=== PATIENT | female | born 1950 | race Caucasian/White ===

== ENCOUNTER 2017-07-10 17:29 | Inpatient (IN) | payer MEDICARE ==
[~2017-07-10] VITALS: Ht 165.1 cm; Wt 87.6 kg
--- NOTE | 2017-07-10 17:45 | NUR ---
BIB RA 102 C/O ALTERED MENTAL STATUS X LAST NIGHT, CL=[id number]. FACE SYMMETRICAL, BILATERAL STRONG AND EQUAL BULLDOZER OPERATOR, DIAPHORETIC. NO SOB. VITALS STABLE. SAFETY AND COMFORT MEASURES IN PLACE. AWAITNG MD ORDERS.
--- NOTE | 2017-07-10 18:30 | NUR ---
PHYSICIAN UNDERWRITER AT BEDSIDE.
--- NOTE | 2017-07-10 18:32 | NUR ---
TURNAROUND ENGINEER AT BEDSIDE FOR BLOOD DRAW.
[2017-07-10 18:44] LABS: BASOPHILS % (AUTO) 0.5 % (0.0-2.0); EOSINOPHILS # (AUTO) 0.1 /CMM (0.0-0.7); EOSINOPHILS % (AUTO) 1.5 % (0.0-6.0); HEMATOCRIT 30 % (33-45); HEMOGLOBIN 10.1 g/dL (11.5-14.8); LYMPHOCYTES # (AUTO) 1.4 /CMM (0.8-4.8); LYMPHOCYTES % (AUTO) 20.9 % (20.0-44.0); MEAN CORPUSCULAR HEMOGLOBIN 31 PG (26.0-33.0); MEAN CORPUSCULAR HGB CONC 34 g/dl (31.0-36.0); MEAN CORPUSCULAR VOLUME 91 fL (82-100); MONOCYTES # (AUTO) 0.4 /CMM (0.1-1.30); MONOCYTES % (AUTO) 6.5 % (2.0-12.0); NEUTROPHILS # (AUTO) 4.6 /CMM (1.8-8.9); NEUTROPHILS % (AUTO) 70.6 % (43.0-81.0); PLATELET COUNT (AUTO) 205 /CMM (150-450); RDW COEFFICIENT OF VARIATION 12.2 (11.5-15.0); RED BLOOD CELL COUNT(AUTO) 3.29 MIL/uL (4.0-5.2); WHITE BLOOD COUNT (AUTO) 6.5 K/uL (4.3-11.0)
--- NOTE | 2017-07-10 18:56 | NUR ---
URINE OBTAINED VIA STRAIGHT CATH PER MD ORDERS AND SENT TO LAB.
[2017-07-10 18:59] LABS: CALCIUM, SERUM 9.6 mg/dL (8.5-10.1); CARBON DIOXIDE 22 mmol/L (21-32); CHLORIDE 107 mmol/L (98-107); CREATININE 1.3 mg/dL (0.6-1.3); GLUCOSE 240 mg/dL (74-106); POTASSIUM 4.8 mmol/L (3.5-5.1); SODIUM SERUM 140 mmol/L (136-145); UREA NITROGEN, BLOOD 35 mg/dL (7-18)
[2017-07-10 19:00] LABS: INR 1.07 (0.87-1.13); PROTHROMBIN TIME 11.1 SECS (9.5-12.7)
[2017-07-10 19:05] LABS: ACETAMINOPHEN < 2 ug/ml (10-30); ALANINE AMINOTRANSFERASE 54 U/L (12-78); ALBUMIN 3.3 g/dL (3.4-5.0); ALCOHOL, BLOOD < 3 mg/dL (0-0); ALKALINE PHOSPHATASE 137 U/L (46-116); ASPARTATE AMINOTRANSFERASE 32 U/L (15-37); BILIRUBIN,DIRECT 0.1 mg/dL (0.0-0.2); BILIRUBIN,TOTAL 0.3 mg/dL (0.2-1.0); SALICYLATE 3.1 mg/dL (2.8-20.0); TOTAL PROTEIN, SERUM 7.6 g/dL (6.4-8.2)
--- NOTE | 2017-07-10 19:05 | NUR ---
PATIENT TAKEN TO CT
--- NOTE | 2017-07-10 19:05 | NUR ---
Julio santiago in [facility] - 07/10/17 at 1938 by RICO PATIENT RETURNED FROM CT.
[2017-07-10 19:06] LABS: TROPONIN I < 0.017 ng/mL (0.00-0.056)
--- NOTE | 2017-07-10 19:10 | NUR ---
CALLED NURSING SUP FOR TELE BED
--- NOTE | 2017-07-10 19:15 | NUR ---
PATIENT RETURNED FROM CT IN STABLE CONDITION.
[2017-07-10 19:18] LABS: SERUM AMMONIA 34 umol/L (11-32)
--- NOTE | 2017-07-10 19:25 | NUR ---
SUKH DOYLE TALKING TO DR. MOORE REGARDING PT ADMISSION.
[2017-07-10 19:27] LABS: APPEARANCE,URINE Clear (CLEAR); BILIRUBIN,URINE Negative (NEGATIVE); BLOOD, URINE Moderate Ery/uL (NEGATIVE); COLOR,URINE Yellow (YELLOW); KETONES,URINE Negative (NEGATIVE); LEUKOCYTE ESTERASE ,URINE Trace (NEGATIVE); NITRITE, URINE Negative (NEGATIVE); PH,URINE 5.5 (5.0-8.0); PROTEIN,URINE Negative (NEGATIVE); UGLUCOSE 250 MG/DL mg/dL (NEGATIVE); UROBILINOGEN,URINE 0.2 EU/dL (0.2)
--- NOTE | 2017-07-10 19:29 | NUR ---
BED 324-1 TELE
[2017-07-10] MEDS ORDERED: IV NS 0.9% 1,000 ML BAG IV ONE (19:30)
[2017-07-10] MEDS ORDERED: IV NS 0.9% 1,000 ML IV PRN (19:33)
--- NOTE | 2017-07-10 19:35 | NUR ---
REPORT GIVEN TO BLINDMAKER, ED FOR CRISTAL.
[2017-07-10 19:40] LABS: BACTERIA,URINE Few /HPF (None Seen); CLINITEST,URINE 1%; SQUAMOUS EPITHELIAL CELL,UR Moderate /HPF (None Seen)
--- NOTE | 2017-07-10 19:41 | NUR ---
REPORT CALLED TO WELL SERVICING RIG OPERATOR JEM. WILL TRANSPORT PT VIA ACLS PROTOCOL.
--- NOTE | 2017-07-10 19:50 | NUR ---
PRIOR AUTHORIZATION TECHNICIAN NOTES: RECEIVED REPORT FROM ED APPLIANCE ADJUSTER, PT BROUGHT TO THE UNIT VIA STRETCHER, PT CAME IN BECAUSE OF ALOC, PT ON SIMPLE MASK PT IS MOUTH BREATHER AND DESATURATE WHEN SLEEPING, PT IS A/O X2, BOYFRIEND AT BED SIDE, PT HAS LEFT HAND G20 IV ACCESS WITH ONGOING 1L NS BOLUS. PT ORIENTED TO THE UNIT POLICY AND HOURLY ROUNDING, PLACED ON TELE MONITOR, WITH SINUS RHYTHM TO SINUS ARRYTHMIA READING HR 80, PT DENIES ANY CHEST PAIN BUT IS C/O LEG PAIN AND FEET PAIN / REQUESTING FOR MORPHINE TAB. SAFETY PRECAUTIONS FOR FALL INITAITED CALL LIGHT IN REACH, VS TAKEN AND RECORDED, WILL CONTINUE TO MONITOR
[2017-07-10 20:00] VITALS: BP_SYST 154; BP_SYST 155; BP_DIAS 105; BP_DIAS 92
[2017-07-10] MEDS ORDERED: INSULIN REGULAR, HUMAN 100 UNIT/ML 3 ML VIAL SQ PRN (20:00)
[2017-07-10] MEDS ORDERED: ZOLPIDEM TARTRATE 5 MG TABLET PO PRN (20:00)
[2017-07-10] MEDS ORDERED: DEXTROSE 50%-WATER 50 ML DISP.SYRIN IV PRN ×2 (20:00→20:15)
[2017-07-10] MEDS ORDERED: HYDROCODONE/APAP 5/325MG 1 EACH TABLET PO PRN (20:00)
[2017-07-10] MEDS ORDERED: ONDANSETRON HCL/PF 4 MG/2 ML VIAL IVP PRN ×2 (20:00→20:15)
[2017-07-10] MEDS ORDERED: MAGNESIUM HYDROXIDE 30 ML UDC PO PRN ×2 (20:00→20:15)
[2017-07-10] MEDS ORDERED: *INSULIN REGULAR(HUMULIN R)HUM 100 UNIT/ML VIAL SQ PRN (20:00)
[2017-07-10] MEDS ORDERED: ACETAMINOPHEN 325 MG TABLET PO PRN ×2 (20:00→20:15)
[2017-07-10] MEDS ORDERED: MAG HYDROX/AL HYDROX/SIMETH 30 ML UDC PO PRN ×2 (20:00→20:15)
[2017-07-10] MEDS ORDERED: Z GUARD REMEDY 2 OZ OINT TP PRN ×2 (20:00→20:15)
[2017-07-10] MEDS ORDERED: METF10002 PO (20:25)
[2017-07-10] MEDS ORDERED: MORP30TA PO (20:25)
--- NOTE | 2017-07-10 20:25 | NUR ---
RN NOTES: PT STATED SHE CANNOT REMEMBER THE OTHER MEDICATION SHE'S TAKING AT HOME, SHE ADDED TJHAT THE ONLY IMPORTANT ONE'S SHE CAN REMEMBER IS HER MORPHINE TABLET 30MG TAB PO AND SHE TAKES IT 3X A DAY, AND SHE ALSO TAKES METFORMIN 1000MG TID, ALSO SHE ADDED HYDROXYZINE 60MG TAB AT NIGHT TIME TO HELP HER SLEEP. WHEN ASKED ABOUT HER OTHER MEDS LIKE BP MEDS SHE STATED SHE CANNOT RECALL, SO I INFORMED THE PT'S BOYFRIEND TO PLEASE BRING THE MEDICATION BOTTLE OR MED LIST IN AM TO HELP WITH MED RECONCILIATION, AND THEY AGREE. ALSO PT REFUSED SCD SHE STATED HER LEG ARE ALREADY HURTING AND DOESNT WANT ANYTHING FOR THE LEGS. EDUCATION PROVIDED TO THE PT, REGARDING RISK AND BENEFITS OF DVT PUMP.
[2017-07-10] MEDS: HYDROCODONE/APAP 5/325MG 1 EACH TABLET PO PRN (20:31)
--- NOTE | 2017-07-10 20:31 | NUR ---
PRN NORCO: PT C/O PAIN ON HER BILATERAL LEG AND FEET, REQUESTING FOR HER OWN MORPHINE TABLET 30MG, I INFORMED HER THAT I HAVE TO CALL MD REGARDING THIS MEDICATION SINCE THERE'S ONLY NORCO ORDERED FOR HER PAIN, PT STATED SHE WILL GET NORCO INSTEAD AND CALL DOCTOR AFTERWARDS, PT'S BOYFRIEND AT BED SIDE. PRN NORCO 5/325 MG TAB PO ADMINISTERED TO THE PT AT THIS TIME, WILL CONTINUE TO MONITOR AND REASSES
--- NOTE | 2017-07-10 21:00 | NUR ---
SKIN ASSESSMENT: BODY CHECK PERFORMED, NO SKIN ISSUES NOTED, NO WOUND OR REDNESS ON PERINEAL AND SACRAL AREA, WITNESS BY SKY BARTON. ALSO PT'S BOYFRIEND BROUGHT PT'S CLOTHES BACK TO THEIR HOUSE.
[2017-07-10 22:00] VITALS: BP 155/79
[2017-07-10] MEDS ORDERED: BLOOD SUGAR DIAGNOSTIC 1 EACH STRIP VI SCH (22:00)
--- NOTE | 2017-07-10 22:26 | NUR ---
rn notes: contacted [facility] freedom of information officer regarding pt's diet order, earlier pt was placed on ccho diet but apparently afterwards it was cancelled, pt is diabetic, also to f/u as pt requesting to get her own morphine as pain medication
[2017-07-10] MEDS ORDERED: INSULIN REGULAR, HUMAN 100 UNIT/ML 3 ML VIAL ONE (22:30)
--- NOTE | 2017-07-10 22:37 | NUR ---
RN NOTES: SPOKE WITH DR MOORE, INFORMED ABOUT PT'S REQUEST FOR MORPHINE TABLET ALSO INFORMED ABOUT PT'S TELE READING SINUS RHYTHM TO SINUS ARRHYTHMIA HR 65-70'S VSS, PT HAS NO C/O CHEST PAIN A/O X2 ON SIMPLE MASK AT 6L, INFORMED ALSO ABOUT DIET ORDER, AND REPORTED ABNORMAL LABS SUCH AMMONIA 34, BNP 228, U.GLUCOSE 250MG/DL, URINE WBC 6-10, + URINE OPIATES, PER MD STATED "PUT DIABETIC DIET, AND WILL TAKE A LOOK AT MED RECON, AND CONTINUE MONITORING FOR HEART RHYTHM".
[2017-07-10] MEDS: BLOOD SUGAR DIAGNOSTIC 1 EACH STRIP VI SCH (22:45)
[2017-07-10] MEDS: IV NS 0.9% 1,000 ML IV PRN (22:46)
[2017-07-10] MEDS: *INSULIN REGULAR(HUMULIN R)HUM 100 UNIT/ML VIAL SQ PRN (22:48)
--- NOTE | 2017-07-10 22:48 | NUR ---
accuc check: blood sugar checked and reveal 260, 6units of insulin given per sliding scale, will monitor pt for any s/s of hypoglycemia
[2017-07-10] MEDS ORDERED: HYDR-3026 PO (23:06)
[2017-07-10] MEDS ORDERED: CEFTRIAXONE 1 G VIAL ONE (23:43)
--- NOTE | 2017-07-10 23:50 | NUR ---
rn notes: pt accidentally pulled out her iv access, tried to reinset an iv 3x but veins blew, called dehorner maddi to start a line
[2017-07-11] VITALS (7 sets, daily range): BP systolic 147–176; BP diastolic 68–99
[2017-07-11] MEDS: CEFTRIAXONE 1 G in IV D5W 50 ML IV SCH ×2 (00:23→22:32)
[2017-07-11] MEDS: ZOLPIDEM TARTRATE 5 MG TABLET PO PRN (00:24)
--- NOTE | 2017-07-11 00:25 | NUR ---
prn ambien: pt requested for sleeping pill, prn ambien 5mg tab po administered to the pt at this time, will continue to monitor and reassess
[2017-07-11] MEDS: HYDROCODONE/APAP 5/325MG 1 EACH TABLET PO PRN ×3 (02:00→10:41)
--- NOTE | 2017-07-11 02:00 | NUR ---
prn norco: pt c/o 04/27 pain on bilateral leg and feet requesting for norco, prn norco 5/325 mg tab po administered to the pt at this time, will continue to monitor and reassess
--- NOTE | 2017-07-11 06:24 | NUR ---
PRN NORCO: PT C/O 04/27 PAIN ON BILATERAL L;EGS FEET TOES, REQUESTING FOR PAIN MEDICATION, PRN NORCO 5/325 MG TAB PO ADMINISTERED TO THE PT AT THIS TIME, WILL CONTINUE TO MONITOR AND REASSESS
[2017-07-11] MEDS: BLOOD SUGAR DIAGNOSTIC 1 EACH STRIP VI SCH ×4 (06:27→22:32)
[2017-07-11] MEDS: INSULIN REGULAR, HUMAN 100 UNIT/ML 3 ML VIAL SQ PRN ×3 (06:29→18:00)
--- NOTE | 2017-07-11 06:30 | NUR ---
ACCU CHECK: BLOOD SUGAR CHECK AND REVEAL 190, 3UNITS OF INSULIN GIVEN PER SLIDING SCALE, WILL MONITOR PT FOR ANY S/S OF HYPOGLYCEMIA, PT ON DIABETIC DIET, TOLERATING PO INTAKE WELL
--- NOTE | 2017-07-11 06:45 | NUR ---
rn closing notes: pt in bed, remains a/o x2, on simple mask 5L, res[iration even and unlabored, last pain meds administered at 0624am, left hand iv access remains patent and flushing well infuisng with ns at 75ml/hr, remains on sinus rhythm with episode of sinus arrhythmia hr 90. ble kept offloaded. vs remains stable, needs attended. awaiting for pt's boyfriend to bring the medication list as pt cannot remember all her meds especially the dosage. safety precautions for fall remains engaged call light in reach, will endorse to day rn for anita.
[2017-07-11] MEDS ORDERED: PANTOPRAZOLE 40 MG TABLET.DR PO SCH (07:30)
--- NOTE | 2017-07-11 07:58 | NUR ---
TELE/RN NOTES RECEIVED PATIENT RESTING IN BED AWAKE AND ORIENTED X3, ON 02 AT 4LPM VIA SIMPLE MASK. PER TELE MONITOR SR HR 82 AT THIS TIME. PATIENT COMPLAINTS OF CHRONIC PAIN ON MULTIPLE PAIN MEDICATIONS. PHARMACIST RECON NURSE BY THE BEDSIDE OBTAINING MEDICATION HISTORY. IV TO LEFT HAND 22G INFUSING NS AT 75CC/HR. SAFETY MEASURES RENDERED, CALL LIGHT PLACED WITHIN REACH. WILL CONTINUE TO MONITOR.
[2017-07-11] MEDS: PANTOPRAZOLE 40 MG TABLET.DR PO SCH (09:22)
--- NOTE | 2017-07-11 10:41 | NUR ---
MS/RN NOTES PATIENT COMPLAINING OF BLE/BACK PAIN AT LEVEL 7/10 DESCRIBED TO BE DULL/HEAVY. ADMINISTERED NORCO 5-325MG 1 TAB EVERY 4 HOURS NEEDED FOR PAIN
--- NOTE | 2017-07-11 11:19 | NUR ---
MS/RN NOTES PATIENTS BOYFRIEND WILL PROVIDE MEDICATION LIST.
[2017-07-11] MEDS ORDERED: METO25TA3 PO (14:49)
[2017-07-11] MEDS ORDERED: MELO-264 PO (14:49)
[2017-07-11] MEDS ORDERED: DULO60CA45 PO (14:49)
[2017-07-11] MEDS ORDERED: VALA500T35 PO (14:49)
[2017-07-11] MEDS ORDERED: FURO-145 PO (14:49)
[2017-07-11] MEDS ORDERED: DOXA2TAB2 PO (14:49)
[2017-07-11] MEDS ORDERED: LOSA100T15 PO (14:49)
[2017-07-11] MEDS ORDERED: ATOR40TA PO (14:49)
[2017-07-11] MEDS ORDERED: PHEN100C4 PO (14:49)
[2017-07-11] MEDS ORDERED: ZIPR60CA2 PO (14:49)
[2017-07-11] MEDS ORDERED: FENO200C PO (14:49)
[2017-07-11] MEDS ORDERED: GABA-536 PO (14:49)
[2017-07-11] MEDS ORDERED: OMEP40CA37 PO (14:49)
[2017-07-11] MEDS ORDERED: MORP30TA59 PO (14:49)
[2017-07-11] MEDS ORDERED: OXYC-128 PO (14:49)
[2017-07-11] MEDS ORDERED: TRAZ-144 PO (14:49)
--- NOTE | 2017-07-11 15:30 | NUR ---
MS/RN NOTES HOME MEDICATIONS PROVIDED TO MED RECON NURSE NOTIFIED TO RECONCILE.
[2017-07-11] MEDS: PHENYTOIN EXTENDED RELEASE 100 MG CAPSULE PO SCH (16:32)
[2017-07-11] MEDS: MORPHINE SULFATE SR 30 MG TABLET.SA PO SCH (16:33)
[2017-07-11] MEDS: LOSARTAN POTASSIUM 50 MG TABLET PO SCH (16:33)
[2017-07-11] MEDS: GABAPENTIN 400 MG CAPSULE PO SCH (16:33)
[2017-07-11] MEDS: oxyCODONE/APAP (5/325 MG) 1 UDTAB TABLET PO SCH (16:34)
[2017-07-11] MEDS: ZIPRASIDONE 20 MG CAPSULE PO SCH (17:32)
[2017-07-11] MEDS: ATORVASTATIN 40 MG TABLET PO SCH (17:59)
--- NOTE | 2017-07-11 18:35 | NUR ---
MS/RN NOTES PATIENT RESTING IN BED, ALL DUE MEDICATIONS GIVEN ALL NEEDS MET AND ATTENDED. NO SIGNIFICANT CHANGES NOTED, PATIENT REMAINS STABLE AT THIS TIME. ALL MEDICATIONS RECONCILED AND ADMINISTERED PER MD ORDERS, [place] MANAGEMENT PROVIDED, SAFETY MEASURES RENDERED. PATIENT RESTING IN BED COMFORTABLY. BLOOD CHECKS DONE SCHEDULED. NO S/S OF COMPLICATIONS NOTED. WILL ENDOURSE CARE TO MAITRE D FOR CRISTAL.
--- NOTE | 2017-07-11 19:37 | NUR ---
RN INITIAL NOTES: RECEIVED REPORT FROM TAYLOR FUENTES, PT IN BED, SLEEPING, AROUSES TO TACTILE STIMULI, PT CURRENTLY ON RA, BUT USES SIMPLE MASK WHEN ASLEEP, SHE ALWAYS FORGOT TO USE THE MASK, EDUCATION PROVIDED TO THE PT, PT DENIES ANY PAIN OR DISCOMFORT AT THIS TIME, SHE RECEIVED HER PAIN MEDICATION AROUND 1630. LEFT HAND IV ACCESS REMAINS PATENT AND FLUSHING WELL, INFUSING WITH NS AT 75ML/HR. BLE KEPT OFFLOADED. PT STILL REFUSED FOR SCD. SAFETY PRECAUTIONS FOR FALL INITIATED CALL LIGHT IN REACH, WILL CONTINUE TO MONITOR
[2017-07-11] MEDS: IV NS 0.9% 1,000 ML IV PRN (21:21)
[2017-07-11] MEDS: TRAZODONE 50 MG TABLET PO SCH (22:00)
[2017-07-11] MEDS: *INSULIN REGULAR(HUMULIN R)HUM 100 UNIT/ML VIAL SQ PRN (22:34)
--- NOTE | 2017-07-11 22:34 | NUR ---
ACCU CHECK: BLOOD SUGAR CHECK AND REVEAL 189, 3UNITS OF INSULIN GIVEN PER SLIDING SCALE, PT ON DIABETIC DIET, TOLERATING PO INTAKE WELL, ALSO RECEIVING NS AT 75ML/HR. WILL MONITOR PT FOR ANY S/S OF HYPOGLYCEMIA.
--- NOTE | 2017-07-11 23:41 | NUR ---
NON ADMIN OF DESYREL: PT HAS SCHEDULED DESYREL AT 2200, HOWEVER PT STILL VERY SLEEPY FROM THE PAIN MEDICATIONS SHE RECEIVED AT 1630. PT AROUSES TO TACTILE STIMULI, AND WHEN YOU CALL THE NAME, PT ON SIMPLE MASK 4L VSS, RELAYED TO MIXING TUMBLER OPERATORMLIIND DODSON, DESYREL WILL NOT BE ADMINISTER AT THIS TIME FOR PT'S SAFETY, ALREADY VERY SLEEPY, BLOOD SUGAR 189, ABLE TO EAT SOME SNACKS BUT AFTER THAT WENT BACK TO SLEEP AGAIN. WILL CONTINUE MONITORING THE PT.
[2017-07-12] VITALS: BP 145/66
[2017-07-12 00:37] VITALS: BP 145/66
[2017-07-12] MEDS: HYDROCODONE/APAP 5/325MG 1 EACH TABLET PO PRN ×3 (00:43→23:03)
--- NOTE | 2017-07-12 00:43 | NUR ---
PRN NORCO: PT C/O LOWE BACK PAIN 04/27 REQUESTING FOR PAIN MEDICATION, PRN NORCO 5/325 MG TAB PO ADMINISTERED TO THE PT AT THIS TIME, WILL CONTINUE TO MONITOR AND REASSESS. ALSO INFORMED PT REGARDING DESYREL, SHE STATED SHE DOESN'T WANT IT AND WOULD RATHER GET HER PAIN MEDS,
[2017-07-12] MEDS: ZOLPIDEM TARTRATE 5 MG TABLET PO PRN (01:34)
--- NOTE | 2017-07-12 01:34 | NUR ---
PRN AMBIEN: PT REQUESTED FOR SLEEPING PILL, PRN AMBIEN 5MG TAB PO ADMINISTERED TO THE PT AT THIS TIME,
--- NOTE | 2017-07-12 04:47 | NUR ---
prn norco: pt c/o head ache and back ache 04/27 requesting for norco, prn norco 5/325 mg tab po administered to the pt at this time, will continue to monitor and reassess
[2017-07-12] MEDS: INSULIN REGULAR, HUMAN 100 UNIT/ML 3 ML VIAL SQ PRN ×3 (06:18→17:39)
[2017-07-12] MEDS: BLOOD SUGAR DIAGNOSTIC 1 EACH STRIP VI SCH ×4 (06:20→21:23)
--- NOTE | 2017-07-12 06:20 | NUR ---
accu check: blood sugar check and reveal 189, 3units of insulin given per sliding scale, pt would like to get insulin now she stated she would like to eat pudding as she is hungry.
--- NOTE | 2017-07-12 06:47 | NUR ---
rn closing notes: pt in bed, awake, remains a/o x 2-3 on simple mask at 4L respiration even and unlabored. last pain meds given at 0447am. left hand iv access remains patent and flushing well, infusing with ns at 75ml/hr. ble kept offloaded. awaiting pt eval. vs remains stable, needs attended. safety precautions for fall remains engaged call light in reach, will endorse to day rn for anita.
--- NOTE | 2017-07-12 07:25 | NUR ---
RN OPEN NOTES RECEIVED REPORT FROM WORKGROUP LEADER NURSE. PATIENT IS IN BED, AWAKE AND ORIENTED TO NAME, PLACE AND TIME. NO SIGNS OF DISTRESS OR DISCOMFORT. BREATHING EVEN AND UNLABORED. IV SITE IS INTACT AND PATENT WITH NS INFUSING AT 75ML/HR, NO SIGNS OF REDNESS OR INFILTRATION. BED IN LOW LOCKED POSITION WITH SIDE RAILS X2. CALL LIGHT WITHIN REACH. WILL CONTINUE TO MONITOR AND ASSESS PATIENT THOROUGH OUT MY SHIFT .
[2017-07-12] MEDS ORDERED: Medication Not On Formulary EA (Omeprazole 40 MG) PO SCH (07:30)
[2017-07-12 08:00] VITALS: BP 155/82
[2017-07-12] MEDS: PANTOPRAZOLE 40 MG TABLET.DR PO SCH (08:29)
[2017-07-12] MEDS: DOXAZOSIN MESYLATE (1 MG) 1 MG TABLET PO SCH (08:30)
[2017-07-12] MEDS: VALACYCLOVIR HCL 500 MG TABLET PO SCH (08:31)
[2017-07-12] MEDS: PHENYTOIN EXTENDED RELEASE 100 MG CAPSULE PO SCH ×2 (08:32→16:35)
[2017-07-12] MEDS: GABAPENTIN 400 MG CAPSULE PO SCH ×3 (08:33→16:36)
[2017-07-12] MEDS: METOPROLOL SUCCINATE 25 MG TAB.SR.24H PO SCH (08:33)
[2017-07-12] MEDS: ZIPRASIDONE 20 MG CAPSULE PO SCH ×2 (08:34→16:36)
[2017-07-12] MEDS: LOSARTAN POTASSIUM 50 MG TABLET PO SCH (08:35)
[2017-07-12] MEDS: DULOXETINE HCL 30 MG CAPSULE.DR PO SCH ×2 (08:35→16:36)
[2017-07-12] MEDS: FENOFIBRATE NANOCRYS (145 MG) 145 MG TABLET PO SCH (08:36)
[2017-07-12] MEDS: oxyCODONE/APAP (5/325 MG) 1 UDTAB TABLET PO SCH ×3 (08:37→17:33)
[2017-07-12] MEDS: MORPHINE SULFATE SR 30 MG TABLET.SA PO SCH ×3 (08:38→17:33)
[2017-07-12 09:17] LABS: BASOPHILS % (AUTO) 0.5 % (0.0-2.0); EOSINOPHILS # (AUTO) 0.1 /CMM (0.0-0.7); EOSINOPHILS % (AUTO) 1.5 % (0.0-6.0); HEMATOCRIT 34 % (33-45); HEMOGLOBIN 11.2 g/dL (11.5-14.8); LYMPHOCYTES # (AUTO) 1.9 /CMM (0.8-4.8); LYMPHOCYTES % (AUTO) 21.7 % (20.0-44.0); MEAN CORPUSCULAR HEMOGLOBIN 31 PG (26.0-33.0); MEAN CORPUSCULAR HGB CONC 33 g/dl (31.0-36.0); MEAN CORPUSCULAR VOLUME 92 fL (82-100); MONOCYTES # (AUTO) 0.5 /CMM (0.1-1.30); MONOCYTES % (AUTO) 5.3 % (2.0-12.0); NEUTROPHILS # (AUTO) 6.1 /CMM (1.8-8.9); PLATELET COUNT (AUTO) 227 /CMM (150-450); RDW COEFFICIENT OF VARIATION 13.1 (11.5-15.0); RED BLOOD CELL COUNT(AUTO) 3.68 MIL/uL (4.0-5.2); WHITE BLOOD COUNT (AUTO) 8.6 K/uL (4.3-11.0)
[2017-07-12 09:40] LABS: CALCIUM, SERUM 9.8 mg/dL (8.5-10.1); CREATININE 0.9 mg/dL (0.6-1.3); MAGNESIUM 1.3 mg/dL (1.8-2.4); PHOSPHORUS 3.6 mg/dL (2.5-4.9); POTASSIUM 3.8 mmol/L (3.5-5.1)
[2017-07-12] MEDS ORDERED: IV D5/0.45 NACL 500 ML IV SCH (13:00)
[2017-07-12] MEDS: IV D5/0.45 NACL 1,000 ML IV SCH (13:17)
[2017-07-12] MEDS: Magnesium 1GM/D5W 100ML PREMIX 100 ML IV SCH ×4 (13:17→17:40)
[2017-07-12 16:00] VITALS: BP 151/82
[2017-07-12] MEDS: ATORVASTATIN 40 MG TABLET PO SCH (17:32)
--- NOTE | 2017-07-12 18:37 | NUR ---
RN CLOSING NOTES PATIENT IS IN BED, ALERT AND ORIENTED TO NAME, PLACE AND TIME. NO SIGNS OF DISTRESS OR DISCOMFORT. BREATHING EVEN AND UNLABORED. IV SITE IS INTACT AND PATENT, CURRENTLY RUN 75ML/HR OF D51/2NS. NO SIGNS OR SYMPTOMS OF REDNESS OR INFILTRATION. MAGNESIUM LEVEL WAS 1.3, 4 GRAMS OF MAGNESIUM ADMINISTERED. PATIENT KEPT CLEAN AND DRY. ALL NURSING CARE ANTICIPATED. POSSIBLE DC IN AM. BED IN LOW LOCKED POSITION WITH SIDE RAILS X2. CALL LIGHT WITHIN REACH. WILL ENDORSE TO TIMBER TRIMMER NURSE
[2017-07-12] MEDS: TRAZODONE 50 MG TABLET PO SCH (21:23)
[2017-07-12] MEDS: *INSULIN REGULAR(HUMULIN R)HUM 100 UNIT/ML VIAL SQ PRN (21:25)
[2017-07-12] MEDS: CEFTRIAXONE 1 G in IV D5W 50 ML IV SCH (23:03)
[2017-07-13] MEDS: HYDROCODONE/APAP 5/325MG 1 EACH TABLET PO PRN (03:04)
--- NOTE | 2017-07-13 06:00 | NUR ---
pt alert,oriented, vss, afebrile, continue with iv fluids, new iv site started, old site infiltrated. chronic back pain and knee pain, norco given q4 hrs for migrain at night. slept well, all needs attended.call light at reached, no bm incontinent with urine at night.
[2017-07-13 06:32] LABS: BASOPHILS % (AUTO) 0.4 % (0.0-2.0); EOSINOPHILS # (AUTO) 0.2 /CMM (0.0-0.7); EOSINOPHILS % (AUTO) 2.9 % (0.0-6.0); HEMATOCRIT 31 % (33-45); HEMOGLOBIN 10.5 g/dL (11.5-14.8); LYMPHOCYTES # (AUTO) 1.9 /CMM (0.8-4.8); LYMPHOCYTES % (AUTO) 22.7 % (20.0-44.0); MEAN CORPUSCULAR HEMOGLOBIN 31 PG (26.0-33.0); MEAN CORPUSCULAR HGB CONC 33 g/dl (31.0-36.0); MEAN CORPUSCULAR VOLUME 92 fL (82-100); MONOCYTES # (AUTO) 0.6 /CMM (0.1-1.30); MONOCYTES % (AUTO) 7.7 % (2.0-12.0); NEUTROPHILS # (AUTO) 5.4 /CMM (1.8-8.9); NEUTROPHILS % (AUTO) 66.3 % (43.0-81.0); PLATELET COUNT (AUTO) 195 /CMM (150-450); RDW COEFFICIENT OF VARIATION 12.7 (11.5-15.0); RED BLOOD CELL COUNT(AUTO) 3.39 MIL/uL (4.0-5.2); WHITE BLOOD COUNT (AUTO) 8.2 K/uL (4.3-11.0)
[2017-07-13] MEDS: BLOOD SUGAR DIAGNOSTIC 1 EACH STRIP VI SCH ×2 (06:41→12:36)
[2017-07-13] MEDS: PANTOPRAZOLE 40 MG TABLET.DR PO SCH (06:41)
[2017-07-13] MEDS: IV D5/0.45 NACL 1,000 ML IV SCH (06:42)
[2017-07-13] MEDS: INSULIN REGULAR, HUMAN 100 UNIT/ML 3 ML VIAL SQ PRN ×2 (06:46→12:41)
[2017-07-13 07:00] LABS: CALCIUM, SERUM 8.8 mg/dL (8.5-10.1); MAGNESIUM 1.5 mg/dL (1.8-2.4); PHOSPHORUS 3.9 mg/dL (2.5-4.9); POTASSIUM 3.9 mmol/L (3.5-5.1)
--- NOTE | 2017-07-13 07:10 | NUR ---
MS RN OPENING NOTE RECEIVED REPORT ON THE PATIENT. IN BED A&OX4. PRESENTS WITH NON-LABORED, EVEN BREATHING ON RA. PATIENT REFUSED TO WEAR THE DVT PUMPS. SN EDUCATED THE PATIENT ON THE IMPORTANCE OF MECHANICAL VTE PROPHYLAXIS AND ABOUT VTE RISK. PATIENT VERBALIZED UNDERSTANDING AND AGREED FOR DVT PUMPS TO BE PUT ON. BED IS IN LOWEST POSITION, SIDE RAILS UP X 2, CALL LIGHT WITHIN REACH. ALL NEEDS ATTENDED TO. WILL CONTINUE TO MONITOR.
[2017-07-13 08:00] VITALS: BP_SYST 160; BP_DIAS 74; BP_DIAS 79
[2017-07-13] MEDS: FENOFIBRATE NANOCRYS (145 MG) 145 MG TABLET PO SCH (10:02)
[2017-07-13] MEDS: GABAPENTIN 400 MG CAPSULE PO SCH ×2 (10:03→12:42)
[2017-07-13] MEDS: PHENYTOIN EXTENDED RELEASE 100 MG CAPSULE PO SCH (10:04)
[2017-07-13] MEDS: VALACYCLOVIR HCL 500 MG TABLET PO SCH (10:04)
[2017-07-13] MEDS: ZIPRASIDONE 20 MG CAPSULE PO SCH (10:05)
[2017-07-13] MEDS: METOPROLOL SUCCINATE 25 MG TAB.SR.24H PO SCH (10:06)
[2017-07-13] MEDS: LOSARTAN POTASSIUM 50 MG TABLET PO SCH (10:07)
[2017-07-13] MEDS: oxyCODONE/APAP (5/325 MG) 1 UDTAB TABLET PO SCH ×2 (10:08→12:44)
[2017-07-13] MEDS: DOXAZOSIN MESYLATE (1 MG) 1 MG TABLET PO SCH (10:09)
[2017-07-13] MEDS: MORPHINE SULFATE SR 30 MG TABLET.SA PO SCH ×2 (10:10→12:43)
[2017-07-13] MEDS: DULOXETINE HCL 30 MG CAPSULE.DR PO SCH (10:11)
--- NOTE | 2017-07-13 10:13 | NUR ---
MS RN NOTE PATIENT WAS AMBULATION WITH PT. MEDICATIONS ADMINISTERED AFTER THE WALK PER PATIENT REQUEST.
[2017-07-13] MEDS: Magnesium 1GM/D5W 100ML PREMIX 100 ML IV SCH ×2 (11:59→13:18)
[2017-07-13] MEDS ORDERED: LEVO500T15 PO (13:04)
[2017-07-13 16:37] VITALS: BP 118/81
--- NOTE | 2017-07-13 16:56 | NUR ---
MS RN DISCHARGING NOTE DISCHARGE ORDER RECEIVED. DISCHARGE INFORMATION PROVIDED TO PATIENT/CAREGIVER. PT/PCG VERBALIZED UNDERSTANDING OF THE TEACHINGS. IV CATHETER REMOVED. CATHETER TIP IS INTACT. NON S/S OF INFECTION. OCCLUSIVE DRESSING APPLIED TO THE IC SITE. ALL BELONGINGS ARE ACCOUNTED FOR. VS WNL. DENIES PAIN/SOB/DISCOMFORT/DIFFICULTY BREADING CAREGIVER AYLA AND THE AT THE BEDSIDE. LEAVING THE UNIT VIA WHEELCHAIR ACCOMPANIED BY THE SKY STEWART. PATIENT IS LEAVING THE UNIT IN STABLE CONDITION .
== END 2017-07-13 17:00 | disposition home health service (06) | DRG 682 ==
LOC: ER 17:30 → TELE 20:15 → MED 07-11 08:48
PROVIDERS: ADMIT Internal Medicine; ATTEND Internal Medicine
DX: N17.0 Acute kidney failure with tubular necrosis (principal); E43 Unspecified severe protein-calorie malnutrition; G92 Toxic encephalopathy; E87.0 Hyperosmolality and hypernatremia; E11.9 Type 2 diabetes mellitus without complications; D64.9 Anemia, unspecified; N39.0 Urinary tract infection, site not specified; I10 Essential (primary) hypertension; G89.29 Other chronic pain; E83.42 Hypomagnesemia; E88.09 Other disorders of plasma-protein metabolism, not elsewhere classified; M62.50 Muscle wasting and atrophy, not elsewhere classified, unspecified site; Z68.32 Body mass index [BMI] 32.0-32.9, adult
CPT/HCPCS: 36415; 70450-TC; 71010-TC; 80048-TC; 80076-TC; 80305; 81000-TC; 82140-TC; 82962-TC; 83735-TC; 83880; 84100-TC; 84443-TC; 84484-TC; 85025-TC; 85730-TC; 87081-TC; 87086-TC; 97116-TC; 97530-TC; A4606; G0480; J0696; J1815; J3475; J3490; J7030; J7050; J7060; Z7610

== ENCOUNTER 2017-07-25 10:08 | Inpatient (IN) | payer MEDICARE ==
[~2017-07-25] VITALS: Ht 167.6 cm; Wt 84.8 kg
[~2017-07-25 10:08] MED LIST: ATOR40TA PO; DOXA2TAB2 PO; DULO60CA45 PO; FENO200C PO; FURO-145 PO; GABA-536 PO; HYDR-3026 PO; LEVO500T15 PO; LOSA100T15 PO; MELO-264 PO; METF10002 PO; METO25TA3 PO; MORP30TA59 PO; OMEP40CA37 PO; OXYC-128 PO; PHEN100C4 PO; TRAZ-144 PO; VALA500T35 PO; ZIPR60CA2 PO
--- NOTE | 2017-07-25 10:10 | NUR ---
[id number] FROM HOME: DEHYDRATED. GENERALIZED WEKNESS. BS IN FIELD 120, NAD NOTED, VSS, RESP EVEN AND UNLABORED, BLOOD SAMPLE AND URINE SENT TO LAB, WAITING FOR MD AMAYA.
[2017-07-25] MEDS ORDERED: IV NS 0.9% 1,000 ML BAG IV ONE (10:30)
[2017-07-25 10:52] LABS: BASOPHILS % (AUTO) 0.1 % (0.0-2.0); EOSINOPHILS # (AUTO) 0.2 /CMM (0.0-0.7); EOSINOPHILS % (AUTO) 2.2 % (0.0-6.0); HEMATOCRIT 32 % (33-45); HEMOGLOBIN 10.6 g/dL (11.5-14.8); LYMPHOCYTES # (AUTO) 2.4 /CMM (0.8-4.8); LYMPHOCYTES % (AUTO) 23.5 % (20.0-44.0); MEAN CORPUSCULAR HEMOGLOBIN 31 PG (26.0-33.0); MEAN CORPUSCULAR HGB CONC 33 g/dl (31.0-36.0); MEAN CORPUSCULAR VOLUME 92 fL (82-100); MONOCYTES # (AUTO) 0.7 /CMM (0.1-1.30); MONOCYTES % (AUTO) 7.2 % (2.0-12.0); NEUTROPHILS # (AUTO) 6.7 /CMM (1.8-8.9); PLATELET COUNT (AUTO) 190 /CMM (150-450); RDW COEFFICIENT OF VARIATION 12.9 (11.5-15.0); RED BLOOD CELL COUNT(AUTO) 3.47 MIL/uL (4.0-5.2); WHITE BLOOD COUNT (AUTO) 10.1 K/uL (4.3-11.0)
[2017-07-25 11:07] LABS: INR 1.01 (0.87-1.13); PROTHROMBIN TIME 10.5 SECS (9.5-12.7)
[2017-07-25 11:14] LABS: ALANINE AMINOTRANSFERASE 22 U/L (12-78); ALBUMIN 3.4 g/dL (3.4-5.0); ALKALINE PHOSPHATASE 69 U/L (46-116); ASPARTATE AMINOTRANSFERASE 28 U/L (15-37); BILIRUBIN,DIRECT 0.1 mg/dL (0.0-0.2); BILIRUBIN,TOTAL 0.3 mg/dL (0.2-1.0); CALCIUM, SERUM 8.5 mg/dL (8.5-10.1); CARBON DIOXIDE 24 mmol/L (21-32); CHLORIDE 101 mmol/L (98-107); GLUCOSE 78 mg/dL (74-106); POTASSIUM 5.4 mmol/L (3.5-5.1); SODIUM SERUM 136 mmol/L (136-145); TOTAL PROTEIN, SERUM 7.2 g/dL (6.4-8.2); UREA NITROGEN, BLOOD 65 mg/dL (7-18)
[2017-07-25 11:17] LABS: TROPONIN I < 0.017 ng/mL (0.00-0.056)
[2017-07-25 11:42] LABS: BILIRUBIN,URINE NEGATIVE (NEGATIVE); BLOOD, URINE NEGATIVE Ery/uL (NEGATIVE); KETONES,URINE TRACE (NEGATIVE); LEUKOCYTE ESTERASE ,URINE NEGATIVE (NEGATIVE); NITRITE, URINE NEGATIVE (NEGATIVE); PROTEIN,URINE NEGATIVE (NEGATIVE); UGLUCOSE NEGATIVE (NEGATIVE); UROBILINOGEN,URINE 0.2 EU/dL (0.2)
[2017-07-25 11:43] LABS: APPEARANCE,URINE SLIGHTLY CLOUDY (CLEAR)
[2017-07-25 11:44] LABS: COLOR,URINE YELLOW (YELLOW)
[2017-07-25 11:58] LABS: BACTERIA,URINE Few /HPF (None Seen); MUCUS,URINE Moderate /LPF (None Seen); RBC,URINE 0-2 /HPF (0-2); SQUAMOUS EPITHELIAL CELL,UR 0-2 /HPF (None Seen); URINE AMORPHOUS URATE Moderate /HPF (None Seen); WBC,URINE 0-2 /HPF (0-3)
[2017-07-25] MEDS ORDERED: IV NS 0.9% 1,000 ML IV ONE (12:00)
[2017-07-25] MEDS ORDERED: HYDROCODONE/APAP 5/325MG 1 EACH TABLET PO PRN (12:30)
[2017-07-25] MEDS ORDERED: MAG HYDROX/AL HYDROX/SIMETH 30 ML UDC PO PRN (12:30)
[2017-07-25] MEDS ORDERED: DEXTROSE 50%-WATER 50 ML DISP.SYRIN IV PRN (12:30)
[2017-07-25] MEDS ORDERED: ZOLPIDEM TARTRATE 5 MG TABLET PO PRN (12:30)
[2017-07-25] MEDS ORDERED: MAGNESIUM HYDROXIDE 30 ML UDC PO PRN (12:30)
[2017-07-25] MEDS ORDERED: Z GUARD REMEDY 2 OZ OINT TP PRN (12:30)
--- NOTE | 2017-07-25 13:46 | NUR ---
REPORT GIVEN TO ALFREDO WAY FOR [facility] TELE 322-1
[2017-07-25] MEDS: MORPHINE SULFATE SR 30 MG TABLET.SA PO SCH ×2 (14:20→17:23)
[2017-07-25] MEDS: GABAPENTIN 400 MG CAPSULE PO SCH ×2 (14:20→17:19)
[2017-07-25] MEDS ORDERED: hydrOXYzine PAMOATE 50 MG CAPSULE PO PRN (14:30)
--- NOTE | 2017-07-25 14:48 | NUR ---
RN EMBEDDED ADMITTING NOTES NOTES PT ADMITTED TO UNIT @ 1420H VIA Q1 LabsRNEY ALERT AND ORIENTED X1, UN-ABLE TO COMMUNICATE AT THIS TIME. PT WITH DIAGNOSIS OF ACUTE RENAL FAILURE WITH SIGNIFICANT DIAGNOSIS OF CAD, HTN, HYPERLIPIDEMIA, GERD, OSTEOARTHRITIS, DM, RHEUMATOID ARTHRITIS, ANEMIA, ANXIETY, BIPOLAR AND HX OF STENT. PT PLACED ON TELE-MONITORING WITH CURRENT READING OF TACHYCARDIA WITH HR OF 108, NO SIGNS OF CHEST PAIN OBSERVED. ON SUPPLEMENTAL O2 VIA N/C AT 2LPM, BREATHING EVEN WITH NO SOB NOTED. PT HAS IV ACCESS ON RIGHT HAND G#20 INTACT AND PATENT. V/S TAKEN AND RECORDED. SKIN IS INTACT WITH SMALL DISCOLORATION ON LEFT LOWER MEDIAL LEG, PHOTOS TAKEN AND FILED ON CHART. PT HAS DEAL CATHETER IN PLACED F # 16 AND ACTIVELY DRAINING CLEAR YELLOW URINE TO URINARY BAG. PUT BED AT LOWEST POSITION AND LOCKED WITH SIDE-RAILS UP X 3. BED ALARM TURN ON. CALL LIGHT WITHIN REACH. MADE AWARE OF ADMISSION AND CAME TO UNIT TO ASSES AND EVALUATE PT. WILL CONTINUE TO MONITOR PT ACCORDINGLY
--- NOTE | 2017-07-25 14:57 | NUR ---
RN NOTES NEURONTIN 400MG NOT GIVEN, PT CAME AT 1420 AND NEXT DOSE WILL BE 1700. TIME GAP TO GIVE IS TOO SHORT. CHARGE NURSE AWARE. WILL CONTINUE TO MONITOR. Addendum: 07/25/17 at 1605 by JUAN ALVA RN ADDENDUM; PT NO C/O PAIN AND DOESN'T SHOW SIGNS OF PAIN. MS CONTIN 30MG TAB SCHEDULED FOR 1300 NOT GIVEN, PT CAME TO UNIT AT 1420. NEXT SCHEDULE IS 1700. GAP TO GIVE IF GIVEN NOW WILL BE TOO SHORT. WILL CONTINUE TO MONITOR
[2017-07-25] MEDS: ACETAMINOPHEN 325 MG TABLET PO PRN (15:45)
[2017-07-25] MEDS: IV NS 0.9% 1,000 ML IV PRN (15:46)
[2017-07-25 16:00] VITALS: BP 136/72
--- NOTE | 2017-07-25 16:00 | NUR ---
RN NOTES URINE SPECIMEN COLLECTED VIA DEAL AND CALL LAB FOR PICK -UP.
[2017-07-25 16:38] LABS: APPEARANCE,URINE SL CLOUDY (CLEAR); BILIRUBIN,URINE NEGATIVE (NEGATIVE); BLOOD, URINE 1+ Ery/uL (NEGATIVE); COLOR,URINE YELLOW (YELLOW); KETONES,URINE NEGATIVE (NEGATIVE); LEUKOCYTE ESTERASE ,URINE 2+ (NEGATIVE); NITRITE, URINE NEGATIVE (NEGATIVE); PROTEIN,URINE TRACE mg/dl (NEGATIVE); UGLUCOSE NEGATIVE (NEGATIVE); UROBILINOGEN,URINE 0.2 EU/dL (0.2)
[2017-07-25 16:52] LABS: URINE TOTAL PROTEIN 46.3 mg/dL (0-11.9)
[2017-07-25 16:57] LABS: BACTERIA,URINE 4+ /HPF (None Seen); SQUAMOUS EPITHELIAL CELL,UR 0-2 /HPF (None Seen)
[2017-07-25] MEDS: ZIPRASIDONE 20 MG CAPSULE PO SCH (17:19)
[2017-07-25] MEDS: DULOXETINE HCL 30 MG CAPSULE.DR PO SCH (17:21)
[2017-07-25] MEDS: PHENYTOIN EXTENDED RELEASE 100 MG CAPSULE PO SCH (17:21)
--- NOTE | 2017-07-25 17:21 | NUR ---
RN NOTES PATIENT DISCONTINUED FROM TELE-MONITORING, NO SIGNS OF C/O CHEST PAIN NOTED. WILL CONTINUE TO MONITOR.
[2017-07-25] MEDS: BLOOD SUGAR DIAGNOSTIC 1 EACH STRIP IN SCH ×2 (17:23→21:20)
[2017-07-25] MEDS: ATORVASTATIN 40 MG TABLET PO SCH (17:24)
[2017-07-25 18:03] LABS: EOSINOPHIL,URINE Rare
--- NOTE | 2017-07-25 19:08 | NUR ---
MS/RN CLOSING NOTES PT ASLEEP IN BED AT THIS TIME, AROUSES EASILY. A/O X1, MUMBLES/MOUTH WORDS BUT HARD TO UNDERSTAND. SHE RESPONDS TO SIMPLE COMMANDS. MAINTAINED ON 02 VIA N/C AT 2LPM, NO SOB NOTED. IV ACCESS ON RIGHT HAND INTACT AND PATENT W/ IVF OF NS RUNNING AT 75ML/HR, NO SIGNS OF REDNESS OR INFILTRATION NOTED AT SITE. DEAL IN PLACED WITH OUTPUT OF 1,500ML EMPTIED AT 1800. DEAL CARE DONE. KEPT BED LOW AND LOCKED WITH SIDE-RAILS UP X3, CALL LIGHT WITHIN REACH. ALL SAFETY MEASURES MAINTAINED. ALL NEEDS AND CARE PROVIDED WELL. ENDORSED TO MEDICAL DEVICE ENGINEER NURSE FOR CRISTAL.
--- NOTE | 2017-07-25 19:30 | NUR ---
RN NOTES RECEIVED PATIENT IN BED WITH EYES CLOSED; OPENS EYES SPONTANEOUSLY; RESPONSIVE TO TOUCH; MUMBLES WORDS. NO ACUTE DISTRESS NOTED. NO SIGNS OF PAIN AND HYPER/HYPOGLYCEMIA NOTED. IV SITE PATENT, INTACT; IVF INFUSING ORDERED. ON LOW BED WITH BILATERAL UPPER SIDE RAILS UP. CALL LIGHT WITHIN EASY REACH. WILL CONTINUE TO MONITOR.
[2017-07-25 20:00] VITALS: BP 102/65
[2017-07-25] MEDS: TRAZODONE 50 MG TABLET PO SCH (21:20)
[2017-07-26] MEDS: IV NS 0.9% 1,000 ML IV PRN ×2 (05:39→23:38)
[2017-07-26] MEDS: BLOOD SUGAR DIAGNOSTIC 1 EACH STRIP IN SCH ×4 (06:39→22:19)
--- NOTE | 2017-07-26 06:57 | NUR ---
RN NOTES PATIENT ASLEEP, EASILY AROUSABLE. RESPIRATIONS EVEN. NO SIGNS OF PAIN NOTED. DUE MEDS GIVEN WITH NO ASE NOTED. NEEDS ATTENDED. KEPT CLEAN AND DRY. SAFETY PRECAUTIONS AND COMFORT MEASURES IN PLACE. WILL GIVE REPORT TO DAY SHIFT FOR CONTINUITY OF CARE.
--- NOTE | 2017-07-26 07:10 | NUR ---
RN NOTES PT IS IN BED, SLEEPING COMFORTABLY. PT ON RA, RESPIRATIONS ARE EVEN AND UNLABORED. IV ON LEFT HAND INTACT AND PATENT, RUNNING NS @ 75 ML/HR. SAFETY MEASURES ARE IN PLACE, CALL LIGHT IS IN REACH. WILL CONTINUE TO MONITOR.
[2017-07-26 07:22] LABS: APPEARANCE,URINE CLEAR (CLEAR); BILIRUBIN,URINE NEGATIVE (NEGATIVE); BLOOD, URINE 1+ Ery/uL (NEGATIVE); COLOR,URINE YELLOW (YELLOW); KETONES,URINE TRACE (NEGATIVE); LEUKOCYTE ESTERASE ,URINE 1+ (NEGATIVE); NITRITE, URINE NEGATIVE (NEGATIVE); PH,URINE 5.5 (5.0-8.0); PROTEIN,URINE NEGATIVE (NEGATIVE); UGLUCOSE NEGATIVE (NEGATIVE); UROBILINOGEN,URINE 0.2 EU/dL (0.2)
[2017-07-26 07:32] LABS: BASOPHILS % (AUTO) 0.1 % (0.0-2.0); EOSINOPHILS # (AUTO) 0.1 /CMM (0.0-0.7); EOSINOPHILS % (AUTO) 0.9 % (0.0-6.0); HEMATOCRIT 30 % (33-45); HEMOGLOBIN 10.2 g/dL (11.5-14.8); LYMPHOCYTES # (AUTO) 1.5 /CMM (0.8-4.8); LYMPHOCYTES % (AUTO) 13.3 % (20.0-44.0); MEAN CORPUSCULAR HEMOGLOBIN 31 PG (26.0-33.0); MEAN CORPUSCULAR HGB CONC 34 g/dl (31.0-36.0); MEAN CORPUSCULAR VOLUME 92 fL (82-100); MONOCYTES # (AUTO) 0.6 /CMM (0.1-1.30); MONOCYTES % (AUTO) 5.2 % (2.0-12.0); NEUTROPHILS # (AUTO) 9.3 /CMM (1.8-8.9); NEUTROPHILS % (AUTO) 80.5 % (43.0-81.0); PLATELET COUNT (AUTO) 161 /CMM (150-450); RDW COEFFICIENT OF VARIATION 12.7 (11.5-15.0); RED BLOOD CELL COUNT(AUTO) 3.26 MIL/uL (4.0-5.2); WHITE BLOOD COUNT (AUTO) 11.6 K/uL (4.3-11.0)
[2017-07-26 07:33] LABS: BACTERIA,URINE Rare /HPF (None Seen); SQUAMOUS EPITHELIAL CELL,UR Rare /HPF (None Seen)
[2017-07-26 07:50] LABS: ALBUMIN 2.9 g/dL (3.4-5.0); BILIRUBIN,TOTAL 0.4 mg/dL (0.2-1.0); CALCIUM, SERUM 8.5 mg/dL (8.5-10.1); CREATININE 2.2 mg/dL (0.6-1.3); MAGNESIUM 1.3 mg/dL (1.8-2.4); PHOSPHORUS 4.7 mg/dL (2.5-4.9); POTASSIUM 5.1 mmol/L (3.5-5.1); TOTAL PROTEIN, SERUM 6.7 g/dL (6.4-8.2)
[2017-07-26 08:00] VITALS: BP 115/57
[2017-07-26 08:16] LABS: EOSINOPHIL,URINE Rare
[2017-07-26 08:16] LABS: CREATINE KINASE MB 1.6 ng/mL (0-3.6)
[2017-07-26] MEDS: ACETAMINOPHEN 325 MG TABLET PO PRN (08:37)
[2017-07-26] MEDS: VALACYCLOVIR HCL 500 MG TABLET PO SCH (08:40)
[2017-07-26] MEDS: FENOFIBRATE NANOCRYS (145 MG) 145 MG TABLET PO SCH (08:41)
[2017-07-26] MEDS: GABAPENTIN 400 MG CAPSULE PO SCH ×3 (08:42→17:12)
[2017-07-26] MEDS: METOPROLOL SUCCINATE 25 MG TAB.SR.24H PO SCH (08:42)
[2017-07-26] MEDS: MORPHINE SULFATE SR 30 MG TABLET.SA PO SCH ×3 (08:43→17:12)
[2017-07-26] MEDS: ZIPRASIDONE 20 MG CAPSULE PO SCH ×2 (08:44→17:12)
[2017-07-26] MEDS: PHENYTOIN EXTENDED RELEASE 100 MG CAPSULE PO SCH ×2 (08:45→17:12)
[2017-07-26] MEDS: DULOXETINE HCL 30 MG CAPSULE.DR PO SCH ×2 (08:46→17:12)
[2017-07-26] MEDS: DOXAZOSIN MESYLATE (1 MG) 1 MG TABLET PO SCH (08:47)
[2017-07-26] MEDS: Magnesium 1GM/D5W 100ML PREMIX 100 ML IV SCH ×2 (10:11→11:17)
[2017-07-26] MEDS: INSULIN REGULAR, HUMAN 100 UNIT/ML 3 ML VIAL SQ PRN ×2 (11:48→17:21)
--- NOTE | 2017-07-26 12:09 | NUR ---
PT IS NOT IN ANY PAIN, SLEEPING WITH DIFFICULTY AROUSING PATIENT. NO NEED FOR PAIN MEDICATION.
[2017-07-26] MEDS ORDERED: Magnesium 1GM/D5W 100ML PREMIX 100 ML IV SCH ×2 (12:30)
[2017-07-26] MEDS: CEFTRIAXONE 1 G in IV D5W 50 ML IV SCH (13:30)
[2017-07-26 16:00] VITALS: BP 106/56
[2017-07-26] MEDS: ATORVASTATIN 40 MG TABLET PO SCH (17:12)
--- NOTE | 2017-07-26 18:40 | NUR ---
RN NOTES PT IS IN BED, SLEEPING COMFORTABLY. PT ON 2L O2, VIA NASAL CANNULA, RESPIRATIONS ARE EVEN AND UNLABORED. IV ON RIGHT HAND INTACT AND PATENT, RUNNING NS @75 ML/HR. ALL MEDS WERE GIVEN ORDERED. ALL PT NEEDS WERE MET. SKIN CARE WAS PROVIDED. SAFETY MEASURES ARE IN PLACE, CALL LIGHT IS IN REACH. WILL ENDORSE TO SIGN BUILDER RN FOR CONTINUITY OF CARE.
--- NOTE | 2017-07-26 19:25 | NUR ---
MS/RN OPENING NOTES PT ASLEEP, AROUSABLE TO FIRM TOUCH. ON 2LPM O2 VIA NC, BREATHING EVEN AND UNLABORED. NO S/S OF SOB OR PAIN. DEAL IN PLACE DRAINING WELL. IV TO RIGHT HAND PATENT AND INTACT RUNNING IVF ORDERED. +3 PITTING EDEMA NOTED TO LEFT HAND. BED IN LOW/LOCKED POSITION, CALL LIGHT IN REACH. SIDE RAILS UPX2. BED ALARM ON FOR SAFETY. WILL CONTINUE TO MONITOR
[2017-07-26 20:00] VITALS: BP 120/67
[2017-07-26] MEDS: TRAZODONE 50 MG TABLET PO SCH (22:22)
[2017-07-27] MEDS: ACETAMINOPHEN 325 MG TABLET PO PRN (04:24)
--- NOTE | 2017-07-27 07:00 | NUR ---
MS/RN CLOSING NOTES PT AWAKE, HOB ELEVATED. ON 2LPM O2 VIA NC. BREATHING EVEN AND UNLABORED. NO S/S OF SOB NOTED. IV TO R HAND PATENT AND INTACT. TURNED/REPOSITIONED Q2H, HEELS OFFLOADED. MADE PT COMFORTABLE DURING SHIFT. DEAL IN PLACE AND DRAINING WELL. ALL NEEDS MET. BED IN LOW/LOCKED POSITION, CALL LIGHT IN REACH. SIDE RAILS UPX2. ENDORSED TO AM SHIFT CRISTAL.
[2017-07-27] MEDS: BLOOD SUGAR DIAGNOSTIC 1 EACH STRIP IN SCH ×4 (07:04→21:34)
[2017-07-27] MEDS: INSULIN REGULAR, HUMAN 100 UNIT/ML 3 ML VIAL SQ PRN ×4 (07:09→21:41)
[2017-07-27 07:11] LABS: BASOPHILS % (AUTO) 0.4 % (0.0-2.0); EOSINOPHILS # (AUTO) 0.1 /CMM (0.0-0.7); EOSINOPHILS % (AUTO) 1.4 % (0.0-6.0); HEMATOCRIT 29 % (33-45); HEMOGLOBIN 9.9 g/dL (11.5-14.8); LYMPHOCYTES # (AUTO) 1.1 /CMM (0.8-4.8); LYMPHOCYTES % (AUTO) 13.3 % (20.0-44.0); MEAN CORPUSCULAR HEMOGLOBIN 31 PG (26.0-33.0); MEAN CORPUSCULAR HGB CONC 34 g/dl (31.0-36.0); MEAN CORPUSCULAR VOLUME 92 fL (82-100); MONOCYTES # (AUTO) 0.5 /CMM (0.1-1.30); MONOCYTES % (AUTO) 5.7 % (2.0-12.0); NEUTROPHILS # (AUTO) 6.6 /CMM (1.8-8.9); NEUTROPHILS % (AUTO) 79.2 % (43.0-81.0); PLATELET COUNT (AUTO) 140 /CMM (150-450); RDW COEFFICIENT OF VARIATION 12.7 (11.5-15.0); RED BLOOD CELL COUNT(AUTO) 3.19 MIL/uL (4.0-5.2); WHITE BLOOD COUNT (AUTO) 8.4 K/uL (4.3-11.0)
--- NOTE | 2017-07-27 07:15 | NUR ---
RN NOTES PT IS SITTING UP IN BED, AWAKE AND ALERT. PT ON RA, RESPIRATIONS ARE EVEN AND UNLABORED. IV ON R HAND INTACT AND PATENT, RUNNING NS @ 75ML/HR. DEAL IS IN PLACE, DRAINING. SAFETY MEASURES ARE IN PLACE, CALL LIGHT IS IN REACH. WILL CONTINUE TO MONITOR.
[2017-07-27 07:35] LABS: ALBUMIN 2.7 g/dL (3.4-5.0); BILIRUBIN,TOTAL 0.3 mg/dL (0.2-1.0); CALCIUM, SERUM 8.9 mg/dL (8.5-10.1); CREATININE 1.4 mg/dL (0.6-1.3); MAGNESIUM 1.5 mg/dL (1.8-2.4); PHOSPHORUS 2.9 mg/dL (2.5-4.9); POTASSIUM 4.9 mmol/L (3.5-5.1); TOTAL PROTEIN, SERUM 6.4 g/dL (6.4-8.2)
[2017-07-27 08:00] VITALS: BP 141/76
[2017-07-27] MEDS: MORPHINE SULFATE SR 30 MG TABLET.SA PO SCH ×2 (08:04→16:35)
[2017-07-27] MEDS: GABAPENTIN 400 MG CAPSULE PO SCH ×3 (08:04→16:35)
[2017-07-27] MEDS: PHENYTOIN EXTENDED RELEASE 100 MG CAPSULE PO SCH ×2 (08:07→16:35)
[2017-07-27] MEDS: ZIPRASIDONE 20 MG CAPSULE PO SCH ×2 (08:07→16:36)
[2017-07-27] MEDS: DOXAZOSIN MESYLATE (1 MG) 1 MG TABLET PO SCH (08:07)
[2017-07-27] MEDS: VALACYCLOVIR HCL 500 MG TABLET PO SCH (08:08)
[2017-07-27] MEDS: DULOXETINE HCL 30 MG CAPSULE.DR PO SCH ×2 (08:08→16:36)
[2017-07-27] MEDS: METOPROLOL SUCCINATE 25 MG TAB.SR.24H PO SCH (08:08)
[2017-07-27] MEDS: FENOFIBRATE NANOCRYS (145 MG) 145 MG TABLET PO SCH (08:08)
[2017-07-27] MEDS ORDERED: Magnesium 1GM/D5W 100ML PREMIX 100 ML IV SCH (09:00)
[2017-07-27] MEDS: CEFTRIAXONE 1 G in IV D5W 50 ML IV SCH (11:36)
[2017-07-27] MEDS: FUROSEMIDE 20 MG TABLET PO SCH (14:11)
[2017-07-27 16:00] VITALS: BP 139/75
[2017-07-27] MEDS: RENAL NOVASOURCE (8OZ) 1 EA BOX PO SCH (17:00)
[2017-07-27] MEDS: ATORVASTATIN 40 MG TABLET PO SCH (17:30)
--- NOTE | 2017-07-27 18:23 | NUR ---
RN NOTES PT IS SITTING UP IN BED, RESTING COMFORTABLY. PT IS ALERT AND ORIENTED. ON RA, RESPIRATIONS ARE EVEN AND UNLABORED. IV ON R HAND INTACT AND PATENT, SL. DEAL CATHETER IS IN PLACE AND DRAINING, OUTPUT 1600ML. ALL PT NEEDS WERE MET. ALL MEDS WERE GIVEN ORDERED. WILL ENDORSE TO GENERAL ASSEMBLER INSTALLER RN FOR CONTINUITY OF CARE.
--- NOTE | 2017-07-27 19:30 | NUR ---
MS RN NOTES RECEIVED ON BED SLEEPING,AROUSABLE TO VERBAL STIMULI,BREATHING NON LABORED.SALINE LOCK RIGHT HAND INTACT AND PATENT.WITH DEAL CATH IN PLACE DRAINING YELLOWISH OUTPUT.NOTES SKIN DISCOLORATION ON LEFT LOWER LEG.CALL LIGHT IN REACH,NEEDS ANTICIPATED.
[2017-07-27 20:00] VITALS: BP 139/66
[2017-07-27] MEDS: TRAZODONE 50 MG TABLET PO SCH (21:27)
--- NOTE | 2017-07-27 21:30 | NUR ---
MS RN NOTES ACCU-CHECK BLOOD SUGAR CHECK 157,COVERED WITH HUMULIN R 2 UNITS PER SLIDING SCALE.
--- NOTE | 2017-07-28 02:00 | NUR ---
MS RN NOTES AWAKE,WATCHING TV PROGRAM,DENIES PAIN.
[2017-07-28] MEDS: oxyCODONE/APAP (5/325 MG) 1 UDTAB TABLET PO PRN ×2 (03:54→15:23)
--- NOTE | 2017-07-28 03:54 | NUR ---
MS RN NOTES PAIN MANAGEMENT C/O PAIN VIA NECK AND LEGS,MEDICATED WITH PERCOCET 1 TAB PO ORDERED.
[2017-07-28 05:13] LABS: *SPE A/G RATIO 1.1 (0.7-1.7); *SPE ALBUMIN 3.2 g/dL (2.9-4.4); *SPE ALPHA-1-GLOBULIN 0.3 g/dL (0.0-0.4); *SPE ALPHA-2-GLOBULIN 0.9 g/dL (0.4-1.0); *SPE BETA GLOBULIN 0.9 g/dL (0.7-1.3); *SPE M-SPIKE Not Observed g/dL (Not Observed); *SPE PROTEIN TOTAL 6.2 g/dL (6.0-8.5)
--- NOTE | 2017-07-28 05:30 | NUR ---
MS RN NOTES ACCU-CHECK BLOOD SUGAR CHECK 129,NO INSULIN COVERAGE.
--- NOTE | 2017-07-28 05:30 | NUR ---
MS RN NOTES ACCU-CHECK BLOOD SUGAR CHECK 170,COVERED WITH HUMULIN R 3 UNITS PER SLIDING SCALE.
[2017-07-28] MEDS: BLOOD SUGAR DIAGNOSTIC 1 EACH STRIP IN SCH ×4 (05:43→21:54)
[2017-07-28] MEDS: INSULIN REGULAR, HUMAN 100 UNIT/ML 3 ML VIAL SQ PRN ×2 (05:46→21:54)
--- NOTE | 2017-07-28 06:41 | NUR ---
MS RN NOTES FAIRLY RESTED,A/O X2-3 THIS TIME,MORE ALERT,ABLE TO VERBALIZED NEEDS.IN NO ACUTE DISTRESS.WILL ENDORSE TO DAY NURSE FOR CRISTAL.
--- NOTE | 2017-07-28 07:30 | NUR ---
RECEIVED PT. ALERT AND ORIENTED X3.PLEASANT.COOPERATIVE.VS STABLE.
[2017-07-28 08:00] VITALS: BP 166/78
[2017-07-28] MEDS: MORPHINE SULFATE SR 30 MG TABLET.SA PO SCH ×2 (08:07→18:10)
[2017-07-28] MEDS: GABAPENTIN 400 MG CAPSULE PO SCH ×3 (08:08→17:00)
[2017-07-28 08:09] LABS: BASOPHILS % (AUTO) 0.4 % (0.0-2.0); EOSINOPHILS # (AUTO) 0.1 /CMM (0.0-0.7); EOSINOPHILS % (AUTO) 1.6 % (0.0-6.0); HEMATOCRIT 31 % (33-45); HEMOGLOBIN 10.4 g/dL (11.5-14.8); LYMPHOCYTES # (AUTO) 1.3 /CMM (0.8-4.8); LYMPHOCYTES % (AUTO) 17.5 % (20.0-44.0); MEAN CORPUSCULAR HEMOGLOBIN 31 PG (26.0-33.0); MEAN CORPUSCULAR HGB CONC 33 g/dl (31.0-36.0); MEAN CORPUSCULAR VOLUME 92 fL (82-100); MONOCYTES # (AUTO) 0.4 /CMM (0.1-1.30); MONOCYTES % (AUTO) 5.6 % (2.0-12.0); NEUTROPHILS # (AUTO) 5.4 /CMM (1.8-8.9); NEUTROPHILS % (AUTO) 74.9 % (43.0-81.0); PLATELET COUNT (AUTO) 158 /CMM (150-450); RDW COEFFICIENT OF VARIATION 12.4 (11.5-15.0); WHITE BLOOD COUNT (AUTO) 7.3 K/uL (4.3-11.0)
[2017-07-28 08:29] LABS: CALCIUM, SERUM 9.2 mg/dL (8.5-10.1); CREATININE 1.1 mg/dL (0.6-1.3); PHOSPHORUS 2.8 mg/dL (2.5-4.9)
[2017-07-28 08:37] LABS: MAGNESIUM 1.2 mg/dL (1.8-2.4)
[2017-07-28] MEDS: DULOXETINE HCL 30 MG CAPSULE.DR PO SCH ×2 (10:12→17:00)
[2017-07-28] MEDS: DOXAZOSIN MESYLATE (1 MG) 1 MG TABLET PO SCH (10:13)
[2017-07-28] MEDS: FUROSEMIDE 20 MG TABLET PO SCH (10:14)
[2017-07-28] MEDS: ZIPRASIDONE 20 MG CAPSULE PO SCH ×2 (10:14→18:10)
[2017-07-28] MEDS: VALACYCLOVIR HCL 500 MG TABLET PO SCH (10:14)
[2017-07-28] MEDS: PHENYTOIN EXTENDED RELEASE 100 MG CAPSULE PO SCH ×2 (10:14→18:10)
[2017-07-28] MEDS: METOPROLOL SUCCINATE 25 MG TAB.SR.24H PO SCH (10:15)
[2017-07-28] MEDS: FENOFIBRATE NANOCRYS (145 MG) 145 MG TABLET PO SCH (10:15)
--- NOTE | 2017-07-28 10:55 | NUR ---
F/CATH REMOVED ORDERED.
[2017-07-28] MEDS: RENAL NOVASOURCE (8OZ) 1 EA BOX PO SCH ×3 (11:14→17:00)
[2017-07-28] MEDS: Magnesium 1GM/D5W 100ML PREMIX 100 ML IV SCH ×6 (11:28→18:08)
[2017-07-28] MEDS ORDERED: POLYETHYLENE GLYCOL 3350 17 GM POWD.PACK PO PRN (11:30)
[2017-07-28] MEDS ORDERED: BISACODYL (5 MG) 5 MG TABLET.DR PO PRN (11:30)
--- NOTE | 2017-07-28 12:30 | NUR ---
VOMITED LRG. AMT. AFTER DRINKING 2 GLASSES OF PRUNE JUICE.BROWN CLEAR EMESIS.
--- NOTE | 2017-07-28 12:49 | NUR ---
PT. VOIDED FIRST TIME AFTER DEAL REMOVED.
[2017-07-28] MEDS: ONDANSETRON HCL/PF 4 MG/2 ML VIAL IVP PRN ×2 (12:51→19:41)
[2017-07-28 13:10] LABS: PTH, INTACT 81 pg/mL (15-65)
[2017-07-28] MEDS: BISACODYL SUPP (10 MG) 10 MG/SUPP.RECT SUPP.RECT RC PRN ×2 (13:37→13:40)
--- NOTE | 2017-07-28 13:37 | NUR ---
GIVEN DULCOLAX SUPP. FOR SEVERE CONSTIPATION,SPOKE AT LENGTH WITH DR. BETANCOURT,PT. STATES A WHILE SINCE SHE HAS HAD BM.SEEMS TO BE A LITTLE IMPACTED,BUT TOO NAUSEATED FOR OTHER LAXATIVE AT THIS TIME.
--- NOTE | 2017-07-28 15:23 | NUR ---
GIVEN PERCOCET FOR PAIN IN ADDITION TO ROUTINE MS CONTIN.
[2017-07-28 16:00] VITALS: BP 175/98
--- NOTE | 2017-07-28 17:00 | NUR ---
MG REPLACEMENT IV DUE TO LOW BLOOD MG.
[2017-07-28] MEDS: ATORVASTATIN 40 MG TABLET PO SCH (17:42)
--- NOTE | 2017-07-28 17:50 | NUR ---
MED X2 FOR NAUSEA WITH ZOFRAN.
--- NOTE | 2017-07-28 18:00 | NUR ---
SMALL EMESIS AGAIN.NOT EATING DINNER OR LUNCH SO GLUCOSE NOT COVERED.
[2017-07-28] MEDS: hydrALAZINE HCL 25 MG TABLET PO PRN (18:09)
--- NOTE | 2017-07-28 18:09 | NUR ---
GIVEN HYDRALAZINE FOR ELEVATED BP.
--- NOTE | 2017-07-28 19:39 | NUR ---
rn initial notes: received report from kay mccann, pt in bed, awake, a/o x3 on room air, respiration even and unlabored, pt had episode of vomiting per report, pt has right hand iv access patent and flushing well, infusing with ns at tko. per report pt unable to eat dinner due to vomiting, safety precautions for fall initiated call light in reach, will continue to monitor
[2017-07-28] MEDS: CEFTRIAXONE 1 G in IV D5W 50 ML IV SCH (19:41)
--- NOTE | 2017-07-28 19:41 | NUR ---
PRN ZOFRAN: PT VOMITED TWICE, C/O NAUSEA, PRN ZOFRAN 4MG IVP ADMINISTERED TO THE PT AT THIS TIME, WILL CONTINUE TO MONITOR AND REASSESS
[2017-07-28 19:50] VITALS: BP 148/82
--- NOTE | 2017-07-28 19:50 | NUR ---
RN NOTES: PT STARTED VOMITING AGAIN WITH COFFEE GROUND EMESIS, A LOT, THE ENTIRE PT'S GOWN AND BED GOT WET, VS TAKEN AND RECORDED, PT AWAKE, CONSCIOUS, A/O X2, PLACED ON 2L VIA NC, BLOOD SUGAR CHECKED AND REVEAL 278, PT UNABLE TO EAT DINNER DUE TO VOMITING, PT'S GETTING IVF NS AT 20ML/HR, INFORMED RUBBER ENGRAVER PASTORA, STATED TO RECHECK AGAIN VS AFTER 30MINS AND TO CHECK IF STILL VOMITING, PLACED ON TELE MONITOR SINUS TACH HR 102, PT STATED SHE FELT A LOT BETTER AFTER VOMITING
[2017-07-28 20:11] VITALS: BP 142/74
[2017-07-28 20:34] VITALS: BP 148/87
--- NOTE | 2017-07-28 20:50 | NUR ---
rn notes: pt sleeping, appears comfortable, no facial grimace noted, on 2l via nc, no vomiting at this time, pt is arousable to tactile stimuli, a/o x3, will continue to monitor
--- NOTE | 2017-07-28 21:04 | NUR ---
rn notes: talked to raul public health advisor site promotion agent, relayed about pt's coffe ground emesis, per public health advisor to give reglan 10mg ivp q6hr prn for n/v, also do stat h/h now, contacted lab to draw blood
[2017-07-28 21:24] VITALS: BP 142/82
[2017-07-28 21:29] LABS: HEMOGLOBIN 11.5 g/dL (11.5-14.8)
--- NOTE | 2017-07-28 21:55 | NUR ---
ACCU CHECK: BLOOD SUGAR CHECKED AND REVEAL 206, NO INSULIN GIVEN AT THIS TIME PT UNABLE TO EAT DUE TO VOMITING, [employer] AWARE, PT GETTING IVF NS AT 20ML/HR, WILL CONTINUE MONITORING PT'S BLOOD SUGAR
[2017-07-28] MEDS: TRAZODONE 50 MG TABLET PO SCH (22:00)
[2017-07-28] MEDS: METOCLOPRAMIDE HCL 10 MG/2 ML VIAL IV PRN (22:11)
--- NOTE | 2017-07-28 23:00 | NUR ---
non admin of desyrel: pt had episode of vomiting, kept npo until able to tolerate oral intake, also pt currently sleeping at this time, will continue to monitor
[2017-07-29] MEDS: IV NS 0.9% 1,000 ML IV PRN ×2 (00:04→15:51)
--- NOTE | 2017-07-29 00:34 | NUR ---
RN NOTES: PT AWAKE NOW, A/O X3, STATED SHE'S NOT FEELING NAUSEATED, DECIDED TO DO BED BATH PT SMELLS LIKE VOMITUS FROM EARLIER EPISODE OF VOMITING,
[2017-07-29] MEDS: ACETAMINOPHEN 325 MG TABLET PO PRN (06:00)
--- NOTE | 2017-07-29 06:01 | NUR ---
PRN TYLENOL: PT C/O HEAD ACHE 12/26 PRN TYLENOL 650MG TAB PO ADMINISTERED TO THE PT AT THIS TIME, WILL CONTINUE TO MONITOR AND REASSESS
[2017-07-29] MEDS: BLOOD SUGAR DIAGNOSTIC 1 EACH STRIP IN SCH ×4 (06:09→22:00)
[2017-07-29] MEDS: INSULIN REGULAR, HUMAN 100 UNIT/ML 3 ML VIAL SQ PRN (06:11)
--- NOTE | 2017-07-29 06:13 | NUR ---
ACCU CHECK: BLOOD SUGAR CHECK AND REVEAL 209, 4UNITS OF INSULIN GIVEN PER SLIDING SCALE, PT INSISTED TO GET THE INSULIN NOW, SHE STATED SHE DIDNT RECEIVED INSULIN LAST NIGHT BECAUSE SHE'S BEEN VOMITING AND NOW SHE DOESNT HAVE N/V SINCE 0200AM, SHE STATED SHE NEEDS HER INSULIN TO LOWER HER BLOOD SUGAR, PT ABLE TO TOLERATE PO INTAKE, ATE CRACKERS AND DRINK FLUIDS, SO FAR NO N/V NOTED, WILL CONTINUE MONITORING PT, EDUCATION PROVIDED TO THE PT
--- NOTE | 2017-07-29 06:53 | NUR ---
RN CLOSING NOTES: PT IN BED, AWAKE, REMAINS A/O X3, ON 2L VIA NC, RESPIRATION EVEN AND UNLABORED, DENIES ANY PAIN OR DISCOMFORT AT THIS TIME, RIGHT HAND IV ACCESS REMAINS PATENT AND FLUSHING WELL, INFUSING WITH NS AT 75ML/HR. NO NAUSEA AND VOMITING NOTED FROM 0000 TILL NOW, PT STARTED ON ICE CHIPS, THEN WATER ,THEN ATE CRACKERS, TOLERATED WELL, VS REMAINS STABLE, NEEDS ATTENDED. SAFETY PRECAUTIONS FOR FALL REMAINS ENGAGED, CALL LIGHT IN REACH,WILL ENDORSE TO DAY RN FOR CRISTAL.
--- NOTE | 2017-07-29 07:15 | NUR ---
RN INITIAL NOTES REPORT RECEIVED AT THE BEDSIDE. PATIENT IS RESTING COMFORTABLY IN BED. NO SOB OR DISTRESS NOTED. PATIENT DENIES PAIN, BUT IS COMPLAINING OF NAUSEA AND VOMITING. LAKEISHA AT BEDSIDE IN REPORT AND WILL ADMIN ZOFRAN. BED IN A LOW POSITION, CALL LIGHT WITHIN PATIENT REACH. WILL CONTINUE TO MONITOR.
[2017-07-29] MEDS: ONDANSETRON HCL/PF 4 MG/2 ML VIAL IVP PRN (07:18)
--- NOTE | 2017-07-29 07:18 | NUR ---
PRN ZOFRAN: PT C/O NAUSEA AND STATED THAT SHE FEEL LIKE THROWING UP, PRN ZOFRAN 4MG IVP ADMINISTERED TO THE PT AT THIS TIME, WILL CONTINUE TO MONITOR AND REASSESS
[2017-07-29] MEDS: METOCLOPRAMIDE HCL 10 MG/2 ML VIAL IV PRN ×2 (07:45→17:22)
--- NOTE | 2017-07-29 07:50 | NUR ---
RN NOTES GAVE DOSE OF REGLAN PATIENT EXPERIENCED NO RELIEF FROM ZOFRAN. WILL MONITOR.
[2017-07-29 08:00] VITALS: BP 167/89
[2017-07-29 08:29] LABS: CALCIUM, SERUM 9.4 mg/dL (8.5-10.1); CREATININE 1.1 mg/dL (0.6-1.3); POTASSIUM 3.5 mmol/L (3.5-5.1)
[2017-07-29] MEDS: FENOFIBRATE NANOCRYS (145 MG) 145 MG TABLET PO SCH (09:00)
[2017-07-29] MEDS: MORPHINE SULFATE SR 30 MG TABLET.SA PO SCH (09:00)
[2017-07-29] MEDS: PHENYTOIN EXTENDED RELEASE 100 MG CAPSULE PO SCH (09:00)
[2017-07-29] MEDS: VALACYCLOVIR HCL 500 MG TABLET PO SCH (09:00)
[2017-07-29] MEDS: FUROSEMIDE 20 MG TABLET PO SCH (09:00)
[2017-07-29] MEDS: ZIPRASIDONE 20 MG CAPSULE PO SCH ×2 (09:00→17:00)
[2017-07-29] MEDS: RENAL NOVASOURCE (8OZ) 1 EA BOX PO SCH ×3 (09:00→17:00)
[2017-07-29] MEDS: GABAPENTIN 400 MG CAPSULE PO SCH ×3 (09:00→17:00)
[2017-07-29] MEDS: DOXAZOSIN MESYLATE (1 MG) 1 MG TABLET PO SCH (09:00)
[2017-07-29] MEDS: DULOXETINE HCL 30 MG CAPSULE.DR PO SCH ×2 (09:00→17:00)
[2017-07-29] MEDS: METOPROLOL SUCCINATE 25 MG TAB.SR.24H PO SCH (09:00)
[2017-07-29] MEDS ORDERED: ONDANSETRON HCL/PF 4 MG/2 ML VIAL IV STA (09:02)
[2017-07-29] MEDS ORDERED: BISACODYL SUPP (10 MG) 10 MG/SUPP.RECT SUPP.RECT RC STA (09:05)
--- NOTE | 2017-07-29 09:27 | NUR ---
RN NOTES CALLED DR BETANCOURT PATIENT IS STILL VOMITING. MD ORDERED ANOTHER ONE TIME ZOFRAN AND A DULCOLAX RECTAL. ALSO CT ABD AND PELVIS. ORDERS CARRIED OUT.
--- NOTE | 2017-07-29 09:35 | NUR ---
RN NOTES PATIENT VOMITING LARGE AMOUNTS OF COFFEE GROUND EMISIS WITH BLOOD. CALLED DR BETANCOURT. MD ORDERED A PROTONIX DRIP. INCREASE IN FLUIDS TO 175/HR AND PLACEMENT OF AN NG TUBE. WILL CARRY OUT ORDERS.
[2017-07-29] MEDS: PANTOPRAZOLE 80 MG in IV NS 0.9% 500 ML IV PRN ×2 (10:49→23:55)
--- NOTE | 2017-07-29 11:38 | NUR ---
RN NOTES NG TUBE PLACED AND PLACED TO LOW INTERMITTENT SUCTION. 150MLS OF COFFEE AND STREAKED BLOOD GASTRIC CONTENTS OUT WITHIN 10 MINS. PROTONIX DRIP STARTED. DULCOLAX SUPOSITORY GIVEN PER ORDER. WAITING FOR PATIENT TO HAVE A BOWEL MOVEMENT.
[2017-07-29] MEDS: CEFTRIAXONE 1 G in IV D5W 50 ML IV SCH (12:28)
[2017-07-29 12:47] LABS: HEMOGLOBIN 11.5 g/dL (11.5-14.8)
[2017-07-29 16:00] VITALS: BP 176/89
[2017-07-29] MEDS: MORPHINE SULFATE INJ 2 MG/ML DISP.SYRIN IV PRN ×3 (16:16→23:40)
[2017-07-29] MEDS ORDERED: LORAZEPAM INJ 2 MG/ML VIAL IV PRN (16:30)
[2017-07-29] MEDS ORDERED: MORPHINE SULFATE INJ 2 MG/ML DISP.SYRIN IV PRN (16:30)
[2017-07-29] MEDS ORDERED: ENALAPRILAT DIHYD. (2.5MG/ML) 1.25 MG/ML VIAL IV PRN (16:30)
[2017-07-29 17:00] VITALS: BP 155/82
--- NOTE | 2017-07-29 17:19 | NUR ---
RN NOTES DR RICHTER STATES TO GIVE PT REGLAN Q6H X3 DOSES. DR BETANCOURT STATES THAT AROUND 7PM, WE MAY REMOVE THE NG TUBE. WILL CARRY OUT ORDERS.
--- NOTE | 2017-07-29 18:36 | NUR ---
RN NOTES NG TUBE REMOVED PER MD ORDER. PATIENT TOLERATED WELL.
--- NOTE | 2017-07-29 19:20 | NUR ---
RN CLOSING NOTES NO SIGNIFICANT CHANGES SINCE LAST NOTE. NO SOB OR DISTRESS NOTED AT THIS TIME. PATIENT REPORTS TOLERABLE PAIN. BED IN A LOW POSITION, CALL LIGHT WITHIN PATIENT REACH. ENDORSED TO JOSELITO FOR CRISTAL.
[2017-07-29 20:00] VITALS: BP 163/82
[2017-07-29] MEDS: PHENYTOIN SODIUM IV 50 MG/ML VIAL IV SCH (21:00)
[2017-07-29 22:00] VITALS: BP 148/77
[2017-07-29] MEDS ORDERED: PANTOPRAZOLE 40 MG VIAL ONE (22:35)
[2017-07-29] MEDS ORDERED: METOCLOPRAMIDE HCL 10 MG/2 ML VIAL IV ONE (23:30)
[2017-07-30] VITALS: BP 145/83
[2017-07-30] MEDS: MORPHINE SULFATE INJ 2 MG/ML DISP.SYRIN IV PRN ×2 (02:10→06:18)
[2017-07-30 04:00] VITALS: BP 149/73
[2017-07-30] MEDS ORDERED: METOCLOPRAMIDE HCL 10 MG/2 ML VIAL IV ONE (05:30)
--- NOTE | 2017-07-30 06:00 | NUR ---
RN NOTES No acute change in condition during shift. No episode of vomiting. With c/o pain on bilateral knees, Morphine given as ordered, monitor effectiveness, as per patient Morphine relieves her pain. Turned and repositioned as scheduled, due meds given as ordered. All needs attended. Patient asked for jello for snack, patient able to tolerate diet, no vomiting noted. Will continue to monitor. Blood sugar checked done, no s/s of hypo/hyperglycemia.
[2017-07-30] MEDS: INSULIN REGULAR, HUMAN 100 UNIT/ML 3 ML VIAL SQ PRN ×3 (06:39→17:49)
[2017-07-30] MEDS: BLOOD SUGAR DIAGNOSTIC 1 EACH STRIP IN SCH ×4 (06:39→23:17)
--- NOTE | 2017-07-30 07:05 | NUR ---
AGENCY SALES DEVELOPMENT ASSOCIATE OPENING NOTES RECEIVED PT FROM NIGHTSHIFT NURSE IN STABLE CONDITION. PT IA A/O 3. NO SOB OR SIGNS OF DISTRESS NOTED. BREATHING IS EVEN AND UNLABORED. PT DENIES ANY PAIN AT THIS TIME. SHE ALSO DENIES ANY NAUSEA OR VOMITING. NO EPISODES OF EMESIS REPORTED BY NIGHTSHIFT NURSE WELL. PT IS SINUS RHYTHM ON THE TELE MONITOR WITH A HR OF 67. IV PRESENT ON RIGHT HAND 22 G. PROTONIX DRIP ALONG WITH NS INFUSION ARE CURRENTLY RUNNING ORDERED. PT IS TOLERATING INFUSION WELL. NO REDNESS OR SIGNS OF DISTRESS NOTED. BED IN LOW LOCKED POSITION, SIDE RAILS UP X2, CALL LIGHT WITHIN REACH. WILL CONTINUE TO MONITOR.
[2017-07-30 08:00] VITALS: BP 153/88
[2017-07-30 08:37] LABS: HEMATOCRIT 28 % (33-45); HEMOGLOBIN 9.8 g/dL (11.5-14.8); MEAN CORPUSCULAR HEMOGLOBIN 32 PG (26.0-33.0); MEAN CORPUSCULAR HGB CONC 35 g/dl (31.0-36.0); MEAN CORPUSCULAR VOLUME 91 fL (82-100); RED BLOOD CELL COUNT(AUTO) 3.07 MIL/uL (4.0-5.2); WHITE BLOOD COUNT (AUTO) 10.1 K/uL (4.3-11.0)
[2017-07-30 08:38] LABS: BASOPHILS % (AUTO) 0.4 % (0.0-2.0); EOSINOPHILS # (AUTO) 0.1 /CMM (0.0-0.7); LYMPHOCYTES # (AUTO) 1.5 /CMM (0.8-4.8); LYMPHOCYTES % (AUTO) 15.2 % (20.0-44.0); MONOCYTES # (AUTO) 0.6 /CMM (0.1-1.30); NEUTROPHILS # (AUTO) 7.8 /CMM (1.8-8.9); NEUTROPHILS % (AUTO) 77.4 % (43.0-81.0); PLATELET COUNT (AUTO) 154 /CMM (150-450); RDW COEFFICIENT OF VARIATION 12.2 (11.5-15.0)
[2017-07-30] MEDS: PANTOPRAZOLE 80 MG in IV NS 0.9% 500 ML IV PRN (08:51)
[2017-07-30] MEDS: IV NS 0.9% 1,000 ML IV PRN ×2 (08:51)
[2017-07-30] MEDS: PHENYTOIN SODIUM IV 50 MG/ML VIAL IV SCH (08:54)
[2017-07-30] MEDS: RENAL NOVASOURCE (8OZ) 1 EA BOX PO SCH ×3 (08:54→17:36)
[2017-07-30] MEDS: VALACYCLOVIR HCL 500 MG TABLET PO SCH (08:56)
[2017-07-30] MEDS: ZIPRASIDONE 20 MG CAPSULE PO SCH ×2 (08:56→17:35)
[2017-07-30] MEDS: METOPROLOL SUCCINATE 25 MG TAB.SR.24H PO SCH (08:56)
[2017-07-30] MEDS: DOXAZOSIN MESYLATE (1 MG) 1 MG TABLET PO SCH (08:57)
[2017-07-30] MEDS: GABAPENTIN 400 MG CAPSULE PO SCH ×3 (08:57→17:35)
[2017-07-30] MEDS: DULOXETINE HCL 30 MG CAPSULE.DR PO SCH ×2 (08:57→17:35)
[2017-07-30 09:26] LABS: CALCIUM, SERUM 8.5 mg/dL (8.5-10.1); CREATININE 0.8 mg/dL (0.6-1.3); PHOSPHORUS 2.5 mg/dL (2.5-4.9); POTASSIUM 2.9 mmol/L (3.5-5.1)
[2017-07-30 09:32] LABS: MAGNESIUM 1.2 mg/dL (1.8-2.4)
--- NOTE | 2017-07-30 10:43 | NUR ---
LEAD SOFTWARE ARCHITECT NOTES PT'S MG IS 1.2 AND K IS 2.9 PHARMACY WAS CALLED IN REGARDS TO REPLACEMENT ORDERS. PER LIO, THE PHARMACY WILL REPLACE ELECTROLYTES. PER LIO, HE WILL ALSO D/C THE PT'S PROTONIX DRIP HE HAS ALREADY TALKED TO DR. GOLDMAN WHO WOULD LIKE THE PT TO FINISH HER CURRENT INFUSION THEN D/C AFTER. WILL AWAIT ORDERS
[2017-07-30] MEDS: Magnesium 1GM/D5W 100ML PREMIX 100 ML IV SCH ×6 (12:11→17:35)
[2017-07-30] MEDS: POTASSIUM CHLORIDE 20 MEQ POWDER PACKET PO SCH ×3 (12:17→14:46)
[2017-07-30] MEDS: CEFTRIAXONE 1 G in IV D5W 50 ML IV SCH (13:38)
[2017-07-30] MEDS: MORPHINE SULFATE SR 30 MG TABLET.SA PO SCH ×2 (15:22→23:17)
[2017-07-30 16:00] VITALS: BP 157/84
[2017-07-30] MEDS: PHENYTOIN EXTENDED RELEASE 100 MG CAPSULE PO SCH (17:35)
[2017-07-30] MEDS: HYDROCODONE/APAP 10/325MG 1 EA TABLET PO PRN (18:40)
--- NOTE | 2017-07-30 19:04 | NUR ---
MS RN CLOSING NOTES PT REMAINS IN STABLE CONDITION. DENIES ANY FURTHER PAIN AT THIS TIME. VITALS STABLE THROUGHOUT SHIFT. NO COMPLAINTS OF NAUSEA OR EPISODES OF VOMITING. ALL NEEDS MET AND ORDERS CARRIED OUT ACCORDINGLY. ALL SAFETY MEASURES IN PLACE. WILL ENDORSE TO NIGHTSHIFT NURSE FOR CRISTAL
--- NOTE | 2017-07-30 19:30 | NUR ---
TELE/RN RECEIVE PATIENT SLEEPING, APPEAR COMFORTABLE, NO DISTRESS NOTED, BREATHING EVEN AND UNLABORED, IVF INFUSING, CALL LIGHT IN REACH. WILL MONITOR.
[2017-07-30 20:00] VITALS: BP 138/75
[2017-07-30] MEDS: ATORVASTATIN 40 MG TABLET PO SCH (23:14)
[2017-07-31] VITALS: BP 164/75
[2017-07-31] MEDS: HYDROCODONE/APAP 10/325MG 1 EA TABLET PO PRN ×3 (01:19→17:46)
[2017-07-31] MEDS: hydrOXYzine PAMOATE 25 MG CAPSULE PO PRN ×2 (03:00→13:01)
--- NOTE | 2017-07-31 03:15 | NUR ---
TELE/RN PER PATIENT SHE FEELS ANXIOUS AND REQUESTED FOR VISTARIL, 25 MG PO WAS GIVEN ORDERED. WILL MONITOR.
[2017-07-31] MEDS ORDERED: IV NS 0.9% 1,000 ML BAG IV SCH (03:30)
[2017-07-31] MEDS ORDERED: IV NS 0.9% 1,000 ML BAG IV PRN (03:30)
[2017-07-31 04:00] VITALS: BP 150/92
--- NOTE | 2017-07-31 04:15 | NUR ---
TELE/RN DOZING INTERMITTENTLY, CALM AND COMFORTABLE, NO SIGNS OF DISTRESS NOTED NOTED. WILL CONTINUE TO MONITOR.
[2017-07-31] MEDS: MORPHINE SULFATE SR 30 MG TABLET.SA PO SCH ×3 (05:52→21:28)
--- NOTE | 2017-07-31 05:56 | NUR ---
TELE/RN ACCU CHECK DONE, BLOOD SUGAR 171, DID NOT COVER, PATIENT IS NPO FOR EGD TODAY.
--- NOTE | 2017-07-31 06:20 | NUR ---
TELE/RN AWAKE, COMFORTABLE, NPO, IVF INFUSING, ALL NEEDS ATTENDED AT THIS TIME. WILL CONTINUE TO MONITOR.
--- NOTE | 2017-07-31 07:13 | NUR ---
SUPERVISOR SHOP OPENING NOTES RECEIVED PT FROM NIGHTSHIFT NURSE IN STABLE CONDITION. PT IS A/O X3. NO SOB OR SIGNS OF DISTRESS NOTED. BREATHING IS EVEN AND UNLABORED. PT DENIES ANY PAIN AND OR N/V AT THIS TIME. PT IS SINUS RHYTHM ON THE TELE MONITOR WITH A HR OF 72. IV PRESENT ON RIGHT FOREARM 22 G INFUSING NS @ 75ML/HR. PT IS TOLERATING INFUSION WELL. NO REDNESS OR SIGNS OF INFILTRATION NOTED. NPO STATUS MAINTAINED SINCE MIDNIGHT FOR SCHEDULED EGD PROCEDURE LATER THIS AFTERNOON. BED IN LOW LOCKED POSITION, SIDE RAILS UP X2, CALL LIGHT WITHIN REACH. WILL CONTINUE TO MONITOR.
[2017-07-31] MEDS: BLOOD SUGAR DIAGNOSTIC 1 EACH STRIP IN SCH ×4 (07:14→22:02)
[2017-07-31 07:27] LABS: BASOPHILS % (AUTO) 0.4 % (0.0-2.0); EOSINOPHILS # (AUTO) 0.4 /CMM (0.0-0.7); EOSINOPHILS % (AUTO) 4.1 % (0.0-6.0); HEMATOCRIT 30 % (33-45); LYMPHOCYTES # (AUTO) 1.9 /CMM (0.8-4.8); LYMPHOCYTES % (AUTO) 21.3 % (20.0-44.0); MEAN CORPUSCULAR HEMOGLOBIN 31 PG (26.0-33.0); MEAN CORPUSCULAR HGB CONC 34 g/dl (31.0-36.0); MEAN CORPUSCULAR VOLUME 91 fL (82-100); MONOCYTES # (AUTO) 0.6 /CMM (0.1-1.30); MONOCYTES % (AUTO) 6.7 % (2.0-12.0); NEUTROPHILS # (AUTO) 5.9 /CMM (1.8-8.9); NEUTROPHILS % (AUTO) 67.5 % (43.0-81.0); PLATELET COUNT (AUTO) 171 /CMM (150-450); RDW COEFFICIENT OF VARIATION 12.6 (11.5-15.0); RED BLOOD CELL COUNT(AUTO) 3.24 MIL/uL (4.0-5.2); WHITE BLOOD COUNT (AUTO) 8.7 K/uL (4.3-11.0)
[2017-07-31] MEDS ORDERED: IV NS 0.9% 1,000 ML IV PRN (07:30)
[2017-07-31 07:57] LABS: CALCIUM, SERUM 8.7 mg/dL (8.5-10.1); CREATININE 0.9 mg/dL (0.6-1.3); POTASSIUM 3.5 mmol/L (3.5-5.1)
[2017-07-31 08:00] VITALS: BP 152/89
[2017-07-31] MEDS: ZIPRASIDONE 20 MG CAPSULE PO SCH ×2 (08:43→17:45)
[2017-07-31] MEDS: GABAPENTIN 400 MG CAPSULE PO SCH ×3 (08:43→17:45)
[2017-07-31] MEDS: PHENYTOIN EXTENDED RELEASE 100 MG CAPSULE PO SCH ×2 (08:43→17:45)
[2017-07-31] MEDS: DULOXETINE HCL 30 MG CAPSULE.DR PO SCH ×2 (08:43→17:46)
[2017-07-31] MEDS: METOPROLOL SUCCINATE 25 MG TAB.SR.24H PO SCH (08:44)
[2017-07-31] MEDS: RENAL NOVASOURCE (8OZ) 1 EA BOX PO SCH ×3 (08:44→17:00)
[2017-07-31] MEDS: DOXAZOSIN MESYLATE (1 MG) 1 MG TABLET PO SCH (08:45)
[2017-07-31] MEDS: VALACYCLOVIR HCL 500 MG TABLET PO SCH (08:45)
[2017-07-31] MEDS: PANTOPRAZOLE 40 MG VIAL IV SCH (08:46)
[2017-07-31] MEDS: CEFTRIAXONE 1 G in IV D5W 50 ML IV SCH (13:02)
[2017-07-31 13:18] VITALS: BP 161/87
--- NOTE | 2017-07-31 15:37 | NUR ---
MANAGER EMERGENCY NOTES PT TAKEN DOWN BY OR STAFF FOR SCHEDULED EGD WITH DR. GOLDMAN
[2017-07-31] MEDS ORDERED: ANESTHESIA TRAY IN PYXIS 1 EA TRAY MC ONE (15:47)
[2017-07-31 16:00] VITALS: BP 152/77
[2017-07-31] MEDS ORDERED: MORPHINE SULFATE INJ 2 MG/ML DISP.SYRIN ONE (16:24)
[2017-07-31] MEDS ORDERED: MORPHINE SULFATE INJ 2 MG/ML DISP.SYRIN IV ONE (16:30)
--- NOTE | 2017-07-31 17:25 | NUR ---
VEGETABLE SCULLION NOTES PT BACK FROM EGD. ORDERS NOTED TO ADVANCE HER DIET TOLERATED
--- NOTE | 2017-07-31 18:21 | NUR ---
KIDNEY PULLER CLOSING NOTES PT REMAINS IN STABLE CONDITION AFTER EGD PROCEDURE. SHE WAS ABLE TO TOLERATE HER DINNER WITHOUT ANY N/V. ALL NEEDS WERE MET DURING SHIFT AND ORDERS CARRIED OUT ACCORDINGLY. ALL DUE MEDS GIVEN. ALL SAFETY MEASURES IN PLACE. WILL ENDORSE TO NIGHTSHIFT NURSE FOR CRISTAL
--- NOTE | 2017-07-31 19:49 | NUR ---
TELE/RN RECEIVE PATIENT AWAKE, ALERT, ORIENTED, COMFORTABLE, NO C/O PAIN, NO DISTRESS NOTED, CALL LIGHT IN REACH.WILL MONITOR.
[2017-07-31 20:00] VITALS: BP 141/81
[2017-07-31] MEDS: ATORVASTATIN 40 MG TABLET PO SCH (21:28)
[2017-07-31] MEDS: INSULIN REGULAR, HUMAN 100 UNIT/ML 3 ML VIAL SQ PRN (21:30)
[2017-08-01] VITALS: BP 153/73
--- NOTE | 2017-08-01 00:10 | NUR ---
TELE/RN PATIENT IS SLEEPING AT THIS TIME, AROUSABLE, APPEAR COMFORTABLE, NO SIGNS OF DISTRESS NOTED, CALL LIGHT IN REACH. WILL CONTINUE TO MONITOR.
[2017-08-01] MEDS: HYDROCODONE/APAP 10/325MG 1 EA TABLET PO PRN ×2 (01:55→09:35)
[2017-08-01 04:00] VITALS: BP 152/76
[2017-08-01] MEDS: MORPHINE SULFATE SR 30 MG TABLET.SA PO SCH ×2 (05:28→12:50)
--- NOTE | 2017-08-01 06:14 | NUR ---
TELE/RN SLEEPING AROUSABLE, APPEAR COMFORTABLE, NO DISTRESS NOTED, CALL LIGHT IN REACH.ALL NEEDS ATTENDED AT THIS TIME. WILL CONTINUE TO MONITOR.
[2017-08-01] MEDS: INSULIN REGULAR, HUMAN 100 UNIT/ML 3 ML VIAL SQ PRN ×2 (06:25→12:57)
[2017-08-01] MEDS: BLOOD SUGAR DIAGNOSTIC 1 EACH STRIP IN SCH ×2 (06:27→12:43)
[2017-08-01] MEDS: hydrOXYzine PAMOATE 25 MG CAPSULE PO PRN (06:48)
--- NOTE | 2017-08-01 06:50 | NUR ---
TELE/RN PATIENT C/O FEELING ANXIOUS. PER PATIENT SHE TAKES VISTARIL FOR ANXIETY. VISTARIL 25 MG PO WAS GIVEN ORDERED. WILL MONITOR.
[2017-08-01 08:00] VITALS: BP 160/75
--- NOTE | 2017-08-01 08:00 | NUR ---
MED/SURGE RN NOTES RECEIVED PATIENT IN THE ROOM, A/O X4, NO RESPIRATORY DISTRESS, IV LINE ON RIGHT FOREARM 75ML/HR, INTACT, NO INFILTRATION. ENCOURAGED TO EXPRESS FEELINGS AND CONCERNS. PATIENT MED COMPLIANT,V/S STABLE, NEED ASSIST ADL'S, AND BATHROOM, NEEDS ATTENDED AND ANTICIPATED, CALL LIGHT WITHIN THE PATIENT TO REACH, SAFETY PRECAUTION MAINTAINED ALL THE TIME.
[2017-08-01 08:11] LABS: CALCIUM, SERUM 8.9 mg/dL (8.5-10.1); CREATININE 0.9 mg/dL (0.6-1.3); PHOSPHORUS 4.1 mg/dL (2.5-4.9); POTASSIUM 3.7 mmol/L (3.5-5.1)
[2017-08-01] MEDS: GABAPENTIN 400 MG CAPSULE PO SCH ×2 (09:20→12:49)
[2017-08-01] MEDS: VALACYCLOVIR HCL 500 MG TABLET PO SCH (09:20)
[2017-08-01] MEDS: DULOXETINE HCL 30 MG CAPSULE.DR PO SCH (09:20)
[2017-08-01] MEDS: ZIPRASIDONE 20 MG CAPSULE PO SCH (09:21)
[2017-08-01] MEDS: DOXAZOSIN MESYLATE (1 MG) 1 MG TABLET PO SCH (09:22)
[2017-08-01] MEDS: METOPROLOL SUCCINATE 25 MG TAB.SR.24H PO SCH (09:23)
[2017-08-01] MEDS: PHENYTOIN EXTENDED RELEASE 100 MG CAPSULE PO SCH (09:24)
[2017-08-01] MEDS: RENAL NOVASOURCE (8OZ) 1 EA BOX PO SCH ×2 (09:33→12:50)
[2017-08-01] MEDS: PANTOPRAZOLE 40 MG VIAL IV SCH (09:35)
--- NOTE | 2017-08-01 09:35 | NUR ---
rn notes administered narco 10/325 mg po prn per patient request for generalized pain 03/28, v/s taken bp-157/81, p-67, continued monitoring, encouraged patient increase fluid intake.
[2017-08-01 12:00] VITALS: BP 142/79
[2017-08-01 12:56] VITALS: BP 142/99
[2017-08-01] MEDS: hydrALAZINE HCL 25 MG TABLET PO PRN (12:56)
--- NOTE | 2017-08-01 13:00 | NUR ---
RN NOTES PATIENT IN THE ROOM, BS-133 MG/DL, V/S TAKEN BP-142/79, P-63, ADMINISTERED APRESOLINE PER PATIENT REQUEST, SCHEDULED MEDICATION ADMINISTERED, CALL LIGHT WITHIN THE PATIENT TO REACH, SAFETY PRECAUTION MAINTAINED ALL THE TIME, PATIENT GOING TO D/C SNF, WILL CONTINUED MONITORING.
--- NOTE | 2017-08-01 16:07 | NUR ---
REFRIGERATING ENGINEER HEAD NOTES PATIENT D/C AT THIS TIME GOING SNF, PATIENT A/O X3/4, NO ACUTE DISTRESS, NO C/O PAIN. NO RESPIRATORY DISTRESS, V/S STABLE, MEDICALLY STABLE TO BE D/C. DISCHARGE ORDER REVIEWED AND EXPLAINED TO. REPORT GIVEN SNF RN JAG. RN VERBALIZED UNDERSTANDING. BELONGING RETURNED BACK TO THE PATIENT. PICTURE TAKEN, PATIENT SIGN PAPERWORK, FAMILY AWARE OF DISCHARGE. PATIENT WILL FOLLOW FACILITY CLIENT PORTFOLIO MANAGER. PATIENT AIRPORT OPERATIONS SUPERVISOR BY AMBULANCE.
== END 2017-08-01 16:00 | DRG 380 ==
LOC: ER 10:09 → TELE 13:26 → MED 17:08 → TELE 07-29 17:38
PROVIDERS: ADMIT Internal Medicine; ATTEND Internal Medicine
PROC: 0DB98ZX Excision of Duodenum, Via Natural or Artificial Opening Endoscopic, Diagnostic (ICD-10-PCS; 2017-07-31)
PROC: 0DB58ZX Excision of Esophagus, Via Natural or Artificial Opening Endoscopic, Diagnostic (ICD-10-PCS; 2017-07-31)
PROC: 0DB68ZX Excision of Stomach, Via Natural or Artificial Opening Endoscopic, Diagnostic (ICD-10-PCS; principal; 2017-07-31 16:30)
DX: K22.11 Ulcer of esophagus with bleeding (principal); N17.0 Acute kidney failure with tubular necrosis; G92 Toxic encephalopathy; E44.0 Moderate protein-calorie malnutrition; K56.7 Ileus, unspecified; N39.0 Urinary tract infection, site not specified; K92.0 Hematemesis; T40.601A Poisoning by unspecified narcotics, accidental (unintentional), initial encounter; E11.22 Type 2 diabetes mellitus with diabetic chronic kidney disease; E66.01 Morbid (severe) obesity due to excess calories; E83.42 Hypomagnesemia; E87.5 Hyperkalemia; E86.0 Dehydration; I25.10 Atherosclerotic heart disease of native coronary artery without angina pectoris; Y92.009 Unspecified place in unspecified non-institutional (private) residence as the place of occurrence of the external cause; E78.5 Hyperlipidemia, unspecified; F31.9 Bipolar disorder, unspecified; K21.9 Gastro-esophageal reflux disease without esophagitis; K29.70 Gastritis, unspecified, without bleeding; K76.0 Fatty (change of) liver, not elsewhere classified; M06.9 Rheumatoid arthritis, unspecified; Z79.899 Other long term (current) drug therapy; Z79.84 Long term (current) use of oral hypoglycemic drugs; E88.09 Other disorders of plasma-protein metabolism, not elsewhere classified; D63.8 Anemia in other chronic diseases classified elsewhere; M47.894 Other spondylosis, thoracic region; T39.395A Adverse effect of other nonsteroidal anti-inflammatory drugs [NSAID], initial encounter; K29.80 Duodenitis without bleeding; M19.90 Unspecified osteoarthritis, unspecified site; M47.814 Spondylosis without myelopathy or radiculopathy, thoracic region; N18.9 Chronic kidney disease, unspecified; I12.9 Hypertensive chronic kidney disease with stage 1 through stage 4 chronic kidney disease, or unspecified chronic kidney disease; Z79.891 Long term (current) use of opiate analgesic; Z68.30 Body mass index [BMI] 30.0-30.9, adult
CPT/HCPCS: 36415; 71010-TC; 76770-TC; 80048-TC; 80053-TC; 80061-TC; 80076-TC; 81000-TC; 82550-TC; 82553-TC; 82570-TC; 82962-TC; 83605-TC; 83735-TC; 83970; 84100-TC; 84155; 84155-TC; 84165; 84300-TC; 84484-TC; 85025-TC; 85027-TC; 85730-TC; 87040-TC; 87086-TC; 88305-TC; 88313-TC; 88342; 93307-TC; 97110-TC; 97116-TC; 97530-TC; A4606; C9113; J0696; J1165; J1815; J2270; J2405; J2704; J2765; J3475; J3490; J7030; J7040; J7050; J7060; Q0177; Z7610

== ENCOUNTER 2018-10-25 05:14 | Inpatient (IN) | payer MEDICARE, OTHER ==
[2018-10-25] VITALS (55 sets, daily range): BP systolic 70–185; BP diastolic 43–124
[~2018-10-25] VITALS: Ht 154.9 cm; Wt 75.7 kg
[~2018-10-25 05:14] MED LIST changes: -LEVO500T15 PO; -LOSA100T15 PO; +LOSA100T31 PO; -MELO-264 PO; +METF-442 PO; -METF10002 PO; -TRAZ-144 PO; +TRAZ-182 PO; -VALA500T35 PO; +VALA500T36 PO
[2018-10-25] MEDS ORDERED: IV NS 0.9% 1,000 ML BAG IV ONE ×2 (05:30→06:30)
[2018-10-25 05:35] LABS: BASOPHILS # (AUTO) 0.1 /CMM (0.0-0.2); BASOPHILS % (AUTO) 0.6 % (0.0-2.0); EOSINOPHILS % (AUTO) 0.3 % (0.0-6.0); HEMATOCRIT 41 % (33-45); HEMOGLOBIN 13.2 g/dL (11.5-14.8); LYMPHOCYTES # (AUTO) 1.7 /CMM (0.8-4.8); LYMPHOCYTES % (AUTO) 11.8 % (20.0-44.0); MEAN CORPUSCULAR HGB CONC 32 g/dl (31.0-36.0); MEAN CORPUSCULAR VOLUME 90 fL (82-100); MONOCYTES # (AUTO) 0.6 /CMM (0.1-1.30); MONOCYTES % (AUTO) 4.3 % (2.0-12.0); NEUTROPHILS # (AUTO) 12.3 /CMM (1.8-8.9); PLATELET COUNT (AUTO) 246 /CMM (150-450); RED BLOOD CELL COUNT(AUTO) 4.58 MIL/uL (4.0-5.2); WHITE BLOOD COUNT (AUTO) 14.7 K/uL (4.3-11.0)
--- NOTE | 2018-10-25 05:35 | NUR ---
PT BIB RA. COMP OF "BEING FOUND ON THE FLOOR, ALTERED, BY ". BELIEVED TO HAVE A SEIZURE. NO SOB NOTED. NO ACUTE DISTRESS AT THIS TIME. SEIZURE PRECAUTIONS TAKEN. MD AWARE. AWAITING MD AMAYA.
--- NOTE | 2018-10-25 05:45 | NUR ---
BLOOD COLLECTED AND SENT FOR ANALYSIS.
--- NOTE | 2018-10-25 05:45 | NUR ---
URINE COLLECTED AND SENT FOR ANALYSIS.
[2018-10-25 05:53] LABS: ALANINE AMINOTRANSFERASE 38 U/L (12-78); ALBUMIN 3.9 g/dL (3.4-5.0); ALKALINE PHOSPHATASE 208 U/L (46-116); ASPARTATE AMINOTRANSFERASE 41 U/L (15-37); BILIRUBIN,DIRECT 0.1 mg/dL (0.0-0.2); BILIRUBIN,TOTAL 0.4 mg/dL (0.2-1.0); CALCIUM, SERUM 9.2 mg/dL (8.5-10.1); CARBON DIOXIDE 19 mmol/L (21-32); CHLORIDE 100 mmol/L (98-107); CREATININE 1.4 mg/dL (0.6-1.3); POTASSIUM 3.9 mmol/L (3.5-5.1); SALICYLATE 6.1 mg/dL (2.8-20.0); SODIUM SERUM 137 mmol/L (136-145); TOTAL PROTEIN, SERUM 8.3 g/dL (6.4-8.2); UREA NITROGEN, BLOOD 21 mg/dL (7-18)
--- NOTE | 2018-10-25 05:55 | NUR ---
PT TAKEN TO RADIOLOGY.
[2018-10-25 05:57] LABS: ACETAMINOPHEN 0 ug/ml (10-30); ALCOHOL, BLOOD < 3 mg/dL (0-0); GLUCOSE 393 mg/dL (74-106)
[2018-10-25 06:18] LABS: APPEARANCE,URINE CLEAR (CLEAR); BILIRUBIN,URINE NEGATIVE (NEGATIVE); BLOOD, URINE 2+ Ery/uL (NEGATIVE); COLOR,URINE YELLOW (YELLOW); KETONES,URINE TRACE (NEGATIVE); LEUKOCYTE ESTERASE ,URINE NEGATIVE (NEGATIVE); NITRITE, URINE NEGATIVE (NEGATIVE); PH,URINE 6.5 (5.0-8.0); PROTEIN,URINE 2+ mg/dl (NEGATIVE); UGLUCOSE 3+ mg/dL (NEGATIVE); UROBILINOGEN,URINE 0.2 EU/dL (0.2)
[2018-10-25 06:23] LABS: BACTERIA,URINE Few /HPF (None Seen); SQUAMOUS EPITHELIAL CELL,UR Few /HPF (None Seen); WBC,URINE 0-2 /HPF (0-3)
--- NOTE | 2018-10-25 06:51 | NUR ---
ASSIGNMENT [id number].
--- NOTE | 2018-10-25 06:58 | NUR ---
REPORT GIVEN TO PK FUENTES.
--- NOTE | 2018-10-25 07:15 | NUR ---
RECEIVED PATIENT FROM ER VIA [employer]. PATIENT A/OX1, TO NAME ONLY. CONFUSED, DOESNT KNOW WHERE SHE IS AND WHY. PATIENT SKIN COLD AND CLAMMY. CHECKED VS, B/P = 172/120, P=132, R=22, O2SAT 94%. PLACED ON TELE MONITOR, READS ST 140-150s. PATIENT THEN BECAME TACHYPNIC AND DESATTING TO 80-86%. PLACED PATIENT ON NONREBREATHER ON 15LPM, SATTING 95%. NOTIFIED FINANCIAL AID AND RESIDENTIAL CASE MANAGER, CALLING DR JEFFERSON BUT NO RESPONSE. 0747: ZR=818/100, P=146, BLOOD BDPBAKG=854. SATTING 97% 0750: RAPID RESPONSE INITIATED. 0751: CARDIAC MONIOTR IN PLACED, GLJSU=492, Q1FGI=59%. 0753: ICU FINANCIAL AID, GILL, AND RESIDENTIAL CASE MANAGER PAT PRESENT ON THE ROOM. 0755: SS=599/129, OASFJ=497, O2SAT 99%. 0800: TRANSFERRED TO ICU. NOTIFIED.
[2018-10-25] MEDS ORDERED: LORAZEPAM INJ 2 MG/ML VIAL IV PRN (07:30)
--- NOTE | 2018-10-25 08:10 | NUR ---
PT REC'D ON NRB MASK @ 15LPM. PT TRANSFERRED TO ICU PER RAPID RESPONSE. PT SHOWED SIGNS OF RESP DISTRESS, TACHYPNEA, AND TACHYCARDIA. PT AWAKE AND RESPONSIVE. UPON CRITICAL ABG RESULTS, PT PLACED ON BIPAP PER MD ORDERS. ALARMS ARE SET AND AUDIBLE. BIPAP PLUGGED INTO RED OUTLET. AMBU BAG BEDSIDE. WILL CONTINUE TO MONITOR. Addendum: 10/25/18 at 0833 by NORMA STEWART RT Amended: Links added.
[2018-10-25] MEDS ORDERED: INSULIN REGULAR, HUMAN 100 UNIT in IV NS 0.9% 99 ML IV PRN ×2 (08:30)
[2018-10-25] MEDS ORDERED: IV NS 0.9% 1,000 ML IV PRN (08:30)
--- NOTE | 2018-10-25 08:40 | NUR ---
RN NOTES RECEIVED PATIENT IN ROOM 258, A/OX1 , CONFUSED , ON BIPAP, O2 SAT HIGH 90'S , ON TELE ST HR IN 140'S , ON ACCU CHECK Q1 HR, , SR UP x3, CALL LIGHT WITHIN EASY REACH, BED LOCKED AND IN LOWEST POSITION, CONTINUE TO MONITOR .
[2018-10-25] MEDS: IV NS 0.9% 1,000 ML IV PRN ×5 (08:47→22:08)
[2018-10-25] MEDS ORDERED: LOSARTAN POTASSIUM 50 MG TABLET PO SCH (09:00)
[2018-10-25] MEDS ORDERED: MORPHINE SULFATE SR 30 MG TABLET.SA PO SCH (09:00)
[2018-10-25] MEDS ORDERED: FUROSEMIDE 20 MG TABLET PO SCH (09:00)
[2018-10-25 09:04] LABS: ABG BASE EXCESS -16.7 mmol/L; ABG OXYGEN SATURATION 96.2 % (92.0-98.5); ABG PCO2 39.2 mmHg (35.0-45.0); ABG PH 7.107 (7.350-7.450); ABG PO2 135.6 mmHg (75.0-100.0); AaDO2 538.2 mmHg; COHb 0.5 % (0.5-1.5); MetHb 0.1 % (0.0-1.5); O2Hb 95.6 % (94.0-97.0); SITE, ABG Right Radial; VENT MODE, BG NON-REBREATHER
[2018-10-25] MEDS: PHENYTOIN EXTENDED RELEASE 100 MG CAPSULE PO SCH ×2 (09:09→17:00)
[2018-10-25] MEDS: ASPIRIN EC 325 MG TABLET.DR PO SCH (09:09)
[2018-10-25] MEDS: DOCUSATE SODIUM 100 MG CAPSULE PO SCH ×2 (09:09→17:00)
[2018-10-25] MEDS: ENOXAPARIN SODIUM 80 MG/0.8 ML DISP.SYRIN SQ SCH ×2 (09:09→21:09)
[2018-10-25] MEDS: METOPROLOL SUCCINATE 25 MG TAB.SR.24H PO SCH (09:10)
[2018-10-25] MEDS: DOXAZOSIN MESYLATE (1 MG) 1 MG TABLET PO SCH (09:10)
[2018-10-25] MEDS: GABAPENTIN 400 MG CAPSULE PO SCH ×3 (09:10→17:00)
[2018-10-25] MEDS: DULOXETINE HCL 30 MG CAPSULE.DR PO SCH ×2 (09:10→17:00)
[2018-10-25 09:15] LABS: CREATININE 1.3 mg/dL (0.6-1.3); POTASSIUM 3.8 mmol/L (3.5-5.1)
[2018-10-25] MEDS: PANTOPRAZOLE 40 MG TABLET.DR PO SCH (09:18)
[2018-10-25] MEDS ORDERED: PHENYTOIN SODIUM IV 50 MG/ML VIAL IV ONE (11:00)
[2018-10-25] MEDS ORDERED: ENOXAPARIN SODIUM 80 MG/0.8 ML DISP.SYRIN SQ SCH (11:30)
[2018-10-25 11:49] LABS: ABG BASE EXCESS -8.6 mmol/L; ABG OXYGEN SATURATION 98.1 % (92.0-98.5); ABG PCO2 31.4 mmHg (35.0-45.0); COHb 0.3 % (0.5-1.5); O2Hb 97.8 % (94.0-97.0); SITE, ABG Right Radial; VENT MODE, BG BIPAP 15/5 100%
[2018-10-25] MEDS: FENOFIBRATE NANOCRYS (145 MG) 145 MG TABLET PO SCH (11:59)
[2018-10-25] MEDS ORDERED: phenytoin SODIUM IV 1,000 MG in IV NS 0.9% 100 ML IV ONE (12:00)
--- NOTE | 2018-10-25 12:00 | NUR ---
RN NOTES DR BARRON NOTIFED REGARDING TROPONIN 4.438 BNP [id number] AND LA= 6.8, CONTINUE TO MONITOR .
--- NOTE | 2018-10-25 12:30 | NUR ---
RN NOTES DR PEDRO AT THE BEDSIDE SEEING PT .
[2018-10-25] MEDS: ZIPRASIDONE 20 MG CAPSULE PO SCH ×2 (12:48→17:00)
[2018-10-25] MEDS: Z GUARD REMEDY 2 OZ OINT TP SCH (12:49)
[2018-10-25] MEDS ORDERED: IV NS 0.9% 500 ML IV ONE (15:00)
--- NOTE | 2018-10-25 15:00 | NUR ---
RN NOTES BP 79/58 , DR BALTAZAR AT THE BEDSIDE, ORDER RECEIVED FROM DR BALTAZAR FOR BOLUS IV 1000 CC x1, CONTINUE TO MONITOR.
[2018-10-25 15:22] LABS: ABG BASE EXCESS -10.3 mmol/L; ABG OXYGEN SATURATION 97.1 % (92.0-98.5); ABG PH 7.387 (7.350-7.450); ABG PO2 147.1 mmHg (75.0-100.0); AaDO2 112.8 mmHg; COHb 0.3 % (0.5-1.5); MetHb 0.3 % (0.0-1.5); O2Hb 96.5 % (94.0-97.0); SITE, ABG Left Brachial
[2018-10-25 15:25] LABS: CALCIUM, SERUM 7.6 mg/dL (8.5-10.1); CREATININE 1.4 mg/dL (0.6-1.3); POTASSIUM 3.5 mmol/L (3.5-5.1)
--- NOTE | 2018-10-25 15:42 | NUR ---
RN NOTES BP=71/[address] BALTAZAR FOR LEVO TO START , CONTINUE TO MONITOR.
[2018-10-25] MEDS ORDERED: NOREPINEPHRINE 8 MG in IV D5W 500 ML IV PRN (16:00)
--- NOTE | 2018-10-25 17:00 | NUR ---
RN NOTES DR MEDEL NOTIFED REGARDING DILANTIN LEVEL .
--- NOTE | 2018-10-25 18:49 | NUR ---
RN NOTES LA=399/73, PT IS AROUSABLE TO VERBAL STIMULI, LEVO AT 4MCG/MIN AND NS AT 150CC/HR AND INSULIN GTT AT 1U/H RUNNING VIA R UPPER ARM MIDLINE , NO COMPLICATION NOTED, SR UP X3, CALL LIGHT WITHIN EASY REACH, WILL ENDOSE TO RETAIL GIFT CARD MERCHANDISING NURSE FOR CONTINUITY OF CARE .
--- NOTE | 2018-10-25 19:15 | NUR ---
TALENT SOURCING SPECIALIST.PT WAS ON BIPAP ,LEAK NOTED. RT LEONEL MADE AWARE, MASK CHANGED AND PLACED MEPILEX. AT THIS TIME PT IS COMFORTABLE.WILL CONTINUE TO MONITOR.
--- NOTE | 2018-10-25 20:00 | NUR ---
ATMOSPHERIC SCIENCES PROFESSOR. INITIAL ASSESSMENT. RECEIVED THE PT REST ON THE BED. AWAKE, ALERT, FOLLOW COMMANDS. CERT OCCUPATIONAL THERAPY ASST SHOWING NSR. PT ON BIPAP. SETTINGS 15/5, RATTE IS 24, FIO2 40%. SAT 98%. NO ACUTE DISTRESS NOTED. IV RT UPPER ARM MID LINE IVF NS 150ML/H,LEVOPHED 4MCG/MIN,INSULIN DRIP PER PER PROTOCOL. FC PATENT. HOB ELEVATED. WILL CONTINUE TO MONITOR VITALS.
--- NOTE | 2018-10-25 20:09 | NUR ---
RECEIVED PT ON BIPAP ON NOTED SETTINGS. PT IS AWAKE AND FOLLOW COMMANDS. CHANGED MASK TO MEDIUM SIZE DUE TO LEAK RN NOTIFIED. PLACED MEPILEX AROUND THE BRIDGE FO THE NOSE. ALARMS SET AND AUDIBLE. AMBU BAG AT BEDSIDE. WILL CONTINUE TO MONITOR. Addendum: 10/25/18 at 2010 by LEONEL HORTON RT Amended: Links added.
[2018-10-25] MEDS ORDERED: PHENYTOIN SODIUM IV 50 MG/ML VIAL IV SCH (21:00)
[2018-10-25] MEDS: FOSPHENYTOIN SODIUM PE 100 MG/2 ML VIAL IV SCH (21:04)
[2018-10-25] MEDS ORDERED: TRAZODONE 50 MG TABLET PO SCH (22:00)
[2018-10-25] MEDS: ATORVASTATIN 40 MG TABLET PO SCH (22:22)
[2018-10-25 23:13] LABS: CREATININE 1.3 mg/dL (0.6-1.3); POTASSIUM 4.2 mmol/L (3.5-5.1)
[2018-10-25 23:19] LABS: CALCIUM, SERUM 7.8 mg/dL (8.5-10.1)
[2018-10-26] VITALS (74 sets, daily range): BP systolic 97–165; BP diastolic 59–116
[2018-10-26] MEDS ORDERED: BLOOD SUGAR DIAGNOSTIC 1 EACH STRIP IN SCH
[2018-10-26] MEDS ORDERED: IV D5/ 0.9% NACL 1,000 ML IV PRN (00:30)
[2018-10-26] MEDS: oxyCODONE/APAP (5/325 MG) 1 UDTAB TABLET PO PRN ×2 (02:54→21:53)
--- NOTE | 2018-10-26 03:54 | NUR ---
PRODUCT MANAGEMENT SPECIALIST. AM CARE, ORAL CARE BED BATH GIVEN. LINEN CHANGED. REMAINING SAME BIPAP SETTING TOLERATED WELL. SAT 99%. NO ACUTE DISTRESS NOTED. NURSERY MANAGER SHOWING NSR, IV RT UPPER . ARM MID LINE IVF D5NS 90ML/H. INSULIN DRIP PER PROTOCOL. FC PATENT. TURN AND REPOSITION Q2H, WILL CONTINUE TO MONITOR VITALS.
[2018-10-26 04:51] LABS: BASOPHILS # (AUTO) 0.1 /CMM (0.0-0.2); BASOPHILS % (AUTO) 0.4 % (0.0-2.0); EOSINOPHILS % (AUTO) 0.1 % (0.0-6.0); HEMATOCRIT 32 % (33-45); HEMOGLOBIN 10.4 g/dL (11.5-14.8); LYMPHOCYTES # (AUTO) 2.8 /CMM (0.8-4.8); LYMPHOCYTES % (AUTO) 15.8 % (20.0-44.0); MEAN CORPUSCULAR HGB CONC 32 g/dl (31.0-36.0); MEAN CORPUSCULAR VOLUME 91 fL (82-100); MONOCYTES # (AUTO) 1.5 /CMM (0.1-1.30); MONOCYTES % (AUTO) 8.4 % (2.0-12.0); NEUTROPHILS # (AUTO) 13.5 /CMM (1.8-8.9); NEUTROPHILS % (AUTO) 75.3 % (43.0-81.0); PLATELET COUNT (AUTO) 172 /CMM (150-450); RED BLOOD CELL COUNT(AUTO) 3.54 MIL/uL (4.0-5.2); WHITE BLOOD COUNT (AUTO) 17.9 K/uL (4.3-11.0)
[2018-10-26 05:04] LABS: ALBUMIN 2.7 g/dL (3.4-5.0); BILIRUBIN,TOTAL 0.3 mg/dL (0.2-1.0); CALCIUM, SERUM 7.4 mg/dL (8.5-10.1); CREATININE 1.2 mg/dL (0.6-1.3); MAGNESIUM 1.3 mg/dL (1.8-2.4); PHOSPHORUS 3.9 mg/dL (2.5-4.9); POTASSIUM 3.6 mmol/L (3.5-5.1)
[2018-10-26] MEDS: FOSPHENYTOIN SODIUM PE 100 MG/2 ML VIAL IV SCH ×3 (05:27→21:52)
[2018-10-26] MEDS: BLOOD SUGAR DIAGNOSTIC 1 EACH STRIP IN SCH ×19 (05:41→23:00)
[2018-10-26 06:24] LABS: PHENYTOIN (DILANTIN) 12.2 ug/ml (10.0-20.0)
[2018-10-26 06:33] LABS: THYROID STIMULATING HORMONE 0.853 uIU/mL (0.358-3.74)
--- NOTE | 2018-10-26 07:10 | NUR ---
RN INITIAL NOTES: Rec'd pt awake on bed, in distress, A/O x 1. On Bipap, noted SOB. On telemonitor, Has BHARATHI midline G18 w/ D5NS x 90 cc/hr & Insulin drip x 0.5 u/hr (on accucheck q1H). Has FC draining to BSB w/ yellowish UOP. Safety precaution in place. Bed in low & locked pos. Call light w/in reach. Pt kept on removing her Bipap mask despite of health teaching done. Will continue to monitor & attend pt needs.
[2018-10-26] MEDS: PANTOPRAZOLE 40 MG TABLET.DR PO SCH (07:30)
[2018-10-26] MEDS: ZIPRASIDONE 20 MG CAPSULE PO SCH ×2 (07:44→16:48)
[2018-10-26] MEDS: DULOXETINE HCL 30 MG CAPSULE.DR PO SCH ×2 (07:44→16:48)
--- NOTE | 2018-10-26 07:45 | NUR ---
Pt seen & examined by Dr. Garcia. Updated about pt status. Trop level 10.065 relayed to him. Orders has been made & carried out. ECG reading read by .
--- NOTE | 2018-10-26 07:45 | NUR ---
RT PATIENT CONT TO RIP OFF BIPAP MASK REFUSING TO LEAVE ON. PATIENT IS SAYING JUST LET HER BREATH ON HER OWN. RT PLACED PATIENT ON SUPPLEMENTAL OXYGEN AND WILL MONITOR CLOSELY. PATIENT IN MOD DISTRESS WITH HIGH ANXIETY. RN AWARE AND AT BEDSIDE.
[2018-10-26] MEDS ORDERED: POTASSIUM CHLORIDE 20 MEQ TAB.PRT.SR PO SCH (08:00)
[2018-10-26] MEDS: FUROSEMIDE 40 MG/4 ML VIAL IV SCH ×3 (08:04→16:20)
--- NOTE | 2018-10-26 08:43 | NUR ---
Pt keeps on removing her BIPAP mask considering her severe respiratory distress despite of health teaching done. Dr. Sloan made aware w/ orders to place on acute medical restraints.
[2018-10-26] MEDS: ENOXAPARIN SODIUM 80 MG/0.8 ML DISP.SYRIN SQ SCH ×2 (08:49→21:57)
[2018-10-26] MEDS: Magnesium 1GM/D5W 100ML PREMIX 100 ML IV SCH ×2 (08:49→09:49)
[2018-10-26 08:50] LABS: ABG BASE EXCESS -14.1 mmol/L; ABG OXYGEN SATURATION 88.7 % (92.0-98.5); ABG PCO2 51.2 mmHg (35.0-45.0); ABG PH 7.095 (7.350-7.450); ABG PO2 76.7 mmHg (75.0-100.0); AaDO2 149.6 mmHg; COHb 0.9 % (0.5-1.5); O2Hb 87.9 % (94.0-97.0); SITE, ABG Right Brachial
--- NOTE | 2018-10-26 08:50 | NUR ---
Dr. Sloan seen & examined pt & orders to call ER for intubation. 0900H Dr. Henson did intubation. CXR & ABG ordered post intubation. 0930H Dr. Sloan updated about pt condition w/ orders to start on Diprivan Drip & titrate accordingly. May insert NGT/OGT. may change K dur to IV KCL. 1015H Rec'd call from pt's dylan Worrell & updated about pt condition. Addendum: 10/26/18 at 1836 by YOSELYN FARNSWORTH RN Addendum: OGT placed, placement confirmed by 2 RN's as well as CXR.
[2018-10-26] MEDS: METOPROLOL SUCCINATE 25 MG TAB.SR.24H PO SCH (09:00)
[2018-10-26] MEDS: FENOFIBRATE NANOCRYS (145 MG) 145 MG TABLET PO SCH (09:00)
[2018-10-26] MEDS: DOXAZOSIN MESYLATE (1 MG) 1 MG TABLET PO SCH (09:00)
[2018-10-26] MEDS: DOCUSATE SODIUM 100 MG CAPSULE PO SCH ×2 (09:00→16:49)
[2018-10-26] MEDS: ASPIRIN EC 325 MG TABLET.DR PO SCH (09:00)
[2018-10-26] MEDS: GABAPENTIN 400 MG CAPSULE PO SCH ×3 (09:00→16:48)
[2018-10-26] MEDS: Z GUARD REMEDY 2 OZ OINT TP SCH (09:39)
[2018-10-26] MEDS: PROPOFOL 100 ML IV PRN ×4 (09:49→20:51)
[2018-10-26 10:30] LABS: ABG OXYGEN SATURATION 98.2 % (92.0-98.5); ABG PCO2 41.7 mmHg (35.0-45.0); ABG PH 7.209 (7.350-7.450); ABG PO2 474.7 mmHg (75.0-100.0); AaDO2 196.6 mmHg; COHb 0.3 % (0.5-1.5); MetHb 0.3 % (0.0-1.5); O2Hb 97.6 % (94.0-97.0); PEEP,BG 5 cm H2O; SITE, ABG Right Radial; VT, ABG 500 mL
[2018-10-26] MEDS ORDERED: ALBUTEROL HALF STRENGTH 1.25 MG/3 ML VIAL.NEB NEB PRN (10:30)
[2018-10-26] MEDS ORDERED: PIPERACILLIN /TAZOBACTAM 3.375 G in IV D5W 50 ML IV SCH (10:30)
--- NOTE | 2018-10-26 10:35 | NUR ---
Haven relayed to Dr. Sloan c/o RT w/ order to change TV to 550.
[2018-10-26] MEDS: POTASSIUM CL. PREMIX PERIPHER. 50 ML IV SCH ×6 (10:38→16:18)
[2018-10-26] MEDS ORDERED: SUCCINYLCHOLINE CHLORIDE 20 MG/ML VIAL IV ONE (11:09)
[2018-10-26] MEDS ORDERED: ETOMIDATE 2 MG/ML VIAL IV ONE (11:09)
[2018-10-26] MEDS: PIPERACILLIN /TAZOBACTAM 2.25 G in IV D5W 50 ML IV SCH ×2 (11:22→17:21)
--- NOTE | 2018-10-26 12:10 | NUR ---
ALBERTO Galvan seen & examined pt & updated about pt status, w/ orders made & carried out. Addendum: 10/26/18 at 1430 by YOSELYN FARNSWORTH RN Per MEDICAID ANALYST change diet to NPO except meds.
--- NOTE | 2018-10-26 16:00 | NUR ---
Temp of 101.3, Cole HOST AND HOSTESS made aware w/ orders to do panculture.
[2018-10-26 16:27] LABS: CALCIUM, SERUM 7.6 mg/dL (8.5-10.1); CREATININE 1.2 mg/dL (0.6-1.3); POTASSIUM 4.4 mmol/L (3.5-5.1)
--- NOTE | 2018-10-26 17:30 | NUR ---
Cole, GLOBAL MARKETING SPECIALIST informed about latest Anion 19, BS 150-190's, insulin drip x 0.5 u/hr. Per GLOBAL MARKETING SPECIALIST continue drip for now & follow protocol.
--- NOTE | 2018-10-26 17:55 | NUR ---
RT END OF THE SHIFT REPORT; PT. 68 Y OLD FEMALE ORALLY INTUBATED ETT# 7.0@ 22 CM SECURED AT THE LIP. REMAIN STABLE. @0700 AM PT. REC, @ 0905 INTUBATED BY ER POST ABG RESULTS. PLACED ON VENT WITH NOTED SETTINGS, ALARMS SET AND FUNCTIONAL. VENT CHANGES ORDER BY DR. BALTAZAR. RN NOTIFIED THE CHANGES. PT. TOLERATING VENT SETTINGS. SX'D FOR SMALL AMT OF WHITE SECRETIONS. EQUAL CHEST RISE NOTED. CUFF POURER BULL LADLE. VENT ALARMS SET AND AUDIBLE. AMBU BAG AT BEDSIDE. VENT PLUGGED INTO RED OUTLET. WILL CONTINUE TO MONITOR. HME CHANGED. REPORT WILL PASS TO PM SHIFT. Addendum: 10/26/18 at 1758 by KEVIN MADRIGAL RT Amended: Links added.
--- NOTE | 2018-10-26 18:58 | NUR ---
RN CLOSING NOTES: Pt currently sedated, not in any distress. P tolerated MV via ETT, sating at 100%. Still ST on telemonitor. BHARATHI midline G18 kept patent & intact w/ Diprivan drip x 50 mcg & Insulin drip x 0.5 u/hr (accucheck done q1H). L AC G18 & L AC G22 both SL, no s/sx of infection/infiltration noted. FC kept patent & intact draining to BSB w/ yellowish UOP. Bilateral wrist soft restraints kept on for safety. OGT kept patent & intact, clamped. Pt kept well rested. Needs attended. Bed in low & locked pos. Call light w/in reach. Endorsed to PM RN for CRISTAL.
--- NOTE | 2018-10-26 19:30 | NUR ---
SUPERVISOR PROCESS TESTING NOTE RECEIVED PT INTUBATED AND SEDATED. ETT 7.0 AND 22 @ THE LIP. ON MECH VENT WITH SETTINGS WELL TOLERATED. HOB ELEVATED AND ON ASPIRATION PRECAUTIONS. BREATHING UNLABORED. TELE-SINUS TACH 113. IV BHARATHI MIDLINE CLEAN WITH DIPRIVAN AND INSULIN DRIP INFUSING. BILATERAL SOFT WRIST RESTRAINTS IN PLACE WITH RADIAL PULSES PALPABLE AND NO DISCOLORATION NOTED. DEAL CATHETER IN PLACE AND DRAINING BY GRAVITY. WILL CONTINUE TO MONITOR.
[2018-10-26] MEDS: ATORVASTATIN 40 MG TABLET PO SCH (21:52)
--- NOTE | 2018-10-26 23:00 | NUR ---
SUPERVISOR ENGINE REPAIR NOTE PT HEART RATE ON TELEMONITOR 150-160. STAT EKG PERFORMED. EKG SHOWED AFIB UNCONTROLLED. NOTIFIED BALLAST REGULATOR OPERATOR DR HAND. THEN HEART RATE WENT BACK DOWN TO [address] HAND WITH ORDERS TO MONITOR FOR NOW AND CALL DR POWELL IF PT RETURNS TO AFIB UNCONTROLLED. ORDERS NOTED AND CARRIED OUT.
[2018-10-27] VITALS (37 sets, daily range): BP systolic 91–146; BP diastolic 37–108
[2018-10-27] MEDS: BLOOD SUGAR DIAGNOSTIC 1 EACH STRIP IN SCH ×24 (00:10→23:04)
[2018-10-27] MEDS: PIPERACILLIN /TAZOBACTAM 2.25 G in IV D5W 50 ML IV SCH ×5 (00:11→23:21)
[2018-10-27] MEDS: PROPOFOL 100 ML IV PRN ×6 (00:14→23:15)
[2018-10-27 00:44] LABS: CREATININE 1.3 mg/dL (0.6-1.3); POTASSIUM 3.2 mmol/L (3.5-5.1)
[2018-10-27] MEDS: FOSPHENYTOIN SODIUM PE 100 MG/2 ML VIAL IV SCH ×3 (05:01→20:47)
[2018-10-27 05:04] LABS: BASOPHILS # (AUTO) 0.1 /CMM (0.0-0.2); BASOPHILS % (AUTO) 0.4 % (0.0-2.0); EOSINOPHILS % (AUTO) 0.3 % (0.0-6.0); HEMATOCRIT 32 % (33-45); HEMOGLOBIN 10.5 g/dL (11.5-14.8); LYMPHOCYTES # (AUTO) 3.1 /CMM (0.8-4.8); LYMPHOCYTES % (AUTO) 21.8 % (20.0-44.0); MEAN CORPUSCULAR HGB CONC 33 g/dl (31.0-36.0); MEAN CORPUSCULAR VOLUME 91 fL (82-100); MONOCYTES % (AUTO) 6.7 % (2.0-12.0); NEUTROPHILS # (AUTO) 10.1 /CMM (1.8-8.9); NEUTROPHILS % (AUTO) 70.8 % (43.0-81.0); PHENYTOIN (DILANTIN) 9.1 ug/ml (10.0-20.0); PLATELET COUNT (AUTO) 151 /CMM (150-450); RED BLOOD CELL COUNT(AUTO) 3.52 MIL/uL (4.0-5.2); WHITE BLOOD COUNT (AUTO) 14.3 K/uL (4.3-11.0)
[2018-10-27 05:14] LABS: ALBUMIN 2.5 g/dL (3.4-5.0); BILIRUBIN,TOTAL 0.3 mg/dL (0.2-1.0); CALCIUM, SERUM 8.2 mg/dL (8.5-10.1); CREATININE 1.3 mg/dL (0.6-1.3); MAGNESIUM 1.5 mg/dL (1.8-2.4); PHOSPHORUS 3.4 mg/dL (2.5-4.9); POTASSIUM 3.2 mmol/L (3.5-5.1)
--- NOTE | 2018-10-27 06:05 | NUR ---
FIRST MATE NOTE PT NOTED WITH RAPID AFIB UNCONTROLLED FROM 150-170 HEART RATE. NOTIFIED REDEVELOPMENT SPECIALIST DR HAND WITH ORDERS TO START AMIO DRIP. ORDERS NOTED AND CARRIED OUT.
[2018-10-27] MEDS ORDERED: AMIODARONE 150 MG/3 ML VIAL IV ONE ×2 (06:19→06:21)
[2018-10-27] MEDS ORDERED: AMIODARONE 150 MG in IV D5W 100 ML IV ONE (06:30)
[2018-10-27] MEDS: AMIODARONE 900 MG in IV D5W 482 ML IV PRN ×2 (06:38→18:11)
--- NOTE | 2018-10-27 07:15 | NUR ---
REPORT RECEIVED from Tim Real, remains on bilateral soft wrist restraints, Propofol, amiodarone drip
--- NOTE | 2018-10-27 07:26 | NUR ---
EXTERIOR DOOR INSTALLER NOTE PT STARTED ON AMIO DRIP. TELE- 164 AFIB UNCONTROLLED. VENT SETTINGS WELL TOLERATED. SUCTIONED NEEDED. REPOSITIONED Q2H. ALL NEEDS ATTENDED TO PROMPTLY. KEPT CLEAN AND DRY. FLUIDS INFUSING ORDERED. NPO STATUS MAINTAINED. WILL ENDORSE TO NEXT SHIFT FOR CONTINUITY OF CARE.
--- NOTE | 2018-10-27 07:28 | NUR ---
RT PATIENT REC'D ORALLY INTUBATED ON [facility] VENT WITH ORDERED SETTINGS. ALARMS CHECKED + AUDIBLE. PATIENT SUCTIONED WITH SMALL AMT OF PALE SEMITHICK SECRETIONS. AMBU BAG AT HOB Addendum: 10/27/18 at 0900 by JOY MORALES RT Amended: Links added.
--- NOTE | 2018-10-27 07:41 | NUR ---
cardioversion done by Dr Garcia at beside; pt on propofol drip 120 joules charge applied HR remains at 150; at 074 150 joules charge applied by Dr Garcia HR at 110-112 ; rhytm appears regular; EKG pending
[2018-10-27] MEDS: Magnesium 1GM/D5W 100ML PREMIX 100 ML IV SCH ×2 (08:08→09:28)
[2018-10-27] MEDS: POTASSIUM CL. PREMIX PERIPHER. 50 ML IV SCH ×10 (08:08→21:48)
[2018-10-27] MEDS: ASPIRIN EC 325 MG TABLET.DR PO SCH (08:08)
[2018-10-27] MEDS: FUROSEMIDE 40 MG/4 ML VIAL IV SCH ×3 (08:08→17:20)
[2018-10-27] MEDS: DULOXETINE HCL 30 MG CAPSULE.DR PO SCH ×2 (08:08→17:20)
[2018-10-27] MEDS: DOCUSATE SODIUM 100 MG CAPSULE PO SCH ×2 (08:09→17:20)
[2018-10-27] MEDS: DOXAZOSIN MESYLATE (1 MG) 1 MG TABLET PO SCH (08:09)
[2018-10-27] MEDS: PANTOPRAZOLE 40 MG TABLET.DR PO SCH (08:09)
[2018-10-27] MEDS: ENOXAPARIN SODIUM 80 MG/0.8 ML DISP.SYRIN SQ SCH ×2 (08:23→20:37)
[2018-10-27 08:35] LABS: ABG BASE EXCESS -5.1 mmol/L; ABG OXYGEN SATURATION 95.9 % (92.0-98.5); ABG PCO2 30.3 mmHg (35.0-45.0); ABG PH 7.407 (7.350-7.450); ABG PO2 100.2 mmHg (75.0-100.0); AaDO2 150.2 mmHg; MetHb 0.2 % (0.0-1.5); O2Hb 95.7 % (94.0-97.0); SITE, ABG Right Radial; VENT MODE, BG AC 18 550 40% +5
--- NOTE | 2018-10-27 08:57 | NUR ---
PER DR TELLEZ ORDER ETT ADVANCED 2 CM AND SECURED AT 24CM TOP MID LIP.
[2018-10-27] MEDS: FENOFIBRATE NANOCRYS (145 MG) 145 MG TABLET PO SCH (09:41)
[2018-10-27] MEDS: METOPROLOL SUCCINATE 25 MG TAB.SR.24H PO SCH (09:41)
[2018-10-27] MEDS: ZIPRASIDONE 20 MG CAPSULE PO SCH ×2 (09:42→17:19)
[2018-10-27] MEDS: Z GUARD REMEDY 2 OZ OINT TP SCH (09:42)
[2018-10-27] MEDS: GABAPENTIN 400 MG CAPSULE PO SCH ×3 (09:42→17:19)
[2018-10-27] MEDS ORDERED: Magnesium 1GM/D5W 100ML PREMIX 100 ML IV SCH (11:00)
[2018-10-27] MEDS: ACETAMINOPHEN 325 MG TABLET PO PRN ×2 (12:56→20:44)
[2018-10-27 16:46] LABS: CALCIUM, SERUM 8.2 mg/dL (8.5-10.1); CREATININE 1.2 mg/dL (0.6-1.3); POTASSIUM 3.4 mmol/L (3.5-5.1)
--- NOTE | 2018-10-27 17:24 | NUR ---
lasix 40 mg IV scheduled at 1600 given at 1720.. extra lasix dose entered by pharmacy entered as non administered due to duplication of order
[2018-10-27] MEDS ORDERED: FUROSEMIDE 40 MG/4 ML VIAL IV SCH (17:30)
[2018-10-27] MEDS: IV NS 0.9% 1,000 ML IV PRN (18:10)
--- NOTE | 2018-10-27 20:00 | NUR ---
DIP LUBE OPERATOR NOTE RECEIVED PT INTUBATED AND SEDATED. ETT 7.0 AND 24 @ THE LIP. ON MECH VENT WITH SETTINGS TOLERATING WELL. KEPT HOB ELEVATED AND ON ASPIRATION PRECAUTIONS. NO DISTRESS OR DISCOMFORT NOTED. ON TELE ST HR 114. IV BHARATHI MIDLINE CLEAN WITH DIPRIVAN AND INSULIN DRIP INFUSING. LFA SL GETTING NS @75 ML/HR. BILATERAL SOFT WRIST RESTRAINTS IN PLACE. PT ALSO GETTING KCL 10 MEQ ORDERED. DEAL CATH INTACT AND PATENT DRAINING YELLOWISH COLOR URINE. REPOSITION HER FOR SKIN MANAGEMENT. SIDE RAILS UP X 3 AND CONTINUE TO MONITOR HER. WILL CONTINUE TO MONITOR.
--- NOTE | 2018-10-27 20:07 | NUR ---
PT RCVD ORALLY INTUBATED VIA ETT #7.0, 24CM @ THE LIP ON THE VENT WITH NOTED SETTINGS, AC 18,550,40% PEEP 5. BILATERAL B/S HEARD ON AUSCULTATION. PT IS SEDATED. SUCTIONED SMALL AMOUNT OF WHITE THICK SECRETIONS . NO RESPIRATORY DISTRESS NOTED AT THIS TIME. ALARMS ARE SET AND AUDIBLE, VENT PLUGGED INTO RED OUTLET. AMBU BAG BEDSIDE. WILL CONTINUE TO MONITOR CLOSELY
--- NOTE | 2018-10-27 20:44 | NUR ---
LOAN REPRESENTATIVE NOTE TEMP 101.4, BODY COOLING MEASUREMENT APPLIED. ALSO GIVEN, TYLENOL 650 MG VIA NGT. CONTINUE TO MONITOR.
[2018-10-27] MEDS: ATORVASTATIN 40 MG TABLET PO SCH (21:25)
--- NOTE | 2018-10-27 21:45 | NUR ---
PAINT SPRAY INSPECTOR NOTE TEMP CAME DOWN TO 100.2. CONTINUE TO MONITOR
[2018-10-28] VITALS (39 sets, daily range): BP systolic 84–132; BP diastolic 48–79
--- NOTE | 2018-10-28 | NUR ---
WEED BURNER NOTE PT COVERTED FROM SR TO A FIB UNCONTROLLED AT THIS TIME HR IN 130'S PLUS.
[2018-10-28] MEDS: BLOOD SUGAR DIAGNOSTIC 1 EACH STRIP IN SCH ×17 (00:10→18:00)
--- NOTE | 2018-10-28 00:32 | NUR ---
AIR CONDITIONING TECHNICIAN NOTE PT CONVERTED BACK TO SR WITH INVERTED T WAVE HR 90.
[2018-10-28] MEDS: PROPOFOL 100 ML IV PRN ×4 (03:44→22:05)
[2018-10-28 04:41] LABS: BASOPHILS # (AUTO) 0.1 /CMM (0.0-0.2); BASOPHILS % (AUTO) 0.4 % (0.0-2.0); EOSINOPHILS % (AUTO) 0.7 % (0.0-6.0); HEMATOCRIT 30 % (33-45); HEMOGLOBIN 9.6 g/dL (11.5-14.8); LYMPHOCYTES # (AUTO) 2.7 /CMM (0.8-4.8); LYMPHOCYTES % (AUTO) 20.5 % (20.0-44.0); MEAN CORPUSCULAR HGB CONC 33 g/dl (31.0-36.0); MEAN CORPUSCULAR VOLUME 91 fL (82-100); MONOCYTES # (AUTO) 0.9 /CMM (0.1-1.30); NEUTROPHILS # (AUTO) 9.4 /CMM (1.8-8.9); NEUTROPHILS % (AUTO) 71.4 % (43.0-81.0); PLATELET COUNT (AUTO) 129 /CMM (150-450); RED BLOOD CELL COUNT(AUTO) 3.26 MIL/uL (4.0-5.2); WHITE BLOOD COUNT (AUTO) 13.1 K/uL (4.3-11.0)
[2018-10-28 05:20] LABS: ALBUMIN 2.2 g/dL (3.4-5.0); BILIRUBIN,TOTAL 0.4 mg/dL (0.2-1.0); CALCIUM, SERUM 8.3 mg/dL (8.5-10.1); CREATININE 1.3 mg/dL (0.6-1.3); MAGNESIUM 1.4 mg/dL (1.8-2.4); PHOSPHORUS 3.4 mg/dL (2.5-4.9); POTASSIUM 3.6 mmol/L (3.5-5.1)
[2018-10-28] MEDS: FOSPHENYTOIN SODIUM PE 100 MG/2 ML VIAL IV SCH ×2 (05:35→12:53)
[2018-10-28] MEDS: PIPERACILLIN /TAZOBACTAM 2.25 G in IV D5W 50 ML IV SCH ×4 (05:36→23:08)
--- NOTE | 2018-10-28 06:43 | NUR ---
PURE PAK MACHINE OPERATOR NOTE PT IN BED SEDATED. NO DISTRESS OR DISCOMFORT NOTED. NO S/S OF PAIN NOTED. IVF NS AT 75 ML/HR, INSULIN 1 UNIT/HR, DIPRIVAN 40 MCG/KG/MIN, INFUSING WELL, NO S/S OF INFILTRATION NOTED. NO FEVER AT THIS TIME. REPOSITION HER Q2H, KEPT HER DRY AND CLEAN. F/C INTACT AND PATENT DRAINING YELLOWISH COLOR URINE. ON TELE MONITOR S T HR 106. BILATERAL WRIST RESTRAINTS ON. SKIN WNL. SIDE RAILS UP X 3 AND CALL LIGHT WITHIN REACH. VSS. WILL ENDORSE TO DAY SHIFT NURSE FOR CONTINUE TO CARE.
[2018-10-28] MEDS: ZIPRASIDONE 20 MG CAPSULE PO SCH ×2 (08:27→18:49)
[2018-10-28] MEDS: FENOFIBRATE NANOCRYS (145 MG) 145 MG TABLET PO SCH (08:27)
[2018-10-28] MEDS: DULOXETINE HCL 30 MG CAPSULE.DR PO SCH ×2 (08:27→18:46)
[2018-10-28] MEDS: GABAPENTIN 400 MG CAPSULE PO SCH ×3 (08:27→18:45)
[2018-10-28] MEDS: ASPIRIN EC 325 MG TABLET.DR PO SCH (08:28)
[2018-10-28] MEDS: DOCUSATE SODIUM 100 MG CAPSULE PO SCH ×2 (08:28→18:46)
[2018-10-28] MEDS: PANTOPRAZOLE 40 MG TABLET.DR PO SCH (08:28)
[2018-10-28] MEDS: METOPROLOL SUCCINATE 25 MG TAB.SR.24H PO SCH (08:29)
[2018-10-28] MEDS: DOXAZOSIN MESYLATE (1 MG) 1 MG TABLET PO SCH (08:29)
[2018-10-28] MEDS: Z GUARD REMEDY 2 OZ OINT TP SCH (08:30)
[2018-10-28] MEDS: Magnesium 1GM/D5W 100ML PREMIX 100 ML IV SCH ×2 (10:00→10:48)
[2018-10-28] MEDS: IV NS 0.9% 1,000 ML IV PRN (10:17)
[2018-10-28] MEDS: AMIODARONE HCL 200 MG TABLET PO SCH ×3 (10:50→18:45)
[2018-10-28] MEDS: ENOXAPARIN SODIUM 100 MG/ML DISP.SYRIN SQ SCH ×2 (10:53→20:27)
[2018-10-28] MEDS: ACETAMINOPHEN 650 MG/20.3 ML UDC NG PRN (11:48)
[2018-10-28] MEDS ORDERED: Magnesium 1GM/D5W 100ML PREMIX 100 ML IV SCH (12:30)
[2018-10-28 16:39] LABS: CALCIUM, SERUM 7.6 mg/dL (8.5-10.1); CREATININE 1.3 mg/dL (0.6-1.3); POTASSIUM 3.2 mmol/L (3.5-5.1)
[2018-10-28] MEDS ORDERED: DEXTROSE 50%-WATER 50 ML DISP.SYRIN IV PRN (18:00)
[2018-10-28] MEDS ORDERED: IV D5/ 0.9% NACL 1,000 ML IV PRN (18:00)
[2018-10-28] MEDS: POTASSIUM CL. PREMIX PERIPHER. 50 ML IV SCH ×4 (18:44→22:31)
[2018-10-28] MEDS: FOSPHENYTOIN SODIUM PE IV SCH (18:49)
[2018-10-28] MEDS: NS 0.9% IV SCH (18:49)
--- NOTE | 2018-10-28 19:19 | NUR ---
PT RCVD ORALLY INTUBATED VIA ETT #7.0, 24CM @ THE LIP ON THE VENT WITH NOTED SETTINGS, AC 18,550,40% PEEP 5. BILATERAL B/S HEARD ON AUSCULTATION. PT IS SEDATED. SUCTIONED MODERATE AMOUNT OF PINK TINGED SECRETIONS . NO RESPIRATORY DISTRESS NOTED AT THIS TIME. ALARMS ARE SET AND AUDIBLE, VENT PLUGGED INTO RED OUTLET. AMBU BAG BEDSIDE. WILL CONTINUE TO MONITOR CLOSELY
--- NOTE | 2018-10-28 20:00 | NUR ---
RN/ICU-RECEIVED PT. FROM DAYSHIFT ,ON THE BED .PT. IS POST SEDATED ON DIPRIVAN DRIP AT 25MCG/KG/MIN. ON THE VENT PER ETT, ON AC MODE, SATS.-100%, EKG SR- 79, BP-88/58. AFEBRILE. NO S/S OF PAIN OR DISTRESS.. PT. IS A FULL CODE.
[2018-10-28] MEDS ORDERED: PHENYTOIN SODIUM IV 50 MG/ML VIAL IV SCH (21:00)
[2018-10-28] MEDS: ATORVASTATIN 40 MG TABLET PO SCH (22:41)
[2018-10-28] MEDS: INSULIN GLARGINE, 100 UNIT/ML CARTRIDGE SQ SCH (22:43)
[2018-10-29] VITALS (70 sets, daily range): BP systolic 73–150; BP diastolic 46–90
[2018-10-29] MEDS: INSULIN REGULAR, HUMAN 100 UNIT/ML 3 ML VIAL SQ PRN ×4 (01:14→17:13)
[2018-10-29 04:48] LABS: BASOPHILS % (AUTO) 0.4 % (0.0-2.0); HEMATOCRIT 29 % (33-45); HEMOGLOBIN 9.2 g/dL (11.5-14.8); LYMPHOCYTES # (AUTO) 1.5 /CMM (0.8-4.8); LYMPHOCYTES % (AUTO) 13.4 % (20.0-44.0); MEAN CORPUSCULAR HGB CONC 32 g/dl (31.0-36.0); MEAN CORPUSCULAR VOLUME 92 fL (82-100); MONOCYTES # (AUTO) 0.6 /CMM (0.1-1.30); MONOCYTES % (AUTO) 5.2 % (2.0-12.0); NEUTROPHILS # (AUTO) 8.7 /CMM (1.8-8.9); PLATELET COUNT (AUTO) 121 /CMM (150-450); RED BLOOD CELL COUNT(AUTO) 3.16 MIL/uL (4.0-5.2)
[2018-10-29 04:53] LABS: PHENYTOIN (DILANTIN) 8.3 ug/ml (10.0-20.0)
[2018-10-29 05:01] LABS: CALCIUM, SERUM 8.4 mg/dL (8.5-10.1); CREATININE 1.2 mg/dL (0.6-1.3); POTASSIUM 3.8 mmol/L (3.5-5.1)
[2018-10-29] MEDS: PROPOFOL 100 ML IV PRN (05:18)
[2018-10-29] MEDS: NS 0.9% IV SCH ×2 (05:19→17:43)
[2018-10-29] MEDS: FOSPHENYTOIN SODIUM PE IV SCH ×2 (05:19→17:43)
[2018-10-29] MEDS: BLOOD SUGAR DIAGNOSTIC 1 EACH STRIP IN SCH ×4 (05:25→17:13)
[2018-10-29] MEDS: PIPERACILLIN /TAZOBACTAM 2.25 G in IV D5W 50 ML IV SCH ×3 (05:42→17:11)
--- NOTE | 2018-10-29 07:00 | NUR ---
RN NOTES RECEIVED PT ON BED, ORALLY INTUBATED , ETT #7.0, 24CM @ THE LIP ON THE VENT WITH NOTED SETTINGS, AC 18,550,40% PEEP 5. TOLERATING VENT SETTING WELL, ON TELE HR IN 80'S , SR, ON PROPOFOL AT 25MCG/KG/MIN RUNNING VIA R UPPER ARM MILD LINE , D5NS AT 75CC/HR RUNNING VIA L AC IV SITE , NO COMPLICATION NOTED AT THE IV SITES , DEAL DRINING TO GRAVITY , SR UP x3, CALL LIGHT WITHIN EASY REACH, BED LOCKED AND IN LOWEST POSITION ,WILL CONTINUE TO MONITOR CLOSELY
[2018-10-29] MEDS: ASPIRIN EC 325 MG TABLET.DR PO SCH (08:16)
[2018-10-29] MEDS: GABAPENTIN 400 MG CAPSULE PO SCH ×3 (08:17→16:28)
[2018-10-29] MEDS: DULOXETINE HCL 30 MG CAPSULE.DR PO SCH ×2 (08:17→16:28)
[2018-10-29] MEDS: DOCUSATE SODIUM 100 MG CAPSULE PO SCH (08:17)
[2018-10-29] MEDS: FENOFIBRATE NANOCRYS (145 MG) 145 MG TABLET PO SCH (08:18)
[2018-10-29] MEDS: PANTOPRAZOLE 40 MG TABLET.DR PO SCH (08:18)
[2018-10-29] MEDS: AMIODARONE HCL 200 MG TABLET PO SCH ×3 (08:18→16:27)
[2018-10-29] MEDS: DOXAZOSIN MESYLATE (1 MG) 1 MG TABLET PO SCH (08:19)
[2018-10-29] MEDS: METOPROLOL SUCCINATE 25 MG TAB.SR.24H PO SCH (08:19)
[2018-10-29] MEDS: Z GUARD REMEDY 2 OZ OINT TP SCH (08:22)
[2018-10-29] MEDS: POTASSIUM CHLORIDE 20 MEQ POWDER PACKET GT SCH ×3 (08:22→09:58)
[2018-10-29] MEDS: FUROSEMIDE 40 MG/4 ML VIAL IV SCH ×2 (08:22→11:47)
[2018-10-29] MEDS: ZIPRASIDONE 20 MG CAPSULE PO SCH ×2 (08:31→16:28)
--- NOTE | 2018-10-29 09:01 | NUR ---
RT PT RECEIVED ORALLY INTUBATED WITH A 7.0 ETT SECURED AT 23CM AT THE LIP LINE. PT IS CURRENTLY OFF SEDATION AND IS AWAKE AND ALERT FOLLOWING COMMANDS. VENT CHANGES MADE FOR WEANING PER DR. BALTAZAR ORDERS. PT TOLERATING WELL, NO RESPIRATORY DISTRESS NOTED AT THIS TIME. PT SX'D MODERATE THICK PALE YELLOW SECRETIONS. NO RESPIRATORY DISTRESS NOTED AT THIS TIME, WILL CONTINUE TO MONITOR. Addendum: 10/29/18 at 1501 by SAAD WILDE RT Amended: Links added.
[2018-10-29] MEDS: ACETAMINOPHEN 650 MG/20.3 ML UDC NG PRN (09:19)
--- NOTE | 2018-10-29 10:00 | NUR ---
RN NOTES MODERATE AMOUNT OF BLOODY SECRETION FROM ORAL TUBE SUCTIONING NOTED, DR BALTAZAR NOTIFED, CONTINUE TO MONITOR.
[2018-10-29 10:13] LABS: ABG BASE EXCESS -7.4 mmol/L; ABG OXYGEN SATURATION 94.3 % (92.0-98.5); ABG PCO2 29.4 mmHg (35.0-45.0); ABG PH 7.373 (7.350-7.450); AaDO2 170.4 mmHg; COHb 0.4 % (0.5-1.5); MetHb 0.3 % (0.0-1.5); O2Hb 93.6 % (94.0-97.0); PEEP,BG 5 cm H2O; SITE, ABG Right Radial; VENT MODE, BG SIMV 4 / PS 12; VT, ABG 550 mL
[2018-10-29] MEDS ORDERED: DC PROPOFOL WHEN EXTUBATED XX PRN (11:00)
--- NOTE | 2018-10-29 13:00 | NUR ---
RN NOTES PT ON STILL ON SIMV MODE , TOLERATING WELL, O2 SAT 99% , CONTINUE TO MONITOR .
[2018-10-29] MEDS: CITRIC ACID/SODIUM CITRATE (BICITRA)15 ML UDC PO SCH ×3 (14:12→21:30)
--- NOTE | 2018-10-29 15:13 | NUR ---
RT EXTUBATION HELD FOR TODAY DUE TO SUCTIONING MODERATE TO LARGE AMOUNTS OF BLOOD CLOTS FROM WITHIN THE LUNGS THAT HAVE NOT CLEARED. DR. BALTAZAR AND RN AWARE, WILL CONTINUE WITH EXTUBATION IN THE MORNING IF SECRETIONS HAVE CLEARED WITH ABG POST EXTUBATION. PT WILL REMAIN ON NOTED SETTINGS PER DR. BALTAZAR REQUEST. Addendum: 10/29/18 at 1536 by SAAD WILDE RT Amended: Links added.
--- NOTE | 2018-10-29 18:00 | NUR ---
RN NOTES PT TOLERATING SIMV MODE WELL , CLAM AND AT REST , SR ON TELE, SAY DRINING TO GRAVITY WELL,SR UP x3, WILL ENDORSE TO COMBINE DRIVER NURSE FOR CONTINUITY OF CARE .
--- NOTE | 2018-10-29 19:37 | NUR ---
LONG TERM. INITIAL ASSESSMENT. RECEIVED THE PT REST ON THE BED. ORALLY INTUBATED. PT AWAKE, LETHARGY. ETT#7, SIMV4, LIP 24, TV 550,FIO2 40%, PEEP 5. SAT 100%. NO ACUTE DISTRESS NOTED. DISH MAKER SHOWING NSR. IV RT UPPER ARM MID LINE. SALINE LOCK. HOB ELEVATED. FC PATENT, URINE DRAINING, WILL CONTINUE TO MONITOR VITALS.
--- NOTE | 2018-10-29 20:10 | NUR ---
RT NOTE PATIENT RECEIVED ON SIMV 4, 550, 40%, +, PS 12. PATIENT AWAKE/ALERT. ET TUBE @ 7.0 @ 24 LIP LINE. CUFF CHECKED VIA CHEMICAL PROCESS ANALYST. AMBU BAG @ HOB. ALARMS ON AND AUDIBLE. SX DONE, SMALL THIN BLOODY SECRETIONS NOTED. NO DISTRESS NOTED AT THIS TIME. WILL MONITOR T/O SHIFT. Addendum: 10/29/18 at 2146 by EZN AGUILAR RT Amended: Links added.
[2018-10-29] MEDS: ATORVASTATIN 40 MG TABLET PO SCH (21:31)
[2018-10-29] MEDS: INSULIN GLARGINE, 100 UNIT/ML CARTRIDGE SQ SCH (21:41)
[2018-10-30] VITALS (58 sets, daily range): BP systolic 69–201; BP diastolic 41–127
[2018-10-30] MEDS: BLOOD SUGAR DIAGNOSTIC 1 EACH STRIP IN SCH ×4 (00:30→17:01)
[2018-10-30] MEDS: PIPERACILLIN /TAZOBACTAM 2.25 G in IV D5W 50 ML IV SCH ×2 (00:30→05:45)
--- NOTE | 2018-10-30 03:50 | NUR ---
COUNCILLOR ABORIGINAL LAND COUNCIL. AM CARE, ORAL CARE, BED BATH GIVEN. LINEN CHANGED. REMAINING SAME VENTS ETTING TOLERATED WELL. SAT 98%. NO ACUTE DISTRESS NOTED. DOCUMENT EXAMINER SHOWING NSR, IV RT HAND MID LINE SALINE LOCK. HOB ELEVATED. FC PATENT URINE DRAINING. TURN AND REPOSITION Q2H. SIMV MODE PT TOLERATED WELL. WILL CONTINUE TO MONITOR VITALS.
[2018-10-30 05:00] LABS: CALCIUM, SERUM 8.7 mg/dL (8.5-10.1); POTASSIUM 3.4 mmol/L (3.5-5.1)
[2018-10-30 05:19] LABS: BASOPHILS % (AUTO) 0.4 % (0.0-2.0); EOSINOPHILS % (AUTO) 2.8 % (0.0-6.0); HEMATOCRIT 30 % (33-45); HEMOGLOBIN 9.6 g/dL (11.5-14.8); LYMPHOCYTES # (AUTO) 1.1 /CMM (0.8-4.8); LYMPHOCYTES % (AUTO) 11.3 % (20.0-44.0); MEAN CORPUSCULAR HGB CONC 32 g/dl (31.0-36.0); MEAN CORPUSCULAR VOLUME 92 fL (82-100); MONOCYTES # (AUTO) 0.7 /CMM (0.1-1.30); MONOCYTES % (AUTO) 7.1 % (2.0-12.0); NEUTROPHILS # (AUTO) 7.7 /CMM (1.8-8.9); NEUTROPHILS % (AUTO) 78.4 % (43.0-81.0); PLATELET COUNT (AUTO) 157 /CMM (150-450); RED BLOOD CELL COUNT(AUTO) 3.29 MIL/uL (4.0-5.2); WHITE BLOOD COUNT (AUTO) 9.8 K/uL (4.3-11.0)
[2018-10-30] MEDS: NS 0.9% IV SCH ×2 (05:44→18:07)
[2018-10-30] MEDS: FOSPHENYTOIN SODIUM PE IV SCH ×2 (05:44→18:07)
--- NOTE | 2018-10-30 05:51 | NUR ---
RT NOTE PATIENT STABLE T/O SHIFT ON CURRENT SIMV SETTINGS. PATIENT IS ALERT AND ABLE TO FOLLOW COMMANDS. SX DONE, SMALL THICK WHITE YELLOW SECRETIONS NOTED. NO DISTRESS NOTED. WILL ENDORSE TO NEXT SHIFT OF PATIENT'S STATUS.
[2018-10-30] MEDS: INSULIN REGULAR, HUMAN 100 UNIT/ML 3 ML VIAL SQ PRN ×3 (06:15→17:21)
[2018-10-30] MEDS: CLONIDINE HCL 0.1 MG TABLET PO PRN (06:54)
[2018-10-30] MEDS: ACETAMINOPHEN 650 MG/20.3 ML UDC NG PRN ×3 (06:54→21:58)
[2018-10-30] MEDS ORDERED: POTASSIUM CHLORIDE 20 MEQ POWDER PACKET NG SCH ×2 (07:30→09:00)
--- NOTE | 2018-10-30 08:00 | NUR ---
LIQUID LOADER OPENING NOTES RECEIVED PT FROM NIGHTSHIFT RN IN STABLE CONDITION. ETT NOTED WITH VENT SETTINGS ORDERED BY MD. PT TOLERATING V ENT SETTING WELL. PT SCHEDULED FOR EXTUBATION LATER THIS MORNING. PT SUCTIONS. SCANT AMOUNT OF CLEAR SECRETIONS NOTED. OGT TUBE NOTED TO BE PATENT AND INTACT. PLACEMENT VERIFIED VIA AUSCULTATION. TUBE CLAMPED AT THIS TIME. MULTIPLE IVS NOTED TO BE PATENT AND INTACT. PT NOTED WITH A LEFT AC 18G, LEFT HAND 22G, AND A RIGHT UPPER ARM MIDLINE. DEAL CATHETER NOTED TO BE INTACT AND DRAINING CLEAR, YELLOW URINE,. BED IN LOW LOCKED POSITION, SIDE RAILS UP X3, CALL LIGHT WITHIN REACH. WILL CONTINUE TO MONITOR
[2018-10-30] MEDS: NITROGLYCERIN 30 GM TUBE TP SCH ×2 (08:34→21:00)
[2018-10-30] MEDS: CITRIC ACID/SODIUM CITRATE (BICITRA)15 ML UDC PO SCH ×4 (09:25→21:56)
[2018-10-30] MEDS: DOXAZOSIN MESYLATE (1 MG) 1 MG TABLET PO SCH (09:26)
[2018-10-30] MEDS: DULOXETINE HCL 30 MG CAPSULE.DR PO SCH ×2 (09:26→16:53)
[2018-10-30] MEDS: AMIODARONE HCL 200 MG TABLET PO SCH ×3 (09:26→16:54)
[2018-10-30] MEDS: ZIPRASIDONE 20 MG CAPSULE PO SCH ×2 (09:26→16:53)
[2018-10-30] MEDS: PANTOPRAZOLE 40 MG TABLET.DR PO SCH (09:27)
[2018-10-30] MEDS: FENOFIBRATE NANOCRYS (145 MG) 145 MG TABLET PO SCH (09:28)
[2018-10-30] MEDS: METOPROLOL SUCCINATE 25 MG TAB.SR.24H PO SCH (09:28)
[2018-10-30] MEDS: GABAPENTIN 400 MG CAPSULE PO SCH ×3 (09:28→16:52)
[2018-10-30] MEDS: Z GUARD REMEDY 2 OZ OINT TP SCH (09:28)
[2018-10-30] MEDS: ASPIRIN EC 325 MG TABLET.DR PO SCH (09:28)
[2018-10-30] MEDS: ENOXAPARIN SODIUM 40 MG/0.4 ML DISP.SYRIN SQ SCH (09:35)
[2018-10-30 09:46] LABS: ABG OXYGEN SATURATION 82.6 % (92.0-98.5); ABG PCO2 32.6 mmHg (35.0-45.0); ABG PH 7.405 (7.350-7.450); AaDO2 168.9 mmHg; COHb 0.9 % (0.5-1.5); MetHb 0.3 % (0.0-1.5); O2Hb 81.6 % (94.0-97.0); SITE, ABG Right Radial; VENT MODE, BG N/C 4L/MIN
--- NOTE | 2018-10-30 10:45 | NUR ---
STAGE ELECTRICIAN NOTES: EXTUBATION PT WAS EXTUBATED AT 0816 THIS AM. ABG OBTAINED. PELEG AT BEDSIDE AND MADE AWARE OF RESULTS MADE AWARE OF RESULTS. PT BEGAN TO EXPERIENCE RESPIRATORY DISTRESS 2HRS AFTER. PT BECAME TACHYPNEIC AND DIAPHORETIC. 1029: PT REINTUBATED PER DR. BALTAZAR'S ORDER. ETT 7.5 AC 14, TV 550, FIO2 100% PEEP 8. OGT TUBE INSERTED AT THIS TIME. PLACEMENT VERIFIED VIA CXR. PT SATING WELL AT 100%.
[2018-10-30] MEDS: IV D5/0.45 NACL 1,000 ML IV PRN (11:31)
[2018-10-30] MEDS ORDERED: PROPOFOL 100 ML IV PRN (12:00)
[2018-10-30 12:07] LABS: ABG OXYGEN SATURATION 90.1 % (92.0-98.5); ABG PH 7.306 (7.350-7.450); ABG PO2 70.9 mmHg (75.0-100.0); AaDO2 606.1 mmHg; COHb 0.8 % (0.5-1.5); MetHb 0.3 % (0.0-1.5); O2Hb 89.1 % (94.0-97.0); PEEP,BG 5 cm H2O; SITE, ABG Right Radial; VENT MODE, BG AC 14 500 100% +5; VT, ABG 500 mL
[2018-10-30] MEDS: PROPOFOL 100 ML IV PRN ×2 (12:11→23:55)
[2018-10-30] MEDS: PIPERACILLIN /TAZOBACTAM 3.375 G in IV D5W 50 ML IV SCH ×3 (12:16→23:32)
--- NOTE | 2018-10-30 12:30 | NUR ---
REPEAT ABG DONE . DR. BALTAZAR MADE AWARE OF RESULTS. VENT SETTINGS CHANGED. HOB ELEVATED. PT TOLERATING WELL. WILL CONTINUE TO MONITOR
--- NOTE | 2018-10-30 13:30 | NUR ---
ICU/RN: Oral temp at 102.3; cooling measures and blanket in place. Rectal temp reading 103, pt diaphoretic. Cole Escobar WASHROOM OPERATOR notified with orders for repeat cultures and labs. Noted and carried out.
--- NOTE | 2018-10-30 15:00 | NUR ---
ICU/RN: Received phone call from eduardo Alonzo. States that daughter, Aislinn Oh is DPOA and Abhishek (next of kin on chart) is pt's uncle. Clinton to bring YEN paperwork tomorrow.
[2018-10-30 15:01] LABS: BASOPHILS % (AUTO) 0.3 % (0.0-2.0); EOSINOPHILS % (AUTO) 0.1 % (0.0-6.0); HEMATOCRIT 32 % (33-45); HEMOGLOBIN 10.1 g/dL (11.5-14.8); LYMPHOCYTES % (AUTO) 9.9 % (20.0-44.0); MEAN CORPUSCULAR HGB CONC 32 g/dl (31.0-36.0); MEAN CORPUSCULAR VOLUME 92 fL (82-100); MONOCYTES # (AUTO) 0.7 /CMM (0.1-1.30); MONOCYTES % (AUTO) 7.4 % (2.0-12.0); NEUTROPHILS % (AUTO) 82.3 % (43.0-81.0); PLATELET COUNT (AUTO) 167 /CMM (150-450); RED BLOOD CELL COUNT(AUTO) 3.44 MIL/uL (4.0-5.2); WHITE BLOOD COUNT (AUTO) 9.7 K/uL (4.3-11.0)
[2018-10-30 15:08] LABS: CALCIUM, SERUM 8.2 mg/dL (8.5-10.1); CREATININE 1.6 mg/dL (0.6-1.3); POTASSIUM 4.1 mmol/L (3.5-5.1)
[2018-10-30] MEDS ORDERED: GLUCERNA 1.2 1,000 ML BOTTLE NG PRN (17:30)
--- NOTE | 2018-10-30 18:04 | NUR ---
RT END OF THE SHIFT REPORT; PT. 68 Y OLD FEMALE ORALLY INTUBATED ON VENT WITH NOTED SETTINGS. AWAKE @[address] BALTAZAR ORDER AND PLACED AT 4L/MIN O2 @[address] BALTAZAR ETT# 7.5 @ 23 CM SECURED AT THE LIP. REMAIN STABLE. PT. TOLERATING VENT SETTINGS.CHANGES DONE BY DR. GIOVANNY COATES SUX'D FOR SMALL AMT OF WHITE SECRETIONS. EQUAL CHEST RISE NOTED. CUFF ANALYTICS SENIOR MANAGER. VENT ALARMS SET AND AUDIBLE. AMBU BAG AT BEDSIDE. VENT PLUGGED INTO RED OUTLET. WILL CONTINUE TO MONITOR. HME CHANGED. REPORT WILL PASS TO PM SHIFT. Addendum: 10/30/18 at 1808 by KEVIN MADRIGAL RT Amended: Links added.
--- NOTE | 2018-10-30 20:00 | NUR ---
horticulture superintendent notes received pts and report from Ed rn nite shift Pts is orally intubated on vent on ac settings of rate 14 tv 550 fio2 100% peep of 8 , with ett #7.5 @23cm secured at the lip, settings well tolerated no sob no distress noted v/s bp stable except temperature temp is 102 , cooling blanket applied sponge bath given cooling measures applied , acetamenophen given as ordered , turned and repositioned , f/c intact and patent draining with yellowish urine output .
[2018-10-30] MEDS: GLUCERNA 1.2 1,000 ML BOTTLE NG PRN (20:10)
--- NOTE | 2018-10-30 21:00 | NUR ---
agriculture instructor notes received pts with ogt glucerna at 20cc/hr well tolerated ,goal to 40cc/hr no residual noted.
[2018-10-30] MEDS: ATORVASTATIN 40 MG TABLET PO SCH (21:56)
--- NOTE | 2018-10-30 22:00 | NUR ---
agriculture mechanic notes pts on ogt with glucerna 1.2 increase rate to 30cc/hr well tolerated by pts no residual noted.
--- NOTE | 2018-10-30 22:00 | NUR ---
horticulturalist notes blood sugar at 10pm is 219 mg/dl - lantus 19 units given as ordered.
[2018-10-30] MEDS: INSULIN GLARGINE, 100 UNIT/ML CARTRIDGE SQ SCH (22:41)
--- NOTE | 2018-10-30 23:55 | NUR ---
picu nurse notes pts noted with milt agitation propofol 5mcg/kg/min initiated , pts temp drop down to 100.2 F, v/s stable no sob no distress pts noow on 60% fio2 sating 100 %.all needs attended too call light within reach kept pts clean dry and comfortable.
[2018-10-31] VITALS (55 sets, daily range): BP systolic 90–143; BP diastolic 46–96
--- NOTE | 2018-10-31 00:20 | NUR ---
manager multicultural notes Pts still noted with mild agitation ,propofol drip increase to 10ncg/kg/min continue to monitor , no ase noted v/s stable pts noted afebrile,gogt glucerna 1.2 increase to 40cc/hr well tolerated.no residual noted.
[2018-10-31] MEDS: BLOOD SUGAR DIAGNOSTIC 1 EACH STRIP IN SCH ×5 (00:37→23:17)
[2018-10-31] MEDS: INSULIN REGULAR, HUMAN 100 UNIT/ML 3 ML VIAL SQ PRN ×5 (00:59→23:15)
--- NOTE | 2018-10-31 01:00 | NUR ---
rn picu notes pts temperature this time is 98.4
--- NOTE | 2018-10-31 01:01 | NUR ---
icu manager notes blood sugar for 12mn is 213 mg /dl 4 units of regular insulin given per sliding scale
[2018-10-31] MEDS: IV D5/0.45 NACL 1,000 ML IV PRN (04:40)
[2018-10-31] MEDS: PIPERACILLIN /TAZOBACTAM 3.375 G in IV D5W 50 ML IV SCH ×4 (05:12→23:16)
[2018-10-31 05:13] LABS: CREATININE 1.4 mg/dL (0.6-1.3); POTASSIUM 3.3 mmol/L (3.5-5.1)
[2018-10-31 05:21] LABS: BASOPHILS % (AUTO) 0.5 % (0.0-2.0); EOSINOPHILS % (AUTO) 2.2 % (0.0-6.0); HEMATOCRIT 28 % (33-45); LYMPHOCYTES # (AUTO) 1.8 /CMM (0.8-4.8); LYMPHOCYTES % (AUTO) 17.7 % (20.0-44.0); MEAN CORPUSCULAR HGB CONC 32 g/dl (31.0-36.0); MEAN CORPUSCULAR VOLUME 92 fL (82-100); MONOCYTES # (AUTO) 0.8 /CMM (0.1-1.30); MONOCYTES % (AUTO) 8.2 % (2.0-12.0); NEUTROPHILS # (AUTO) 7.1 /CMM (1.8-8.9); NEUTROPHILS % (AUTO) 71.4 % (43.0-81.0); PLATELET COUNT (AUTO) 154 /CMM (150-450); RED BLOOD CELL COUNT(AUTO) 3.04 MIL/uL (4.0-5.2); WHITE BLOOD COUNT (AUTO) 9.9 K/uL (4.3-11.0)
[2018-10-31] MEDS: FOSPHENYTOIN SODIUM PE IV SCH ×2 (06:00→18:08)
[2018-10-31] MEDS: NS 0.9% IV SCH ×2 (06:00→18:08)
[2018-10-31] MEDS: PROPOFOL 100 ML IV PRN ×3 (06:47→18:14)
--- NOTE | 2018-10-31 07:47 | NUR ---
INITIAL CENTRAL SUPPLY TECHNICIAN SUPERVISOR NOTE RCVD PT AWAKE AND ALERT, ABLE TO FOLLOW SIMPLE COMMANDS. INTUBATED TOLERATING ORDERED VENT SETTINGS WELL. IT HELP DESK MANAGER RESTRAINTS IN PLACE, CIRCULATION CHECKS DONE. SEDATION ADJUSTED TO PT'S COMFORT. OG-TUBE PLACEMENT VERIFIED BY AUSCULTATION/ASPIRATION, ABOUT 5ML RESIDUAL OBTAINED. MUCOID LOOKING BM ON ASSESSMENT. DEAL TO GRAVITY DRAINING YELLOW URINE. LEFT AC #18 LEAKING UPON FLUSHING THIS WAS DISCONTINUED, REMAINING IV SITES C/D/I/PATENT. NO S/O INFILTRATION/PHLEBITIS OBSERVED UPON FLUSHING. WILL CONTINUE TO MONITOR PT FOR SAFETY AND COMFORT. BED IN LOW AND LOCKED POSITION. CALL LIGHT WITHIN REACH. HEAD OF BED ELEVATED AT 30 DEGREES.
--- NOTE | 2018-10-31 07:50 | NUR ---
OCEAN FORWARDER NOTE SEDATION VACATION DONE, PT ABLE TO FOLLOW COMMANDS, RE-ORIENTED TO PLACE, SITUATION, TIME. REMAINS STABLE. WILL CONTINUE TO MONITOR.
[2018-10-31 08:15] LABS: ABG BASE EXCESS -2.5 mmol/L; ABG OXYGEN SATURATION 96.9 % (92.0-98.5); ABG PCO2 39.7 mmHg (35.0-45.0); ABG PH 7.372 (7.350-7.450); AaDO2 269.1 mmHg; COHb 0.1 % (0.5-1.5); MetHb 0.1 % (0.0-1.5); O2Hb 96.7 % (94.0-97.0); PEEP,BG 8 cm H2O; SITE, ABG Right Radial; VT, ABG 550 mL
[2018-10-31] MEDS: METOPROLOL SUCCINATE 25 MG TAB.SR.24H PO SCH (09:00)
[2018-10-31] MEDS: NITROGLYCERIN 30 GM TUBE TP SCH ×2 (09:00→21:00)
[2018-10-31] MEDS: DOXAZOSIN MESYLATE (1 MG) 1 MG TABLET PO SCH (09:00)
[2018-10-31] MEDS: CITRIC ACID/SODIUM CITRATE (BICITRA)15 ML UDC PO SCH ×4 (09:32→21:04)
[2018-10-31] MEDS: ASPIRIN 325 MG TABLET PO SCH (09:32)
[2018-10-31] MEDS: FENOFIBRATE NANOCRYS (145 MG) 145 MG TABLET PO SCH (09:32)
[2018-10-31] MEDS: ZIPRASIDONE 20 MG CAPSULE PO SCH ×2 (09:32→16:23)
[2018-10-31] MEDS: AMIODARONE HCL 200 MG TABLET PO SCH ×3 (09:32→16:23)
[2018-10-31] MEDS: NEUTRA PHOS 1 POWD.PACKET GT SCH ×2 (09:32→16:23)
[2018-10-31] MEDS: PANTOPRAZOLE 40 MG/PACK PACK GT SCH (09:32)
[2018-10-31] MEDS: GABAPENTIN 400 MG CAPSULE PO SCH ×3 (09:32→16:23)
[2018-10-31] MEDS: ACETAMINOPHEN 650 MG/20.3 ML UDC NG PRN (09:32)
[2018-10-31] MEDS: DULOXETINE HCL 30 MG CAPSULE.DR PO SCH (09:33)
[2018-10-31] MEDS: ENOXAPARIN SODIUM 40 MG/0.4 ML DISP.SYRIN SQ SCH (09:48)
--- NOTE | 2018-10-31 09:51 | NUR ---
MEDICATION AUDIOLOGY DOCTOR NOTE PT'S BP MEDS WERE HELD THIS AM DUE TO BORDERLINE LOW BP. KAY DIRECTOR IMAGING INFORMED. WILL CONTINUE TO MONITOR.
[2018-10-31] MEDS: Z GUARD REMEDY 2 OZ OINT TP SCH (10:21)
[2018-10-31] MEDS ORDERED: POTASSIUM CHLORIDE 20 MEQ POWDER PACKET GT SCH (11:00)
--- NOTE | 2018-10-31 18:53 | NUR ---
FORDER OPERATOR NOTE PT REMAINS STABLE, SEDATED, INTUBATED TOLERATING ORDERED SETTINGS WELL. SR ON MONITOR. OG-TUBE PLACEMENT VERIFIED BY AUSCULTATION/ASPIRATION OF GASTRIC CONTENTS. DEAL TO GRAVITY DRAINING YELLOW URINE. IV SITES C/D/I/PATENT. NO S/O INFILTRATION/PHLEBITIS OBSERVED UPON FLUSHING. WILL CONTINUE TO MONITOR PT FOR SAFETY AND COMFORT. BED IN LOW AND LOCKED POSITION. CALL LIGHT WITHIN REACH. HEAD OF BED ELEVATED AT 30 DEGREES.
--- NOTE | 2018-10-31 19:00 | NUR ---
RECEIVED PT IN NO ACUTE DISTRESS IN BED. PT IS SEDATED WITH DIPRIVAN. PT IS ON MECHANICAL VENT VIA ETT. ETT IS 7.5/ AT THE LIP. PT TOLERATING VENT SETTING WELL WITH AC 14, TV 550, FIO2 40%, 5 PEEP. PT IS ON TELE WITH SR @ PAC ON THE MONITOR. PT HAS OG TUBE THAT IS CLEAN DRY INTACT AND PATENT WITH FREE WATER FLUSH AND GLUCERNIA @ 40ML/HR AND TOLERATING WELL. PT HAS F/C THAT IS CLEAN DRY INTACT AND PATENT WITH YELLOW URINE DRAINING. PT HAS BHARATHI MIDLINE THAT IS CLEAN DRY INTACT AND PATENT WITH SALINE FLUSH. PT HAS GODFREY TLC PICC THAT IS CLEAN DRY INTACT AND PATENT WITH NS @ TKO. BED IN LOW LOCK POSITION WITH RAILS UP X 2. CALL LIGHT WITHIN REACH AND ALL SAFETY MEASURES ENSURED AND CARRIED OUT. WILL CONTINUE TO MONITOR PT.
--- NOTE | 2018-10-31 20:27 | NUR ---
RECEIVED PT INTUBATED 7.5 ETT SECURED AT 23CM AT THE LIP. NO RESP DISTRESS, TOLERATING VENT SETTINGS. SX'D FOR SML AMT OF WHITE SECRETIONS. VENT ALARMS SET AND AUDIBLE. AMBU BAG AT BEDSIDE. VENT PLUGGED INTO RED OUTLET. WILL CONTINUE TO MONITOR. Addendum: 10/31/18 at 2028 by LEONEL HORTON RT Amended: Links added.
[2018-10-31] MEDS: ATORVASTATIN 40 MG TABLET PO SCH (21:04)
[2018-10-31] MEDS: INSULIN GLARGINE, 100 UNIT/ML CARTRIDGE SQ SCH (23:14)
[2018-11-01] VITALS (52 sets, daily range): BP systolic 97–183; BP diastolic 50–100
[2018-11-01] MEDS: PROPOFOL 100 ML IV PRN (03:20)
[2018-11-01 04:34] LABS: BASOPHILS % (AUTO) 0.5 % (0.0-2.0); HEMATOCRIT 28 % (33-45); HEMOGLOBIN 9.1 g/dL (11.5-14.8); LYMPHOCYTES # (AUTO) 1.5 /CMM (0.8-4.8); LYMPHOCYTES % (AUTO) 15.5 % (20.0-44.0); MEAN CORPUSCULAR HGB CONC 32 g/dl (31.0-36.0); MEAN CORPUSCULAR VOLUME 93 fL (82-100); MONOCYTES # (AUTO) 0.7 /CMM (0.1-1.30); MONOCYTES % (AUTO) 7.6 % (2.0-12.0); NEUTROPHILS # (AUTO) 6.8 /CMM (1.8-8.9); NEUTROPHILS % (AUTO) 71.4 % (43.0-81.0); PLATELET COUNT (AUTO) 151 /CMM (150-450); RED BLOOD CELL COUNT(AUTO) 3.03 MIL/uL (4.0-5.2); WHITE BLOOD COUNT (AUTO) 9.6 K/uL (4.3-11.0)
[2018-11-01 04:44] LABS: CALCIUM, SERUM 8.3 mg/dL (8.5-10.1); CREATININE 1.2 mg/dL (0.6-1.3); POTASSIUM 3.4 mmol/L (3.5-5.1)
[2018-11-01] MEDS: PIPERACILLIN /TAZOBACTAM 3.375 G in IV D5W 50 ML IV SCH ×4 (06:11→23:01)
[2018-11-01] MEDS: BLOOD SUGAR DIAGNOSTIC 1 EACH STRIP IN SCH ×4 (06:11→23:15)
[2018-11-01] MEDS: NS 0.9% IV SCH ×2 (06:11→18:08)
[2018-11-01] MEDS: FOSPHENYTOIN SODIUM PE IV SCH ×2 (06:11→18:08)
[2018-11-01] MEDS: INSULIN REGULAR, HUMAN 100 UNIT/ML 3 ML VIAL SQ PRN ×4 (06:25→23:18)
[2018-11-01] MEDS: GLUCERNA 1.2 1,000 ML BOTTLE NG PRN ×2 (07:22→08:43)
[2018-11-01] MEDS: ACETAMINOPHEN 650 MG/20.3 ML UDC NG PRN ×3 (07:22→20:45)
--- NOTE | 2018-11-01 07:23 | NUR ---
PT REMAINS IN NO ACUTE DISTRESS IN BED. PT DID NOT HAVE ANY SIGNIFICANT CHANGE IN CONDITION DURING SHIFT. ALL NEEDS MET, ALL ORDERS CARRIED OUT. WILL ENDORSE CARE TO AM RN FOR CONTINUITY OF CARE.
--- NOTE | 2018-11-01 07:34 | NUR ---
RESIDENCY DIRECTOR NOTE RCVD PT AWAKE AND ALERT, DIPRIVAN INFUSING AND TITRATED DOWN TO START WEANING PROCESS. SR ON MONITOR. PT FOLLOWING COMMANDS, APPEARS CALM AND COOPERATIVE. TOLERATING ORDERED VENT SETTINGS. DEAL TO GRAVITY DRAINING CLOUDY, YELLOW URINE. OG-TUBE PLACEMENT VERIFIED, ABOUT 5ML TUBE FEEDING RESIDUAL OBTAINED. IV SITES C/D/I PATENT. NO S/O INFILTRATION/PHLEBITIS OBSERVED UPON FLUSHING. WILL CONTINUE TO MONITOR PT FOR SAFETY AND COMFORT. CALL LIGHT WITHIN REACH. BED IN LOW AND LOCKED POSITION. HEAD OF BED ELEVATED. Addendum: 11/01/18 at 1837 by KAVEH LABOY RN PT ON COOLING BLANKET WITH TEMP OF 101.0 ON MONITOR.
--- NOTE | 2018-11-01 07:44 | NUR ---
PT REC'D ORALLY INTUBATED ON VERY LITTLE SEDATION. PT IS AWAKE AND ALERT, FOLLOWING COMMANDS. SABRINA FUENTES STOPPED SEDATION. PLACED PT ON SIMV MODE PER DR. BALTAZAR ORDERS. VENT ALARMS SET AND AUDIBLE PER POLICY. NO RESP. DISTRESS NOTED ON SIMV. VENT PLUGGED INTO RED OUTLET. AMBU BAG AT HOB. Addendum: 11/01/18 at 0748 by JÚNIOR BRYANT RT Amended: Links added.
[2018-11-01] MEDS: POTASSIUM CL. PREMIX PERIPHER. 50 ML IV SCH ×2 (08:43→09:24)
[2018-11-01] MEDS: CITRIC ACID/SODIUM CITRATE (BICITRA)15 ML UDC PO SCH ×4 (08:43→20:37)
[2018-11-01] MEDS: ZIPRASIDONE 20 MG CAPSULE PO SCH (08:43)
[2018-11-01] MEDS: METOPROLOL SUCCINATE 25 MG TAB.SR.24H PO SCH (08:44)
[2018-11-01] MEDS: AMIODARONE HCL 200 MG TABLET PO SCH ×3 (08:44→16:55)
[2018-11-01] MEDS: GABAPENTIN 400 MG CAPSULE PO SCH ×3 (08:44→16:55)
[2018-11-01] MEDS: ASPIRIN 325 MG TABLET PO SCH (08:44)
[2018-11-01] MEDS: PANTOPRAZOLE 40 MG/PACK PACK GT SCH (08:44)
[2018-11-01] MEDS: DOXAZOSIN MESYLATE (1 MG) 1 MG TABLET PO SCH (08:44)
[2018-11-01] MEDS: FENOFIBRATE NANOCRYS (145 MG) 145 MG TABLET PO SCH (08:44)
[2018-11-01] MEDS: NITROGLYCERIN 30 GM TUBE TP SCH ×2 (08:45→20:38)
[2018-11-01] MEDS: ENOXAPARIN SODIUM 40 MG/0.4 ML DISP.SYRIN SQ SCH (08:46)
[2018-11-01] MEDS: Z GUARD REMEDY 2 OZ OINT TP SCH (08:47)
[2018-11-01 09:05] LABS: ABG OXYGEN SATURATION 92.9 % (92.0-98.5); ABG PCO2 34.5 mmHg (35.0-45.0); ABG PH 7.468 (7.350-7.450); ABG PO2 70.5 mmHg (75.0-100.0); COHb 0.3 % (0.5-1.5); MetHb 0.3 % (0.0-1.5); O2Hb 92.3 % (94.0-97.0); PEEP,BG 5 cm H2O; SITE, ABG Right Radial
[2018-11-01] MEDS ORDERED: POTASSIUM CHLORIDE 20 MEQ POWDER PACKET NG SCH ×2 (11:00→13:00)
[2018-11-01] MEDS ORDERED: BUMETANIDE INJ 8 MG in IV NS 0.9% 48 ML IV ONE (11:00)
--- NOTE | 2018-11-01 14:24 | NUR ---
PT PLACED ON T-PIECE PER DR. BALTAZAR ORDERS. CUFF DEFLATED, FLOW SET AT 10LPM, FIO2 40%. PT IS AWAKE AND ALERT, SPO2 WNL. ALFREDO BENNETT IS AWARE. WILL CONTINUE TO MONITOR PT. Addendum: 11/01/18 at 1426 by JÚNIOR BRYANT RT Amended: Links added.
[2018-11-01] MEDS: CLONIDINE HCL 0.1 MG TABLET PO PRN (16:55)
[2018-11-01] MEDS ORDERED: DEXTROSE 50%-WATER 50 ML DISP.SYRIN IV PRN (17:00)
--- NOTE | 2018-11-01 17:27 | NUR ---
BORING AND FILLING MACHINE OPERATOR NOTE PT FOUND TO BE DIAPHORETIC, TACHYCARDIC, TACHYPNEIC, REMAINS FEBRILE. PT APPEARS LETHARGIC. RT CALLED AND PT PLACED BACK ON AC MODE. WILL CONTINUE TO MONITOR.
--- NOTE | 2018-11-01 17:29 | NUR ---
PT BECAME DIAPHORETIC, TACHYPNEIC AND IN RESP. DISTRESS. PT PLACED BACK ON VENT ON FULL SUPPORT. ALFREDO BENNETT IN THE ROOM AND AWARE OF THE SITUATION.
--- NOTE | 2018-11-01 18:31 | NUR ---
SPECIALTY FOOD PRODUCTS SUPERVISOR NOTE PT APPEARS IN NO DISTRESS VITAL SIGNS NORMALIZED AFTER PLACED ON AC MODE. ALBERTO VILLANUEVA INFORMED OF PT'S CHANGE IN CONDITION. REMAINS FEBRILE WITH COOLING BLANKET IN PLACE, DIURESING-BUMEX DRIP INFUSING. SR ON MONITOR. TOLERATING AC MODE. OG-TUBE PLACEMENT VERIFIED BY AUSCULTATION/ASPIRATION OF GASTRIC CONTENTS. TOLERATING TUBE FEEDING RATE. DEAL TO GRAVITY DRAINING PALE, YELLOW URINE. IV SITES C/D/I/PATENT. NO S/O INFILTRATION/PHLEBITIS OBSERVED UPON FLUSHING. PT'S CARE WILL BE ENDORSED TO SPA THERAPIST RN FOR CONTINUITY OF CARE. BED IN LOW AND LOCKED POSITION. CALL LIGHT WITHIN REACH. HEAD OF BED ELEVATED. SPOKE WITH ALBERTO VILLANUEVA REGARDING GEODON MAKING PT SLEEPY THIS AM. HE RECOMMENDED TO DISCONTINUE MED SINCE DR. BALTAZAR IS WEANING PT OFF VENT.
--- NOTE | 2018-11-01 20:00 | NUR ---
DIRECTOR ADVERTISING - NOTES - RCVD PT AWAKE AND ALERT. SR ON MONITOR. PT FOLLOWING COMMANDS, APPEARS CALM AND COOPERATIVE. TOLERATING ORDERED VENT SETTINGS. DEAL TO GRAVITY DRAINING CLOUDY, YELLOW URINE. OG-TUBE PLACEMENT VERIFIED, 0 ML TUBE FEEDING RESIDUAL OBTAINED. IV SITES C/D/I PATENT. NO S/O INFILTRATION/PHLEBITIS OBSERVED UPON FLUSHING. WILL CONTINUE TO MONITOR PT FOR SAFETY AND COMFORT. CALL LIGHT WITHIN REACH. BED IN LOW AND LOCKED POSITION. HEAD OF BED ELEVATED.
[2018-11-01] MEDS: ATORVASTATIN 40 MG TABLET PO SCH (21:40)
[2018-11-01] MEDS: INSULIN GLARGINE, 100 UNIT/ML CARTRIDGE SQ SCH (21:42)
--- NOTE | 2018-11-01 22:08 | NUR ---
RECEIVED PT INTUBATED 7.5 ETT SECURED AT 23CM AT THE LIP. NO RESP DISTRESS, TOLERATING VENT SETTINGS. SX'D FOR SML AMT OF WHITE SECRETIONS. VENT ALARMS SET AND AUDIBLE. AMBU BAG AT BEDSIDE. VENT PLUGGED INTO RED OUTLET. WILL CONTINUE TO MONITOR. Addendum: 11/01/18 at 2208 by LEONEL HORTON RT Amended: Links added.
[2018-11-02] VITALS (61 sets, daily range): BP systolic 96–149; BP diastolic 50–87
[2018-11-02] MEDS: oxyCODONE/APAP (5/325 MG) 1 UDTAB TABLET PO PRN ×2 (03:45→20:18)
[2018-11-02 04:42] LABS: BASOPHILS % (AUTO) 0.5 % (0.0-2.0); EOSINOPHILS % (AUTO) 2.7 % (0.0-6.0); HEMATOCRIT 31 % (33-45); HEMOGLOBIN 9.9 g/dL (11.5-14.8); LYMPHOCYTES # (AUTO) 1.2 /CMM (0.8-4.8); LYMPHOCYTES % (AUTO) 13.3 % (20.0-44.0); MEAN CORPUSCULAR HGB CONC 32 g/dl (31.0-36.0); MEAN CORPUSCULAR VOLUME 91 fL (82-100); MONOCYTES # (AUTO) 0.7 /CMM (0.1-1.30); MONOCYTES % (AUTO) 7.6 % (2.0-12.0); NEUTROPHILS % (AUTO) 75.9 % (43.0-81.0); PLATELET COUNT (AUTO) 154 /CMM (150-450); RED BLOOD CELL COUNT(AUTO) 3.35 MIL/uL (4.0-5.2); WHITE BLOOD COUNT (AUTO) 9.2 K/uL (4.3-11.0)
[2018-11-02 04:58] LABS: CALCIUM, SERUM 8.3 mg/dL (8.5-10.1); CREATININE 1.2 mg/dL (0.6-1.3); POTASSIUM 3.5 mmol/L (3.5-5.1)
[2018-11-02] MEDS: PIPERACILLIN /TAZOBACTAM 3.375 G in IV D5W 50 ML IV SCH (05:06)
[2018-11-02] MEDS: BLOOD SUGAR DIAGNOSTIC 1 EACH STRIP IN SCH ×4 (05:06→23:37)
[2018-11-02] MEDS: NS 0.9% IV SCH ×2 (06:04→17:28)
[2018-11-02] MEDS: FOSPHENYTOIN SODIUM PE IV SCH ×2 (06:04→17:28)
--- NOTE | 2018-11-02 07:52 | NUR ---
INITIAL CASE PREPARER AND LINER NOTE RCVD PT AWAKE AND ALERT ABLE TO FOLLOW COMMANDS. SR ON MONITOR. INTUBATED TOLERATING ORDERED VENT SETTINGS. DEAL TO GRAVITY DRAINING YELLOW URINE. OG-TUBE ADVANCED 5 CM PER RADIOLOGIST RECOMMENDATION AND PLACEMENT VERIFIED BY AUSCULTATION/ASPIRATION OF GASTRIC CONTENT, ABOUT 10 ML TUBE FEEDING RESIDUAL OBTAINED. IV SITES C/D/I/PATENT. NO S/O INFILTRATION/PHLEBITIS OBSERVED UPON FLUSHING. WILL CONTINUE TO MONITOR PT FOR SAFETY AND COMFORT. BED IN LOW AND LOCKED POSITION. CALL LIGHT WITHIN REACH. HEAD OF BED ELEVATED AT 30 DEGREES. Addendum: 11/02/18 at 0755 by KAVEH LABOY RN PT REMAINS FEBRILE, OFF COOLING BLANKET WITH FAN BLOWING AT PT.
[2018-11-02] MEDS ORDERED: POTASSIUM CHLORIDE 20 MEQ POWDER PACKET NG SCH (08:00)
[2018-11-02] MEDS: FENOFIBRATE NANOCRYS (145 MG) 145 MG TABLET PO SCH (08:23)
[2018-11-02] MEDS: ACETAMINOPHEN 650 MG/20.3 ML UDC NG PRN (08:23)
[2018-11-02] MEDS: NITROGLYCERIN 30 GM TUBE TP SCH ×2 (08:23→20:17)
[2018-11-02] MEDS: AMIODARONE HCL 200 MG TABLET PO SCH ×3 (08:23→17:28)
[2018-11-02] MEDS: NYSTATIN (PYXIS) 500,000 UNIT/5 ML ORAL.SUSP PO SCH ×3 (08:23→17:28)
[2018-11-02] MEDS: GABAPENTIN 400 MG CAPSULE PO SCH ×3 (08:23→17:28)
[2018-11-02] MEDS: PANTOPRAZOLE 40 MG/PACK PACK GT SCH (08:23)
[2018-11-02] MEDS: ASPIRIN 325 MG TABLET PO SCH (08:23)
[2018-11-02] MEDS: CITRIC ACID/SODIUM CITRATE (BICITRA)15 ML UDC PO SCH (08:23)
[2018-11-02] MEDS: METOPROLOL SUCCINATE 25 MG TAB.SR.24H PO SCH (08:24)
[2018-11-02] MEDS: DOXAZOSIN MESYLATE (1 MG) 1 MG TABLET PO SCH (08:24)
[2018-11-02] MEDS: Z GUARD REMEDY 2 OZ OINT TP SCH (08:25)
[2018-11-02] MEDS: ENOXAPARIN SODIUM 40 MG/0.4 ML DISP.SYRIN SQ SCH (08:26)
[2018-11-02] MEDS ORDERED: BUMETANIDE INJ 8 MG in IV NS 0.9% 48 ML IV ONE (08:30)
[2018-11-02 08:34] LABS: ABG BASE EXCESS 6.8 mmol/L; ABG OXYGEN SATURATION 94.5 % (92.0-98.5); ABG PCO2 33.2 mmHg (35.0-45.0); ABG PH 7.561 (7.350-7.450); ABG PO2 72.8 mmHg (75.0-100.0); AaDO2 174.2 mmHg; COHb 0.6 % (0.5-1.5); MetHb 0.1 % (0.0-1.5); O2Hb 93.8 % (94.0-97.0); PEEP,BG 5 cm H2O; SITE, ABG Right Radial; VT, ABG 550 mL
--- NOTE | 2018-11-02 08:39 | NUR ---
VENT CHANGES BELOW MADE PER DR. BALTAZAR: DECREASED VT FROM 550 TO 500 ML, RN NOTIFIED ON VENT CHANGES. Addendum: 11/02/18 at 0840 by HERMINIO SYLVESTER RT Amended: Links added.
[2018-11-02] MEDS: GLUCERNA 1.2 1,000 ML BOTTLE NG PRN (10:33)
[2018-11-02] MEDS ORDERED: PIPERACILLIN /TAZOBACTAM 2.25 G in IV NS 0.9% 50 ML IV SCH (12:00)
[2018-11-02] MEDS ORDERED: FEE PK DOSING 1 MIN EA MC ONE (12:20)
--- NOTE | 2018-11-02 12:33 | NUR ---
CHORAL TEACHER NOTE PT'S DAUGHTER, REINIER CALLED SHE WAS UPDATED REGARDING PT'S CONDITION. PT'S BROTHER, LARRY ALSO CALLED PT GAVE PERMISSION BY NODDING HEAD TO GO AHEAD AND SHARE HER PERSONAL HEALTH INFORMATION WITH LARRY. BOTH RELATIVES WERE UPDATED REGARDING PT'S CONDITION QUESTIONS ENCOURAGED AND ANSWERED TO THEIR SATISFACTION.
[2018-11-02] MEDS: INSULIN REGULAR, HUMAN 100 UNIT/ML 3 ML VIAL SQ PRN ×3 (12:36→23:39)
[2018-11-02] MEDS ORDERED: VANCOMYCIN 0.75 GM in IV NS 0.9% 250 ML IV SCH (13:00)
[2018-11-02] MEDS ORDERED: MEROPENEM 1 G in IV NS 0.9% 100 ML IV SCH (13:00)
[2018-11-02 14:00] LABS: APPEARANCE,URINE CLEAR (CLEAR); BILIRUBIN,URINE NEGATIVE (NEGATIVE); BLOOD, URINE TRACE Ery/uL (NEGATIVE); COLOR,URINE YELLOW (YELLOW); KETONES,URINE NEGATIVE (NEGATIVE); LEUKOCYTE ESTERASE ,URINE NEGATIVE (NEGATIVE); NITRITE, URINE NEGATIVE (NEGATIVE); PH,URINE 6.5 (5.0-8.0); PROTEIN,URINE NEGATIVE (NEGATIVE); UGLUCOSE NEGATIVE (NEGATIVE); UROBILINOGEN,URINE 0.2 EU/dL (0.2)
[2018-11-02 14:35] LABS: BACTERIA,URINE None seen /HPF (None Seen); RBC,URINE 0-2 /HPF (0-2); SQUAMOUS EPITHELIAL CELL,UR Few /HPF (None Seen); WBC,URINE 0-2 /HPF (0-3); YEAST,URINE Rare /HPF (None Seen)
[2018-11-02] MEDS ORDERED: MEROPENEM 1 G in IV NS 0.9% 100 ML IV ONE (15:00)
[2018-11-02] MEDS: OSELTAMIVIR PHOSPHATE 75 MG CAPSULE PO SCH (17:28)
--- NOTE | 2018-11-02 18:29 | NUR ---
MANUFACTURING ENGINEERING INTERN NOTE PT AWAKE AND ALERT, SHOWING NO S/O DISTRESS, RESTING AT THIS TIME. SR ON MONITOR REMAINS FEBRILE. TOLERATING ORDERED VENT SETTINGS WITH PLAN FOR CPAP IN AM. PLAN OF CARE EXPLAINED TO PT AND PT'S JOSIE OWENS AT BEDSIDE. QUESTIONS ENCOURAGED AND ANSWERED TO THEIR SATISFACTION. DEAL TO GRAVITY DRAINING PALE, YELLOW URINE, BUMEX DRIP FINISHED. OG-TUBE PLACEMENT VERIFIED BY AUSCULTATION/ASPIRATION OF GASTRIC CONTENTS, AFTER SECOND CHEST X-RAY OG-TUBE WAS ADVANCED 5 CM MORE TOTALING 10 CM SINCE THIS AM. IV SITES C/D/I/PATENT. NO S/O INFILTRATION/PHLEBITIS OBSERVED UPON FLUSHING. BED IN LOCKED AND LOW POSITION. CALL LIGHT WITHIN REACH. HEAD OF BED ELEVATED AT 30 DEGREES.
--- NOTE | 2018-11-02 20:10 | NUR ---
RECEIVED PT AWAKE RESPONSIVE INTUBATED 7.5 ETT SECURED AT 23CM AT THE LIP. NO RESP DISTRESS, TOLERATING VENT SETTINGS. SX'D FOR SML AMT OF WHITE SECRETIONS. VENT ALARMS SET AND AUDIBLE. AMBU BAG AT BEDSIDE. VENT PLUGGED INTO RED OUTLET. WILL CONTINUE TO MONITOR. Addendum: 11/02/18 at 2010 by LEONEL HORTON RT Amended: Links added.
[2018-11-02] MEDS: ATORVASTATIN 40 MG TABLET PO SCH (21:55)
[2018-11-02] MEDS: INSULIN GLARGINE, 100 UNIT/ML CARTRIDGE SQ SCH (21:56)
[2018-11-03] VITALS (52 sets, daily range): BP systolic 96–155; BP diastolic 57–96
[2018-11-03] MEDS ORDERED: VANCOMYCIN 1 GM VIAL ONE (00:08)
[2018-11-03] MEDS ORDERED: VANCOMYCIN 0.75 GM in IV D5W 250 ML IV SCH (01:00)
[2018-11-03] MEDS: MEROPENEM 1 G in IV NS 0.9% 100 ML IV SCH ×2 (03:09→14:50)
[2018-11-03] MEDS: ACETAMINOPHEN 650 MG/20.3 ML UDC NG PRN ×2 (03:09→23:23)
[2018-11-03 05:23] LABS: CALCIUM, SERUM 8.3 mg/dL (8.5-10.1); CREATININE 1.2 mg/dL (0.6-1.3); POTASSIUM 3.3 mmol/L (3.5-5.1)
[2018-11-03] MEDS: BLOOD SUGAR DIAGNOSTIC 1 EACH STRIP IN SCH ×4 (06:20→23:23)
[2018-11-03] MEDS: INSULIN REGULAR, HUMAN 100 UNIT/ML 3 ML VIAL SQ PRN ×4 (06:21→23:29)
[2018-11-03] MEDS: FOSPHENYTOIN SODIUM PE IV SCH ×2 (06:23→18:36)
[2018-11-03] MEDS: NS 0.9% IV SCH ×2 (06:23→18:36)
[2018-11-03 08:10] LABS: ABG BASE EXCESS 7.8 mmol/L; ABG PCO2 32.1 mmHg (35.0-45.0); ABG PH 7.584 (7.350-7.450); ABG PO2 62.9 mmHg (75.0-100.0); AaDO2 185.4 mmHg; COHb 0.9 % (0.5-1.5); MetHb 0.3 % (0.0-1.5); O2Hb 90.9 % (94.0-97.0); SITE, ABG Right Brachial; VENT MODE, BG PS 12
[2018-11-03] MEDS: Potassium Phosphate meq 11 MEQ in IV D5W 100 ML IV SCH ×2 (08:53→11:49)
[2018-11-03] MEDS ORDERED: DC PROPOFOL WHEN EXTUBATED XX PRN (09:00)
[2018-11-03] MEDS: ASPIRIN 325 MG TABLET PO SCH (09:06)
[2018-11-03] MEDS: PANTOPRAZOLE 40 MG/PACK PACK GT SCH (09:06)
[2018-11-03] MEDS: NYSTATIN (PYXIS) 500,000 UNIT/5 ML ORAL.SUSP PO SCH ×3 (09:06→17:26)
[2018-11-03] MEDS: DOXAZOSIN MESYLATE (1 MG) 1 MG TABLET PO SCH (09:07)
[2018-11-03] MEDS: FENOFIBRATE NANOCRYS (145 MG) 145 MG TABLET PO SCH (09:07)
[2018-11-03] MEDS: METOPROLOL SUCCINATE 25 MG TAB.SR.24H PO SCH (09:07)
[2018-11-03] MEDS: AMIODARONE HCL 200 MG TABLET PO SCH ×3 (09:07→17:26)
[2018-11-03] MEDS: GABAPENTIN 400 MG CAPSULE PO SCH ×3 (09:08→17:26)
[2018-11-03] MEDS: ENOXAPARIN SODIUM 40 MG/0.4 ML DISP.SYRIN SQ SCH (09:08)
[2018-11-03] MEDS: OSELTAMIVIR PHOSPHATE 75 MG CAPSULE PO SCH ×2 (09:08→17:27)
[2018-11-03] MEDS: Z GUARD REMEDY 2 OZ OINT TP SCH (09:20)
[2018-11-03] MEDS: NITROGLYCERIN 30 GM TUBE TP SCH ×3 (09:22→22:43)
--- NOTE | 2018-11-03 09:40 | NUR ---
RT PER DR BALTAZAR ORDERS PATIENT WAS EXTUBATED AND PLACED ON 3L N/C TATI WELL.
[2018-11-03 13:04] LABS: ABG BASE EXCESS 7.6 mmol/L; ABG OXYGEN SATURATION 95.9 % (92.0-98.5); ABG PCO2 41.8 mmHg (35.0-45.0); ABG PH 7.496 (7.350-7.450); ABG PO2 91.1 mmHg (75.0-100.0); AaDO2 124.3 mmHg; COHb 0.6 % (0.5-1.5); MetHb 0.1 % (0.0-1.5); O2Hb 95.2 % (94.0-97.0); SITE, ABG Right Radial; VENT MODE, BG nasal cannula
--- NOTE | 2018-11-03 15:24 | NUR ---
Pt appears to be lethargic and diaphoretic. BS190. ABG STAT. PH 7.46, PCO2 41.3, PO2 81, AFF935. VSS. AFEBRILE. DR GIOVANNY RICHMOND.
[2018-11-03 15:25] LABS: ABG BASE EXCESS 4.6 mmol/L; ABG OXYGEN SATURATION 94.5 % (92.0-98.5); ABG PCO2 41.3 mmHg (35.0-45.0); ABG PH 7.461 (7.350-7.450); ABG PO2 81.1 mmHg (75.0-100.0); AaDO2 113.2 mmHg; COHb 0.5 % (0.5-1.5); MetHb 0.3 % (0.0-1.5); O2Hb 93.7 % (94.0-97.0); SITE, ABG Right Radial
--- NOTE | 2018-11-03 15:41 | NUR ---
NEW ORDERS FOR BIPAP OBTAINED FROM DR BALTAZAR.
--- NOTE | 2018-11-03 16:05 | NUR ---
PATIENT PLACED ON BIPAP FOR POOR RESPIRATORY DRIVE. MEPILEX PLACED ON RIM OF NOSE. BIPAP SETTINGS SET PER DR BALTAZAR. BIPAP ALARMS CHECKED + AUDIBLE. Addendum: 11/03/18 at 1606 by JOY MORALES RT Amended: Links added.
[2018-11-03 17:41] LABS: ABG BASE EXCESS 3.9 mmol/L; ABG OXYGEN SATURATION 96.7 % (92.0-98.5); ABG PCO2 35.7 mmHg (35.0-45.0); ABG PH 7.499 (7.350-7.450); AaDO2 210.3 mmHg; COHb 0.2 % (0.5-1.5); O2Hb 96.5 % (94.0-97.0); SITE, ABG Right Radial; VENT MODE, BG 15/5 r12 50%
--- NOTE | 2018-11-03 18:00 | NUR ---
PT OFF BIPAP FOR DINNER. 100% INTAKE. TOLERATED BEING OFF BIPAP ON 4L NS.
--- NOTE | 2018-11-03 19:30 | NUR ---
ROUTER OPERATOR PIN NOTE PT RECEIVED A/O X3 AND ABLE TO MAKE NEEDS KNOWN. FOLLOWS COMMANDS. ON BIPAP AND TOLERATING WELL. HOB ELEVATED AND ON ASPIRATION PRECAUTIONS. NO C/O PAIN OR DISTRESS NOTED. TELE- SB WITH INVERTED TWAVE. IV'S IN PLACE AND FLUSHING WELL. DEAL CATHETER IN PLACE AND DRAINING BY GRAVITY. CALL LIGHT WITHIN REACH. WILL MONITOR.
--- NOTE | 2018-11-03 19:30 | NUR ---
RCVD PT ON BIPAP 15/5, RATE 12 , FIO2 50%. BIPAP PLUGGED INTO RED OUTLET , ALARMS SET AND AUDIBLE. AMBU BAG AT BEDSIDE. WILL CONTINUE TO MONITOR THE VENT.
[2018-11-03] MEDS: ATORVASTATIN 40 MG TABLET PO SCH (21:52)
[2018-11-03] MEDS: INSULIN GLARGINE, 100 UNIT/ML CARTRIDGE SQ SCH (21:58)
[2018-11-04] VITALS (38 sets, daily range): BP systolic 94–141; BP diastolic 43–77
[2018-11-04] MEDS: MEROPENEM 1 G in IV NS 0.9% 100 ML IV SCH ×2 (02:58→15:35)
--- NOTE | 2018-11-04 03:00 | NUR ---
OLIVE PICKER NOTE GAVE REPORT TO NURSE CRAMER FOR CONTINUITY OF CARE.
[2018-11-04 05:03] LABS: CALCIUM, SERUM 7.7 mg/dL (8.5-10.1); CREATININE 1.1 mg/dL (0.6-1.3); POTASSIUM 3.5 mmol/L (3.5-5.1)
[2018-11-04] MEDS: BLOOD SUGAR DIAGNOSTIC 1 EACH STRIP IN SCH ×4 (06:29→23:58)
[2018-11-04] MEDS: FOSPHENYTOIN SODIUM PE IV SCH ×2 (06:43→17:07)
[2018-11-04] MEDS: NS 0.9% IV SCH ×2 (06:43→17:07)
--- NOTE | 2018-11-04 07:10 | NUR ---
RN INITIAL NOTES: Rec'd pt on bed, not in any distress, A/O x 2-3. On BIPAP, sating at 100%. On telemonitor, SR. Has BHARATHI midline & GODFREY PICC line, patent & intact w/ no s/sx of infection/infiltration noted. Has FC draining to BSB w/ yellowish UOP. Safety precaution in place. Bed in lowest & locked pos. Call light w/in reach. Will continue to monitor & attend pt needs.
[2018-11-04] MEDS: ASPIRIN 325 MG TABLET PO SCH (08:48)
[2018-11-04] MEDS: PANTOPRAZOLE 40 MG/PACK PACK GT SCH (08:48)
[2018-11-04] MEDS: FENOFIBRATE NANOCRYS (145 MG) 145 MG TABLET PO SCH (08:48)
[2018-11-04] MEDS: POTASSIUM CHLORIDE 20 MEQ TAB.PRT.SR PO SCH ×2 (08:48→09:47)
[2018-11-04] MEDS: NYSTATIN (PYXIS) 500,000 UNIT/5 ML ORAL.SUSP PO SCH ×3 (08:48→17:05)
[2018-11-04] MEDS: GABAPENTIN 400 MG CAPSULE PO SCH ×3 (08:48→17:05)
[2018-11-04] MEDS: DOXAZOSIN MESYLATE (1 MG) 1 MG TABLET PO SCH (08:48)
[2018-11-04] MEDS: AMIODARONE HCL 200 MG TABLET PO SCH ×3 (08:49→17:00)
[2018-11-04] MEDS: METOPROLOL SUCCINATE 25 MG TAB.SR.24H PO SCH (08:49)
[2018-11-04] MEDS: OSELTAMIVIR PHOSPHATE 75 MG CAPSULE PO SCH ×2 (08:49→17:05)
[2018-11-04] MEDS: NITROGLYCERIN 30 GM TUBE TP SCH ×2 (08:50→22:02)
--- NOTE | 2018-11-04 08:50 | NUR ---
Pt seen & examined by Dr. Tillman. Per MD, may start PO feeding w/ strict aspiration precaution. ST Loza at bedside to do swallow evaluation.
--- NOTE | 2018-11-04 09:15 | NUR ---
Dr. Sloan informed that pt started on PO feedings, evaluated by ST Loza. Pt was placed on NC at 5lpm, sating at >90% w/ good cough. Health teaching about deep breathing exercises done. Will monitor closely.
[2018-11-04] MEDS: Z GUARD REMEDY 2 OZ OINT TP SCH (09:19)
[2018-11-04] MEDS: ENOXAPARIN SODIUM 40 MG/0.4 ML DISP.SYRIN SQ SCH (09:19)
[2018-11-04 09:43] LABS: ABG BASE EXCESS 3.9 mmol/L; ABG OXYGEN SATURATION 89.8 % (92.0-98.5); ABG PCO2 25.7 mmHg (35.0-45.0); ABG PH 7.601 (7.350-7.450); ABG PO2 56.2 mmHg (75.0-100.0); AaDO2 199.4 mmHg; COHb 0.3 % (0.5-1.5); MetHb 0.5 % (0.0-1.5); O2Hb 89.1 % (94.0-97.0); SITE, ABG Right Radial; VENT MODE, BG Nasal Cannula
--- NOTE | 2018-11-04 10:08 | NUR ---
ABG results relayed to Dr. Sloan.
[2018-11-04] MEDS ORDERED: acetaZOLAMIDE 250 MG TABLET PO ONE (10:30)
--- NOTE | 2018-11-04 11:00 | NUR ---
Per Dr. Sloan, no restrictions w/ fluid.
[2018-11-04] MEDS: Magnesium 1GM/D5W 100ML PREMIX 100 ML IV SCH ×2 (11:18→12:34)
[2018-11-04] MEDS: INSULIN REGULAR, HUMAN 100 UNIT/ML 3 ML VIAL SQ PRN ×2 (11:41→17:18)
[2018-11-04] MEDS: oxyCODONE/APAP (5/325 MG) 1 UDTAB TABLET PO PRN ×2 (15:41→21:54)
--- NOTE | 2018-11-04 18:31 | NUR ---
RN CLOSING NOTES: Pt not in any distress while on NC at 6lpm, sating at 99%, A/O x 3. SR/SB on telemonitor. BHARATHI midline & GODFREY PICC line, kept patent & intact w/ no s/sx of infection/infiltration noted. FC draining to BSB w/ adequate yellowish UOP. Safety precaution kept in place at all times. Bed in lowest & locked pos. Call light w/in reach. Will endorse to PM RN for CRISTAL. Per CN, she was able to talk to Dr. Sloan, pt is okay to transfer to [facility].
--- NOTE | 2018-11-04 20:13 | NUR ---
SUPPORT STAFF. INITIAL ASSESSMENT. RECEIVED THE PT REST ON THE BED, AWAKE, ALERT, FOLLOW COMMANDS. FINE GRADER SHOWING S HILL. OXYGEN 6L VIA NASAL CANNULA. SAT 98%. NO ACUTE DISTRESS NOTED. IV RT UPPER ARM MID LINE, LT UPPER ARM PICC LINE SALINE LOCK. FC PATENT. WILL CONTINUE TO MONITOR VITALS.
--- NOTE | 2018-11-04 20:50 | NUR ---
FILLING TECHNICIANDRAGGER OUT THE PT TO [facility] ROOM 120 -1 REPORT GIVEN TO KIRAN FUENTES. PT IS STABLE.
--- NOTE | 2018-11-04 21:05 | NUR ---
TD/RN INITIAL NOTES RECEIVED PT, TRANSFER FROM ICU VIA BED IN STABLE CONDITION. A/OX4. C/O HEADACHE AND BACKPAIN WITH PAIN SCALE OF 7/10. SR HR 60S ON TELE MONITOR. ON 6L O2 VIA NC, TOLERATING WELL. NO SOB NOTED. VS TAKEN. GODFREY PICC AND BHARATHI MIDLINE INTACT AND PATENT. F/C INTACT AND IN PLACED. ORIENTED TO ROOM AND USE OF CALL LIGHT. SAFETY MEASURES IN PLACED. CALL LIGHT WITHIN EASY REACH. WILL CONT TO MONITOR
[2018-11-04] MEDS: ATORVASTATIN 40 MG TABLET PO SCH (21:54)
[2018-11-04] MEDS: INSULIN GLARGINE, 100 UNIT/ML CARTRIDGE SQ SCH (22:06)
[2018-11-05] VITALS: BP_SYST 107; BP_SYST 123; BP_DIAS 53; BP_DIAS 65
--- NOTE | 2018-11-05 01:03 | NUR ---
ADELINA RN NOTES ,BLOOD SUGAR FOR 10PM IS 313MG/DL LANTUS 19 UNITS GIVEN ORDERED, AND 8 UNITS OF REGULAR INSULIN GIVEN PER SLIDING SCALE.
[2018-11-05] MEDS: MEROPENEM 1 G in IV NS 0.9% 100 ML IV SCH ×2 (03:01→17:56)
[2018-11-05 04:00] VITALS: BP 113/62
[2018-11-05] MEDS: FOSPHENYTOIN SODIUM PE IV SCH ×2 (05:15→17:03)
[2018-11-05] MEDS: NS 0.9% IV SCH ×2 (05:15→17:03)
[2018-11-05] MEDS: BLOOD SUGAR DIAGNOSTIC 1 EACH STRIP IN SCH ×4 (05:33→21:05)
[2018-11-05] MEDS: INSULIN REGULAR, HUMAN 100 UNIT/ML 3 ML VIAL SQ PRN ×5 (05:35→21:08)
--- NOTE | 2018-11-05 06:49 | NUR ---
RN NOTES PT IN STABLE CONDITION. NO ACUTE CHANGES THROUGHOUT SHIFT. ALL NEEDS ANTICIPATED. SAFETY MEASURES OBSERVED AT ALL TIMES. ENDORSED TO AM SHIFT RN FOR CRISTAL
[2018-11-05 06:58] LABS: CALCIUM, SERUM 7.9 mg/dL (8.5-10.1); CREATININE 1.1 mg/dL (0.6-1.3); MAGNESIUM 2.2 mg/dL (1.8-2.4); POTASSIUM 3.8 mmol/L (3.5-5.1)
[2018-11-05 08:00] VITALS: BP 115/54
[2018-11-05] MEDS: GABAPENTIN 400 MG CAPSULE PO SCH ×3 (08:50→16:53)
[2018-11-05] MEDS: ASPIRIN 325 MG TABLET PO SCH (08:50)
[2018-11-05] MEDS: FENOFIBRATE NANOCRYS (145 MG) 145 MG TABLET PO SCH (08:50)
[2018-11-05] MEDS: PANTOPRAZOLE 40 MG/PACK PACK GT SCH (08:50)
[2018-11-05] MEDS: OSELTAMIVIR PHOSPHATE 75 MG CAPSULE PO SCH ×2 (08:50→16:53)
[2018-11-05] MEDS: NYSTATIN (PYXIS) 500,000 UNIT/5 ML ORAL.SUSP PO SCH ×3 (08:57→16:53)
[2018-11-05] MEDS: DOXAZOSIN MESYLATE (1 MG) 1 MG TABLET PO SCH (09:00)
[2018-11-05] MEDS: METOPROLOL SUCCINATE 25 MG TAB.SR.24H PO SCH (09:00)
[2018-11-05] MEDS: AMIODARONE HCL 200 MG TABLET PO SCH ×3 (09:00→16:53)
[2018-11-05] MEDS: NITROGLYCERIN 30 GM TUBE TP SCH ×2 (09:05→20:41)
[2018-11-05] MEDS: Z GUARD REMEDY 2 OZ OINT TP SCH (09:06)
[2018-11-05] MEDS: ENOXAPARIN SODIUM 40 MG/0.4 ML DISP.SYRIN SQ SCH (09:08)
[2018-11-05 09:45] LABS: ABG BASE EXCESS -1.9 mmol/L; ABG OXYGEN SATURATION 97.7 % (92.0-98.5); ABG PCO2 28.3 mmHg (35.0-45.0); ABG PH 7.484 (7.350-7.450); ABG PO2 148.3 mmHg (75.0-100.0); AaDO2 104.4 mmHg; COHb 0.3 % (0.5-1.5); MetHb 0.1 % (0.0-1.5); O2Hb 97.3 % (94.0-97.0); SITE, ABG Right Radial; VENT MODE, BG NC 5L
[2018-11-05 12:00] VITALS: BP 112/67
[2018-11-05] MEDS ORDERED: IV NS 0.9% 250 ML IV ONE ×2 (15:38→16:07)
[2018-11-05] MEDS ORDERED: IOHEXOL-350 100 ML VIAL IV ONE ×2 (15:38→16:07)
[2018-11-05] MEDS ORDERED: CT SWABBABLE VALVE TRANS SET 1 EA INFUS.SET MC ONE ×2 (15:38→16:07)
[2018-11-05 16:00] VITALS: BP 112/73
--- NOTE | 2018-11-05 18:50 | NUR ---
RN NOTE: RECEIVED A PHONE CALL FROM DR. PEDRO RE: THE PATIENT'S CTA RESULT. PER MD, HE WANTED THE MIDDLE SCHOOL PROFESSIONAL TO BE INFORMED ABOUT THE PATIENT'S TRANSFER TO A HIGHER LEVEL OF CARE FOR CARDIAC CATHERIZATION. PER DR. PEDRO HE WILL SPEAK AND INFORM DR. HAZEL ABOUT IT. PRIMARY NURSE MICHELLE MADE AWARE. MIDDLE SCHOOL PROFESSIONAL CANDIDO WAS INFORMED ABOUT THE PHONE CALL FROM DR. PEDRO AND AWAITING FOR THE PATIENT'S TRANSFER ARRANGEMENT.
--- NOTE | 2018-11-05 19:00 | NUR ---
RN NOTE ACCORDING TO DR PEDRO REPORTED TO CHARGE NURSE EDMAR, THAT PT HAD SOME OCCLUSIONS IN HEART AND PT NEEDS TO BE TRANSFERRED TO ANOTHER HOSPITAL, CALL OR CONTACT CENTRE OPERATOR IS AWARE, PT AWARE.
[2018-11-05 20:00] VITALS: BP_SYST 112; BP_SYST 147; BP_DIAS 67
--- NOTE | 2018-11-05 20:00 | NUR ---
ADELINA RN NOTES RECEIVED PTS IN BED A/OX4 ABLE TO MAKE NEEDS KNOWN .ON SR ON MONITOR ,V/S STABLE AFEBRILE , NO SOB NO DISTRESS NOTED, PTS ON 3 LITERS OF 02 VIA NC, ALL DUE MEDS GIVEN ORDERED ALL NEEDS ATTENDED TOO CALL LIGHT WITHIN REACH PTS ON HOB AT 35 DEGREES AT AL L TIMES PTS WITH PICC LINE ON LEFT UA INTACT AND PATENT. PTS ON PUREED DIET , WITH F/C INTACT AND PATENT DRAINING WITH YELLOWISH URINE OUTPUT, WILL CONTINUE TO MONITOR PTS.PER ENDORSEMENT PTS TO BE TRANSFER TO [facility] , WILL WAIT FOR [facility] TO CALL US FOR ROOM , PTS MADE AWARE OF TRANSFER, WILL CONTINUE TO MONITOR PTS.
[2018-11-05] MEDS: oxyCODONE/APAP (5/325 MG) 1 UDTAB TABLET PO PRN (20:44)
[2018-11-05] MEDS: ATORVASTATIN 40 MG TABLET PO SCH (21:01)
[2018-11-05] MEDS: INSULIN GLARGINE, 100 UNIT/ML CARTRIDGE SQ SCH (21:02)
--- NOTE | 2018-11-05 23:20 | NUR ---
ADELINA RN NOTES RECEIVED A CALL FROM CIRILO SWANSON [facility] ) FOR PTS ROOM ACCEPTANCE , ROOM WILL BE [id number] TEL #[phone].,spoke to olga mccann receiving nurse ,report given to her. awaiting for transport. pts made aware of transfer.
--- NOTE | 2018-11-05 23:40 | NUR ---
yeni rn notes place [facility] spoke to levar eta is 2pm . sunil from rn form [facility] made aware of abbi.
[2018-11-06] VITALS: BP 123/65
--- NOTE | 2018-11-06 | NUR ---
yeni rn notes pts is stable in bed v/s stable afebrile comfortable in bed ,no c/o of pain at this time,pts comfortable in bed.awaiting for transport.
--- NOTE | 2018-11-06 01:40 | NUR ---
yeni rn notes pts left the hospital in stable condition going to [facility] , for cardiac cath ,picker / packer by [facility] transport in stable condition v/s stable afebrile.
== END 2018-11-06 01:40 | disposition short-term general hospital (02) | DRG 208 ==
LOC: ER 05:15 → TELE 06:52 → ICU 07:59 → TELE-TD 11-04 20:59
PROVIDERS: ADMIT Internal Medicine; ATTEND Internal Medicine
PROC: 5A1945Z Respiratory Ventilation, 24-96 Consecutive Hours (ICD-10-PCS; principal; 2018-10-25)
PROC: 05H533Z Insertion of Infusion Device into Right Subclavian Vein, Percutaneous Approach (ICD-10-PCS; 2018-10-25)
PROC: B546ZZA Ultrasonography of Right Subclavian Vein, Guidance (ICD-10-PCS; 2018-10-25)
PROC: 5A1945Z Respiratory Ventilation, 24-96 Consecutive Hours (ICD-10-PCS; 2018-10-26)
PROC: 0BH17EZ Insertion of Endotracheal Airway into Trachea, Via Natural or Artificial Opening (ICD-10-PCS; 2018-10-26)
PROC: 5A1945Z Respiratory Ventilation, 24-96 Consecutive Hours (ICD-10-PCS; 2018-10-30)
PROC: 0BH17EZ Insertion of Endotracheal Airway into Trachea, Via Natural or Artificial Opening (ICD-10-PCS; 2018-10-30)
PROC: 5A1945Z Respiratory Ventilation, 24-96 Consecutive Hours (ICD-10-PCS; 2018-11-03)
DX: J96.01 Acute respiratory failure with hypoxia (principal); E10.10 Type 1 diabetes mellitus with ketoacidosis without coma; I21.4 Non-ST elevation (NSTEMI) myocardial infarction; E43 Unspecified severe protein-calorie malnutrition; N17.0 Acute kidney failure with tubular necrosis; I50.23 Acute on chronic systolic (congestive) heart failure; G92 Toxic encephalopathy; I50.33 Acute on chronic diastolic (congestive) heart failure; J18.9 Pneumonia, unspecified organism; I13.0 Hypertensive heart and chronic kidney disease with heart failure and stage 1 through stage 4 chronic kidney disease, or unspecified chronic kidney disease; D68.59 Other primary thrombophilia; E87.0 Hyperosmolality and hypernatremia; E87.4 Mixed disorder of acid-base balance; J96.02 Acute respiratory failure with hypercapnia; G40.909 Epilepsy, unspecified, not intractable, without status epilepticus; N18.9 Chronic kidney disease, unspecified; E10.22 Type 1 diabetes mellitus with diabetic chronic kidney disease; E78.5 Hyperlipidemia, unspecified; I25.10 Atherosclerotic heart disease of native coronary artery without angina pectoris; Z68.34 Body mass index [BMI] 34.0-34.9, adult; E66.9 Obesity, unspecified; G89.4 Chronic pain syndrome; E87.6 Hypokalemia; F17.200 Nicotine dependence, unspecified, uncomplicated; F31.9 Bipolar disorder, unspecified; I48.91 Unspecified atrial fibrillation; K21.9 Gastro-esophageal reflux disease without esophagitis; M06.9 Rheumatoid arthritis, unspecified; Z79.4 Long term (current) use of insulin; Z79.899 Other long term (current) drug therapy
CPT/HCPCS: 31720; 36415; 36569; 36600; 70450-TC; 71045-TC; 72125-TC; 72220-TC; 75574; 80048-TC; 80053-TC; 80061-TC; 80076-TC; 80185-TC; 80202-TC; 80305; 81000-TC; 82803-TC; 82962-TC; 83605-TC; 83735-TC; 83880; 84100-TC; 84443-TC; 84484-TC; 85025-TC; 85730-TC; 87040-TC; 87070-TC; 87081-TC; 87086-TC; 87400; 92526; 92611-TC; 93307-TC; 93970-TC; 94002-TC; 94003-TC; 94760-TC; 94799-TC; A4216; A4217; A4624; C1751; G0378; G0480; J0282; J0330; J1165; J1650; J1815; J1940; J2185; J2543; J3370; J3475; J3480; J3490; J7030; J7040; J7042; J7050; J7060; Q9967